=== PATIENT | female | born 1965 | race Caucasian/White ===

== ENCOUNTER → 2016-10-08 | Outpatient (CLI) | payer OTHER ==
[~2016-10-08] MED LIST: ATOR1TAB21 PO; AVEL1TAB PO; CLOB-25 EX; DICL75TA PO; GABA-279 PO; GABA300C3 PO; GABA600T PO; IBUP600T26 PO; LIPI10TA PO; MAGN200T PO; NICO21DI5 TD; NICO21PAT TD; NORC5TAB PO; OMEG1CAP2 PO; PRED20TA PO; VARE05TA PO; VITA100041 PO; VITA500C14 PO; VITATAB73 PO
[2016-10-08 14:59] LABS: BASO % 0.8 % (0.0-1.0); EOS # 0.2 K/mm3 (0.0-0.50); EOS % 3.9 % (0.0-3.0); LYMPH # 1.9 K/mm3 (1.5-4.5); LYMPH % 30.2 % (24.0-44.0); MEAN CORPUSCULAR HEMOGLOBIN 33.6 pg (27.0-33.0); MEAN CORPUSCULAR HGB CONC 33.4 g/dl (32.0-36.5); MEAN CORPUSCULAR VOLUME 100.4 fl (80.0-96.0); MONO # 0.3 K/mm3 (0.0-0.8); MONO % 5.8 % (0.0-5.0); NEUTROPHILS # 3.3 K/mm3 (1.8-7.7); NEUTROPHILS % 56.1 % (36.0-66.0); WHITE BLOOD COUNT 5.8 K/mm3 (4.0-10.0)
[2016-10-08 15:23] LABS: ALBUMIN 3.7 GM/DL (3.2-5.2); ALBUMIN/GLOBULIN RATIO 1.03 (1.00-1.93); ALKALINE PHOSPHATASE 76 U/L (45-117); ALT/SGPT 26 U/L (12-78); ANION GAP 6 MEQ/L (8-16); AST/SGOT 21 U/L (15-37); BILIRUBIN,TOTAL 0.3 MG/DL (0.2-1.0); BLOOD UREA NITROGEN 18 MG/DL (7-18); CARBON DIOXIDE LEVEL 30 MEQ/L (21-32); CHLORIDE LEVEL 102 MEQ/L (98-107); CREATININE FOR GFR 0.76 MG/DL (0.55-1.02); GLOMERULAR FILTRATION RATE > 60.0 (>51); GLUCOSE, FASTING 71 MG/DL (70-105); POTASSIUM SERUM 4.4 MEQ/L (3.5-5.1); SODIUM LEVEL 138 MEQ/L (136-145); TOTAL PROTEIN 7.3 GM/DL (6.4-8.2)
[2016-10-09 11:02] LABS: ALBUMIN 3.99 GM/DL (3.29-5.55); ALBUMIN % 54.6 % (55.8-66.1); GAMMA GLOBULIN % 16.1 % (11.1-18.8)
== END ==
LOC: M LAB 14:24
PROVIDERS: ATTEND Physician Assistant Medical
DX: M54.5 Low back pain (principal)

== ENCOUNTER → 2016-10-08 | Outpatient (CLI) | payer OTHER ==
--- NOTE | 2016-10-08 15:46 | REP ---
Clinical: Spondylosis. Technique: AP, lateral, flexion/extension, bilateral oblique, and coned-down views of the lumbosacral spine. Findings: Mild chronic levoconvex scoliosis appreciated along with minimal anterior spurring, endplate sclerosis and disc space narrowing predominantly at the L4-5 and L5-S1 levels. No acute fracture / compression injury or subluxation. Alignment and lordosis maintained. Impression: Chronic levoconvex scoliosis and mild degenerative changes primarily involving the L4-5 and L5-S1 levels. Signed by Jose Mace MD 10/08/2016 03:37 P
--- NOTE | 2016-10-08 15:53 | REP ---
Clinical: Back pain. Technique: AP and lateral views. Findings: Alignment and kyphosis maintained. Moderate multilevel degenerative changes include anterior osteophytosis with endplate sclerosis and disc space narrowing. No acute fracture / compression injury or subluxation. Impression: Satisfactory alignment. Moderate multilevel degenerative changes. Signed by Jose Mace MD 10/08/2016 03:45 P
--- NOTE | 2016-10-08 15:55 | REP ---
Clinical: Spondylosis. Technique: AP, lateral, flexion/extension, swimmer's, bilateral oblique, and open mouth views. Comparison: 01/14/2016. Findings: Lordosis maintained. Mild multilevel degenerative changes include subtle anterior spurring with endplate sclerosis and minimal disc space narrowing primarily involving the C4-5 and C5-6 levels. Extension view suggests 2 mm of anterolisthesis at the C4-5 and C3-4 levels. No acute fracture / compression injury. Spinous processes are intact. Open mouth view demonstrates normal C1-C2 articulation and odontoid process. Impression: Mild multilevel degenerative changes as noted above. Signed by Jose Mace MD 10/08/2016 03:47 P
== END ==
LOC: M RAD 14:28
PROVIDERS: ATTEND Neurological Surgery
DX: M43.04 Spondylolysis, thoracic region (principal); M47.892 Other spondylosis, cervical region; M47.896 Other spondylosis, lumbar region

== ENCOUNTER → 2016-10-10 | Outpatient (CLI) | payer OTHER ==
--- NOTE | 2016-10-10 16:14 | REP ---
Clinical: Pain . Technique: Internal rotation, external rotation, and Y view left shoulder . Findings: No acute fracture or dislocation. The acromioclavicular and glenohumeral joints are intact. No periarticular calcifications or degenerative changes are appreciated. Sub acromial space is normal. Surrounding soft tissues are unremarkable. Impression: Age appropriate left shoulder radiograph series. Signed by Jose Mace MD 10/10/2016 04:05 P
== END ==
LOC: M RAD 14:58
PROVIDERS: ATTEND Neurological Surgery
DX: M25.512 Pain in left shoulder (principal)

== ENCOUNTER → 2016-11-26 | Outpatient (CLI) | payer OTHER ==
[~2016-11-26] MED LIST changes: +GABA-282 PO; -GABA300C3 PO; +NAPR500T2 PO; +NORC1TAB4 PO; -NORC5TAB PO; +OMEP40CA2 PO; +TIZA2TA PO; +TRAM1CAP15 PO; +TYLE325C PO
[2016-11-28 00:08] LABS: Lyme Disease IgG/IgM Antibodie <0.91 ISR (0.00-0.90); Lyme Disease IgM Ab Quantitati <0.80 index (0.00-0.79)
== END ==
LOC: M LAB 12:26
PROVIDERS: ATTEND Orthopaedic Surgery
DX: S76.112A Strain of left quadriceps muscle, fascia and tendon, initial encounter (principal); X58.XXXA Exposure to other specified factors, initial encounter; Y92.89 Other specified places as the place of occurrence of the external cause; Y93.89 Activity, other specified; Y99.8 Other external cause status

== ENCOUNTER → 2016-12-08 | Outpatient (CLI) | payer OTHER ==
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
== END ==
LOC: M PAIN 15:40
PROVIDERS: ATTEND Nurse Practitioner Family
DX: G89.29 Other chronic pain (principal); M54.2 Cervicalgia; M79.1 Myalgia; E78.00 Pure hypercholesterolemia, unspecified; M19.90 Unspecified osteoarthritis, unspecified site; H90.5 Unspecified sensorineural hearing loss; M47.819 Spondylosis without myelopathy or radiculopathy, site unspecified; F17.200 Nicotine dependence, unspecified, uncomplicated; Z79.899 Other long term (current) drug therapy

== ENCOUNTER → 2016-12-15 | Outpatient (CLI) | payer OTHER | LOC: M LAB 13:22 | PROVIDERS: ATTEND Neurological Surgery | DX: M06.9 Rheumatoid arthritis, unspecified (principal) ==

== ENCOUNTER → 2016-12-17 | Outpatient (CLI) | payer OTHER ==
--- NOTE | 2016-12-17 11:09 | REP ---
MRI RIGHT SHOULDER: TECHNIQUE: Axial T2 fat sat, gradient echo, sagittal oblique T2 fat sat, coronal oblique T1, T2 fat sat. There is mild ill-defined high signal in the supraspinatus tendon compatible with tendinopathy/tendinitis. I do not see a discrete tear of any of the rotator cuff tendons. There are mild hypertrophic degenerative changes of the acromioclavicular joint. Acromion is curved in shape. Biceps tendon is within the bicipital groove with a very small amount of surrounding fluid. There is no Hill-Sachs deformity. Deltoid muscle demonstrates no abnormal signal. There appears to be fraying at the biceps labral complex. I cannot see a discrete labral tear. Subchondral cystic changes are seen in the humeral head. There is no occult fracture. Small amount of fluid is seen in the subacromial subdeltoid bursae suggesting an element of bursitis. IMPRESSION: Supraspinatus tendinopathy/tendinitis without evidence of a rotator cuff tear. Mild hypertrophic degenerative changes of the acromioclavicular joint. Curved shape of the acromion. Fraying at the biceps cayla complex without a discrete labral tear. Subchondral cystic changes humeral head. A small amount of fluid in the subacromial subdeltoid bursae suggests an element of bursitis. Signed by Speedy Smith MD 12/18/2016 04:41 P
== END ==
LOC: M RAD 09:27
PROVIDERS: ATTEND Orthopaedic Surgery
DX: R93.7 Abnormal findings on diagnostic imaging of other parts of musculoskeletal system (principal); M75.41 Impingement syndrome of right shoulder; M25.512 Pain in left shoulder

== ENCOUNTER 2016-12-19 11:45 | Outpatient (RCR) | payer OTHER | END 2016-12-21 | LOC: M PT 11:45 | PROVIDERS: ATTEND Orthopaedic Surgery | DX: Z51.89 Encounter for other specified aftercare (principal); M75.41 Impingement syndrome of right shoulder ==

== ENCOUNTER → 2017-01-02 | Outpatient (CLI) | payer OTHER ==
[~2017-01-02] MED LIST changes: +BUPIVACAINE HCL 0.25% 10 ML VIAL As Ordered ONE; +BUPIVACAINE HCL 0.25% 30 ML VIAL As Ordered ONE; +TRIAMCINOLONE ACETONIDE SUSP 40 MG/ML VIAL (J3301) As Ordered ONE; +diazePAM 5 MG TAB As Ordered ONE; +oxyCODONE 5MG TAB As Ordered ONE
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
== END ==
LOC: M PAIN 08:40
PROVIDERS: ATTEND Anesthesiology
DX: G89.29 Other chronic pain (principal); M79.1 Myalgia; M54.2 Cervicalgia; M25.511 Pain in right shoulder; M25.512 Pain in left shoulder; E78.00 Pure hypercholesterolemia, unspecified; M19.90 Unspecified osteoarthritis, unspecified site; H91.93 Unspecified hearing loss, bilateral; M51.9 Unspecified thoracic, thoracolumbar and lumbosacral intervertebral disc disorder; F17.210 Nicotine dependence, cigarettes, uncomplicated; Z79.899 Other long term (current) drug therapy

== ENCOUNTER → 2017-01-08 | Outpatient (REF) | payer OTHER ==
[~2017-01-08] MED LIST changes: -BUPIVACAINE HCL 0.25% 10 ML VIAL As Ordered ONE; -BUPIVACAINE HCL 0.25% 30 ML VIAL As Ordered ONE; -TRIAMCINOLONE ACETONIDE SUSP 40 MG/ML VIAL (J3301) As Ordered ONE; -diazePAM 5 MG TAB As Ordered ONE; -oxyCODONE 5MG TAB As Ordered ONE
== END ==
LOC: M SFHCWAGY 14:07
PROVIDERS: ATTEND Nurse Practitioner Family
DX: Z01.419 Encounter for gynecological examination (general) (routine) without abnormal findings (principal)

== ENCOUNTER 2017-01-15 15:15 | Outpatient (RCR) | payer OTHER | END 2017-01-21 | disposition home or self-care (01) | LOC: M PT 15:15 | PROVIDERS: ATTEND Orthopaedic Surgery | DX: Z51.89 Encounter for other specified aftercare (principal); M75.41 Impingement syndrome of right shoulder ==

== ENCOUNTER → 2017-01-28 | Outpatient (CLI) | payer OTHER ==
[~2017-01-28] MED LIST changes: -AVEL1TAB PO; +AVEL1TAB3 PO; +IBUP-1022 PO; -IBUP600T26 PO; -NAPR500T2 PO; +NAPR500T3 PO; +VITA-182 PO; -VITA100041 PO
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
== END ==
LOC: M PAIN 14:00
PROVIDERS: ATTEND Nurse Practitioner Family
DX: M54.2 Cervicalgia (principal); M79.1 Myalgia; Z79.891 Long term (current) use of opiate analgesic; Z79.899 Other long term (current) drug therapy; F17.210 Nicotine dependence, cigarettes, uncomplicated

== ENCOUNTER → 2017-02-19 | Outpatient (CLI) | payer OTHER ==
[~2017-02-19] MED LIST changes: +BUPIVACAINE HCL 0.25% 10 ML VIAL As Ordered ONE; +BUPIVACAINE HCL 0.25% 30 ML VIAL As Ordered ONE; +TRIAMCINOLONE ACETONIDE SUSP 40 MG/ML VIAL (J3301) As Ordered ONE; +diazePAM 5 MG TAB As Ordered ONE; +oxyCODONE 5MG TAB As Ordered ONE
--- NOTE | 2017-03-02 00:02 | ECWPNPC ---
PATIENT NAME: OMAR REYES : 1965 GENDER: FEMALE VISIT DATE: 02/19/2017 DISCHARGE DATE: 02/19/179 VISIT LOCKED DATE TIME: PHYSICIAN: ZEKE SNOW RESOURCE: ZEKE SNOW REASON FOR APPOINTMENT 1. NECK AND SHOULDERS HISTORY OF PRESENT ILLNESS HISTORY OF PRESENT ILLNESS: PAIN THE PATIENT DESCRIBES THE PAIN... FALL RISK SCREENING: SCREENING :NO FALLS IN THE PAST YEAR CURRENT MEDICATIONS TAKING TIZANIDINE HCL 4 MG TABLET 2 TABS ORALLY BID, NOTES: 02/18/17 1930 TAKING ATORVASTATIN CALCIUM 20 MG TABLET 1 TABLET ORALLY ONCE A DAY, NOTES: 02/19/17 0800A TAKING GABAPENTIN 800 MG TABLET 1 CAPSULE ORALLY TID, NOTES: 02/19/17 0800A TAKING DICLOFENAC SODIUM 75 MG TABLET DELAYED RELEASE 1 TABLET ORALLY TWICE A DAY, NOTES: 02/19/17 0800A TAKING OMEPRAZOLE 40 MG CAPSULE DELAYED RELEASE 1 CAPSULE ORALLY ONCE A DAY, NOTES: 02/19/17 0800A TAKING CLOBETASOL PROPIONATE 0.05 % CREAM 1 APPLICATION TO AFFECTED AREA EXTERNALLY TWICE A DAY PRN, NOTES: 02/18/17 1600 TAKING TRAMADOL HCL 50 MG TABLET 2 TABS ORALLY THREE TIMES DAILY NEEDED FOR PAIN MDD=6, NOTES: 02/19/17 0530A MEDICATION LIST REVIEWED AND RECONCILED WITH THE PATIENT PAST MEDICAL HISTORY HYPERCHOLESTEREMIA NECK PAIN ARTHRITIS NERVE RELATED DEAFNESS BILATERALLY PYELONEPHRITIS DDD SPRAINED LEFT BICEP ALLERGIES N.K.D.A. SURGICAL HISTORY ACL REPAIR RIGHT 1997 CATARACT REMOVALS 2013 BREAST BIOPSY FOR BENIGN CALCIFICATIONS DR FARLEY 2014 COLONOSCOPY 05/21/15 HOSPITALIZATION/MAJOR DIAGNOSTIC PROCEDURE FLU SYMPTOMS WITH HYPOTENSION AND DEHYDRATION 07/2014 REVIEW OF SYSTEMS REVIEWED BY: PROVIDER: . CONSTITUTIONAL: ANY CHANGE IN YOUR MEDICAL CONDITION? NO . CHILLS NO . FEVER NO . INFECTION: DO YOU HAVE NEW INFECTIONS? NO . DO YOU HAVE HISTORY OF MRSA? NO . MUSCULOSKELETAL: ANY NEW PATTERNS OF PAIN OR NUMBNESS? NO . GASTROENTEROLOGY: ANY NEW CHANGE IN BOWEL CONTROL? NO . GENITOURINARY: ANY NEW CHANGE IN BLADDER CONTROL? NO . IS THERE A CHANCE YOU COULD BE ? NO . HEMATOLOGY/LYMPH: DO YOU TAKE ANY BLOOD THINNERS? (FOR EXAMPLE- COUMADIN, PLAVIX, AGGRENOX, PLATEL, PRADAXA, OR XARELTO) NO . WHEN WAS YOUR LAST DOSE? DATE: TIME: . NEUROLOGY: HAVE YOU FALLEN IN THE PAST 6 MONTHS? NO . ANY NEW EXTREMITY NUMBNESS OR WEAKNESS? NO . CARDIOLOGY: DO YOU HAVE A PACEMAKER OR DEFIBRILLATOR? NO . RESPIRATORY: HAVE YOU BEEN SICK IN THE PAST WEEK? NO . FEVER NO . FLU LIKE SYMPTOMS? NO . COUGH NO . INTEGUMENTARY: DO YOU HAVE ANY RASHES OR OPEN SORES? NO . ALLERGIC/IMMUNO: ARE YOU ALLERGIC TO SHELLFISH OR IV DYE? NO . ANY NEW ALLERGIES? NO . PSYCHIATRIC: DO YOU HAVE THOUGHTS OF HURTING YOURSELF OR SOMEONE ELSE? NO . ARE YOU ABUSED, NEGLECTED, OR IN AN UNSAFE ENVIRONMENT? NO . ENDOCRINOLOGY: ARE YOU DIABETIC? NO . OTHER: DO YOU NEED ANY PRESCRIPTIONS? NO . IF YES, PLEASE LIST: ____ . ANY NEW PROBLEMS WITH YOUR MEDICATIONS? NO . WHEN DID YOU LAST EAT? 02/19/17 0830A . WHEN DID YOU LAST DRINK? 02/19/17 1300 . WHAT DID YOU LAST DRINK? WATER . NAME OF PERSON DRIVING YOU HOME? HALEY LUNA . DO YOU HAVE ANY OTHER QUESTIONS OR CONCERNS NO . VITAL SIGNS WT 108 LBS, HT 60 IN, BMI 21.09 INDEX, BP 163/78 MM HG, HR 65 /MIN, RR 18 /MIN, TEMP 98.1 F, OXYGEN SAT % 100%, NA INITIALS SC 14:57. ASSESSMENTS MYALGIA - M79.1 (PRIMARY) PROCEDURES PN TRIGGER POINT INJECTION WITH STEROIDS PRE PROCEDURE DIAGNOSIS 1. MYALGIA 2. PAIN AT BILATERAL SHOULDER AREA, BILATERAL THORACIC AREA, AND BILATERAL LOWER BACK AREA POST PROCEDURE DIAGNOSIS 1. MYALGIA 2. PAIN AT BILATERAL SHOULDER AREA, BILATERAL THORACIC AREA, AND BILATERAL LOWER BACK AREA PROCEDURE TRIGGER POINT INJECTION AT BILATERAL SHOULDER AREA, BILATERAL THORACIC AREA, AND BILATERAL LOWER BACK AREA SURGEON DR. ZEKE SNOW VAULT WORKER NONE ANESTHESIA LOCAL PRE PROCEDURE NOTE THE PATIENT HAS A HISTORY OF CHRONIC PAIN AT THE RIGHT AND LEFT SHOULDER AREA, RIGHT AND LEFT THORACIC AREA AND RIGHT AND LEFT LOWER BACK AREA. I EVALUATE THE PATIENT AND REVIEWED THE CHART. THERE IS EVIDENCE OF BANDS OF TISSUE WITH RESTRICTION OF MOVEMENT AND PRESENCE OF TRIGGER POINT AT THE AFFECTED AREA. I WENT OVER THE RISKS, ALTERNATIVES, AND BENEFITS ASSOCIATED WITH THIS PROCEDURE. THE PATIENT WOULD LIKE TO PROCEED AND GIVE CONSENT TO PERFORMED THE PROCEDURE. THE PATIENT DENIES UNEXPLAINABLE WEIGHT LOSS, FEVER, CHILLS, OR NEW CHANGES IN URINARY OR BOWEL CONTROL DESCRIPTION OF PROCEDURE THE PATIENT WAS BROUGHT TO THE PROCEDURE ROOM AND PLACED IN THE SITTING POSITION. THE AREA WAS CLEANED WITH ALCOHOL. THE PROCEDURE WAS DONE USING ASEPTIC STERILE TECHNIQUE. I CHECKED LATERALITY AND THE LEVEL WHERE THE PROCEDURE WAS GOING TO BE PERFORMED WITH THE PATIENT AND THE SUPPORTING STAFF AT THE MOMENT OF THE TIME OUT IN THE PROCEDURE ROOM. USING A 25-GAUGE NEEDLE, TRIGGER POINTS WERE INJECTED AT THE RIGHT AND LEFT SHOULDER AREA, RIGHT AND LEFT THORACIC AREA, AND RIGHT AND LEFT LOWER BACK AREA WITH A TOTAL OF 40 ML OF BUPIVACAINE 0.25% AND KENALOG 40 MG. THERE WAS NO EVIDENCE OF BLOOD, PARESTHESIA OR CEREBROSPINAL FLUID DURING THE PROCEDURE. THE PATIENT WAS SENT TO THE RECOVERY ROOM. THE PATIENT WAS MOVING THE EXTREMITIES AND DOING WELL. THERE WAS NO COMPLICATION DURING THE PROCEDURE POST PROCEDURE NOTE THE PATIENT WILL BE SEEN IN A FOLLOW UP IN THE NEXT FEW WEEKS. INSTRUCTIONS WERE GIVEN, QUESTIONS WERE ANSWERED, AND THE PATIENT EXPRESSED UNDERSTANDING AND AGREES WITH THE PLAN. I, RC SCHWARTZ, DOCUMENTED THE ABOVE INFORMATION ACTING A SCRIBE FOR DR. SNOW. I, DR. SNOW, HAVE REVIEWED THE ABOVE DOCUMENT, SCRIBED BY RC SCHWARTZ, AND I VERIFY THAT IT IS ACCURATE PROCEDURE CODES 18613 INJECT TRIGGER POINTS 3/> DISPOSITION & COMMUNICATION FOLLOW UP 3 WEEKS ELECTRONICALLY SIGNED BY ZEKE SNOW MD ON 03/01/2017 AT 07:26 PM EDT DISCLAIMER : THIS IS A VISIT SUMMARY EXTRACTED FROM THE [employer] CHART. IT IS NOT A COPY OF THE [employer] PROGRESS NOTE. AUDREY
== END ==
LOC: M PAIN 15:20
PROVIDERS: ATTEND Anesthesiology
DX: G89.29 Other chronic pain (principal); M79.1 Myalgia; M54.2 Cervicalgia; M54.6 Pain in thoracic spine; M54.5 Low back pain; M25.511 Pain in right shoulder; M25.512 Pain in left shoulder; Z79.899 Other long term (current) drug therapy; Z79.891 Long term (current) use of opiate analgesic

== ENCOUNTER → 2017-02-20 | Outpatient (RCR) | payer OTHER ==
[~2017-02-20] MED LIST changes: -BUPIVACAINE HCL 0.25% 10 ML VIAL As Ordered ONE; -BUPIVACAINE HCL 0.25% 30 ML VIAL As Ordered ONE; -TRIAMCINOLONE ACETONIDE SUSP 40 MG/ML VIAL (J3301) As Ordered ONE; -diazePAM 5 MG TAB As Ordered ONE; -oxyCODONE 5MG TAB As Ordered ONE
== END ==
LOC: M PT 02-03 12:56
PROVIDERS: ATTEND Nurse Practitioner Family
DX: Z51.89 Encounter for other specified aftercare (principal); M79.1 Myalgia

== ENCOUNTER → 2017-03-06 | Outpatient (CLI) | payer OTHER ==
--- NOTE | 2017-03-30 00:25 | ECWPNPC ---
PATIENT NAME: OMAR REYES : 1965 GENDER: FEMALE VISIT DATE: 03/06/2017 DISCHARGE DATE: 03/06/17 1500 VISIT LOCKED DATE TIME: PHYSICIAN: MO RUDOLPH RESOURCE: MO RUDOLPH REASON FOR APPOINTMENT 1. POST TPI HISTORY OF PRESENT ILLNESS HISTORY OF PRESENT ILLNESS: PAIN THE PATIENT DESCRIBES THE PAIN... FALL RISK SCREENING: SCREENING :NO FALLS IN THE PAST YEAR TODAY'S VISIT: NOTES: RATES PAIN TODAY 1-3/10. DESCRIBES PAIN INTERMITTANT, SHARP AND TENDER. PAIN OCCURS WITH NECK AND LEFT SHOULDER MOVEMENT . CURRENT MEDICATIONS TAKING ATORVASTATIN CALCIUM 20 MG TABLET 1 TABLET ORALLY ONCE A DAY TAKING GABAPENTIN 800 MG TABLET 1 CAPSULE ORALLY TWICE DAILY, NOTES: TAKES 1/2 PILL TAKING DICLOFENAC SODIUM 75 MG TABLET DELAYED RELEASE 1 TABLET ORALLY TWICE A DAY TAKING OMEPRAZOLE 40 MG CAPSULE DELAYED RELEASE 1 CAPSULE ORALLY ONCE A DAY TAKING CLOBETASOL PROPIONATE 0.05 % CREAM 1 APPLICATION TO AFFECTED AREA EXTERNALLY TWICE A DAY PRN TAKING TRAMADOL HCL 50 MG TABLET 2 TABS ORALLY THREE TIMES DAILY NEEDED FOR PAIN MDD=6, NOTES: TAKING 2 A DAY USUALLY TAKING TIZANIDINE HCL 4 MG TABLET 2 TABS ORALLY BID, NOTES: TAKES ONLY AT NIGHT MEDICATION LIST REVIEWED AND RECONCILED WITH THE PATIENT PAST MEDICAL HISTORY HYPERCHOLESTEREMIA NECK PAIN ARTHRITIS NERVE RELATED DEAFNESS BILATERALLY PYELONEPHRITIS DDD SPRAINED LEFT BICEP ALLERGIES N.K.D.A. REVIEW OF SYSTEMS REVIEWED BY: PROVIDER: MO RUDOLPH POURER . CONSTITUTIONAL: ANY CHANGE IN YOUR MEDICAL CONDITION? NO . CHILLS NO . FEVER NO . INFECTION: DO YOU HAVE NEW INFECTIONS? NO . DO YOU HAVE HISTORY OF MRSA? NO . MUSCULOSKELETAL: ANY NEW PATTERNS OF PAIN OR NUMBNESS? NO . GASTROENTEROLOGY: ANY NEW CHANGE IN BOWEL CONTROL? NO . GENITOURINARY: ANY NEW CHANGE IN BLADDER CONTROL? NO . IS THERE A CHANCE YOU COULD BE ? NO . HEMATOLOGY/LYMPH: DO YOU TAKE ANY BLOOD THINNERS? (FOR EXAMPLE- COUMADIN, PLAVIX, AGGRENOX, PLATEL, PRADAXA, OR XARELTO) NO . WHEN WAS YOUR LAST DOSE? DATE: TIME: . NEUROLOGY: HAVE YOU FALLEN IN THE PAST 6 MONTHS? NO . ANY NEW EXTREMITY NUMBNESS OR WEAKNESS? NO . CARDIOLOGY: DO YOU HAVE A PACEMAKER OR DEFIBRILLATOR? NO . RESPIRATORY: HAVE YOU BEEN SICK IN THE PAST WEEK? NO . FEVER NO . FLU LIKE SYMPTOMS? NO . COUGH NO . INTEGUMENTARY: DO YOU HAVE ANY RASHES OR OPEN SORES? NO . ALLERGIC/IMMUNO: ARE YOU ALLERGIC TO SHELLFISH OR IV DYE? NO . ANY NEW ALLERGIES? NO . PSYCHIATRIC: DO YOU HAVE THOUGHTS OF HURTING YOURSELF OR SOMEONE ELSE? NO . ARE YOU ABUSED, NEGLECTED, OR IN AN UNSAFE ENVIRONMENT? NO . ENDOCRINOLOGY: ARE YOU DIABETIC? NO . OTHER: DO YOU NEED ANY PRESCRIPTIONS? NO . IF YES, PLEASE LIST: ____ . ANY NEW PROBLEMS WITH YOUR MEDICATIONS? NO . WHEN DID YOU LAST EAT? ____ . WHEN DID YOU LAST DRINK? ____ . WHAT DID YOU LAST DRINK? ____ . NAME OF PERSON DRIVING YOU HOME? ____ . DO YOU HAVE ANY OTHER QUESTIONS OR CONCERNS NO . VITAL SIGNS WT 106.2 LBS, HT 60 IN, BMI 20.74 INDEX, BP 141/88 MM HG, HR 71 /MIN, RR 16 /MIN, TEMP 98.8 F, OXYGEN SAT % 100%, NA INITIALS TL 1409. EXAMINATION GENERAL EXAMINATION: PSYCHALERT , ORIENTED X 3 , APPROPRIATE MOOD AND AFFECT , GOOD EYE CONTACT. LUNGS:CLEAR TO AUSCULTATION BILATERALLY, NO WHEEZES, RALES OR RHONCHI. HEART:NORMAL S1S2, NO MURMURS, CLICK OR RUBS. MUSCULOSKELETAL:MILD TENDERNESS OVER LEFT OCCIPITAL NOTCH, OVER THE CERVICAL SPINOUS PROCESSES AND ACROSS TRAPEZIUS MUSCLES BILATERALLY. , TRIGGER POINTS AND TIGHT FIBEROUS BANDS IDENTIFIED OVER NECK AND SHOULDER MUSCLES BILATERALLY. DECREASED ROM WITH NECK FLEXION, EXTENSION AND ROTATION. BALL MILL MIXER STRENGTH EQUAL .. NEUROLOGIC EXAM:DTR'S 2 + BILATERAL UPPER AND LOWER EXTREMITIES. HYPERSENSATIVITY TO LIGHT TOUCH ACROSS SHOULDER GIRDLE. . ASSESSMENTS MYALGIA - M79.1 (PRIMARY) CERVICALGIA - M54.2 TREATMENT MYALGIA TRIGGER POINT 3 + MO LARRY 03/06/2017 2:43:36 PM > NECK SHOULDERS, UPPER BACK NOTES: CONTINUE CURRENT EXERCISES AND STRETCHES. PREVENTIVE MEDICINE DISCUSSED PRE PROCEDURE CARE AND TPI/ PT STATES UNDERSTANDING. PROCEDURE CODES FA211 ESTABILISHED PATIENT [facility] CHARGE DISPOSITION & COMMUNICATION FOLLOW UP SCHED TPI FOR END OF FEBRUARY (REASON: CHECK AUTH FOR TPI) ELECTRONICALLY SIGNED BY NORMA CANDELARIO ON 03/29/2017 AT 10:38 AM EDT DISCLAIMER : THIS IS A VISIT SUMMARY EXTRACTED FROM THE [facility] CHART. IT IS NOT A COPY OF THE [employer] PROGRESS NOTE. AUDREY
== END ==
LOC: M PAIN 14:00
PROVIDERS: ATTEND Nurse Practitioner Family
DX: G89.29 Other chronic pain (principal); M54.2 Cervicalgia; M79.1 Myalgia; E78.00 Pure hypercholesterolemia, unspecified; M19.90 Unspecified osteoarthritis, unspecified site; Z79.899 Other long term (current) drug therapy

== ENCOUNTER 2017-03-11 11:00 | Outpatient (RCR) | payer OTHER | END 2017-03-23 | LOC: M PT 11:00 | PROVIDERS: ATTEND Nurse Practitioner Family | DX: Z51.89 Encounter for other specified aftercare (principal); M65.811 Other synovitis and tenosynovitis, right shoulder; M75.42 Impingement syndrome of left shoulder; M54.2 Cervicalgia; M79.1 Myalgia ==

== ENCOUNTER → 2017-03-12 | Outpatient (CLI) | payer OTHER ==
[2017-03-12 10:46] LABS: BASO % 0.6 % (0.0-1.0); EOS # 0.1 K/mm3 (0.0-0.50); EOS % 2.1 % (0.0-3.0); LYMPH # 2.4 K/mm3 (1.5-4.5); LYMPH % 32.6 % (24.0-44.0); MEAN CORPUSCULAR HEMOGLOBIN 30.2 pg (27.0-33.0); MEAN CORPUSCULAR HGB CONC 32.6 g/dl (32.0-36.5); MEAN CORPUSCULAR VOLUME 92.7 fl (80.0-96.0); MONO # 0.6 K/mm3 (0.0-0.8); MONO % 8.1 % (0.0-5.0); NEUTROPHILS # 3.7 K/mm3 (1.8-7.7); NEUTROPHILS % 53.8 % (36.0-66.0); RED CELL DISTRIBUTION WIDTH 14.3 % (11.5-14.5); WHITE BLOOD COUNT 6.8 K/mm3 (4.0-10.0)
[2017-03-12 11:36] LABS: ALBUMIN 3.9 GM/DL (3.2-5.2); ALBUMIN/GLOBULIN RATIO 0.98 (1.00-1.93); ALKALINE PHOSPHATASE 58 U/L (45-117); ALT/SGPT 31 U/L (12-78); ANION GAP 6 MEQ/L (8-16); AST/SGOT 22 U/L (15-37); BILIRUBIN,TOTAL 0.3 MG/DL (0.2-1.0); BLOOD UREA NITROGEN 16 MG/DL (7-18); CALCIUM LEVEL 9.5 MG/DL (8.5-10.1); CARBON DIOXIDE LEVEL 27 MEQ/L (21-32); CHLORIDE LEVEL 111 MEQ/L (98-107); CHOLESTEROL LEVEL 265 MG/DL (<200); CREATININE FOR GFR 0.97 MG/DL (0.55-1.02); GLOMERULAR FILTRATION RATE > 60.0 (>51); GLUCOSE, FASTING 80 MG/DL (70-105); POTASSIUM SERUM 4.7 MEQ/L (3.5-5.1); SODIUM LEVEL 144 MEQ/L (136-145); TOTAL PROTEIN 7.9 GM/DL (6.4-8.2); TRIGLYCERIDES LEVEL 100 MG/DL (<150)
== END ==
LOC: M LAB 09:54
PROVIDERS: ATTEND Physician Assistant Medical
DX: E78.2 Mixed hyperlipidemia (principal); E55.9 Vitamin D deficiency, unspecified

== ENCOUNTER → 2017-03-23 | Outpatient (CLI) | payer OTHER ==
[~2017-03-23] MED LIST changes: +BUPIVACAINE HCL 0.25% 10 ML VIAL As Ordered ONE; +BUPIVACAINE HCL 0.25% 30 ML VIAL As Ordered ONE; +TRIAMCINOLONE ACETONIDE SUSP 40 MG/ML VIAL (J3301) As Ordered ONE; +diazePAM 5 MG TAB As Ordered ONE; +oxyCODONE 5MG TAB As Ordered ONE
--- NOTE | 2017-04-07 00:49 | ECWPNPC ---
PATIENT NAME: OMAR REYES : 1965 GENDER: FEMALE VISIT DATE: 03/23/2017 DISCHARGE DATE: 03/23/17 1515 VISIT LOCKED DATE TIME: PHYSICIAN: ZEKE SNOW RESOURCE: ZEKE SNOW REASON FOR APPOINTMENT 1. TPI HISTORY OF PRESENT ILLNESS HISTORY OF PRESENT ILLNESS: PAIN THE PATIENT DESCRIBES THE PAIN... FALL RISK SCREENING: SCREENING :NO FALLS IN THE PAST YEAR CURRENT MEDICATIONS TAKING ATORVASTATIN CALCIUM 20 MG TABLET 1 TABLET ORALLY ONCE A DAY, NOTES: 3 WEEKS CAN TAKING GABAPENTIN 800 MG TABLET 1 CAPSULE ORALLY TWICE DAILY, NOTES: TAKES 1/2 PILL 03/23/17 0700 TAKING DICLOFENAC SODIUM 75 MG TABLET DELAYED RELEASE 1 TABLET ORALLY TWICE A DAY, NOTES: 03/23/17 07 TAKING CLOBETASOL PROPIONATE 0.05 % CREAM 1 APPLICATION TO AFFECTED AREA EXTERNALLY TWICE A DAY PRN, NOTES: 03/22/17 TAKING TRAMADOL HCL 50 MG TABLET 2 TABS ORALLY THREE TIMES DAILY NEEDED FOR PAIN MDD=6, NOTES: 03/23/17 0700 TAKING TIZANIDINE HCL 4 MG TABLET 2 TABS ORALLY BID, NOTES: 03/22/17 2200 NOT-TAKING OMEPRAZOLE 40 MG CAPSULE DELAYED RELEASE 1 CAPSULE ORALLY ONCE A DAY MEDICATION LIST REVIEWED AND RECONCILED WITH THE PATIENT PAST MEDICAL HISTORY HYPERCHOLESTEREMIA NECK PAIN ARTHRITIS NERVE RELATED DEAFNESS BILATERALLY PYELONEPHRITIS DDD SPRAINED LEFT BICEP ALLERGIES N.K.D.A. REVIEW OF SYSTEMS REVIEWED BY: PROVIDER: . CONSTITUTIONAL: ANY CHANGE IN YOUR MEDICAL CONDITION? NO . CHILLS NO . FEVER NO . INFECTION: DO YOU HAVE NEW INFECTIONS? NO . DO YOU HAVE HISTORY OF MRSA? NO . MUSCULOSKELETAL: ANY NEW PATTERNS OF PAIN OR NUMBNESS? NO . GASTROENTEROLOGY: ANY NEW CHANGE IN BOWEL CONTROL? NO . GENITOURINARY: ANY NEW CHANGE IN BLADDER CONTROL? NO . IS THERE A CHANCE YOU COULD BE ? NO . HEMATOLOGY/LYMPH: DO YOU TAKE ANY BLOOD THINNERS? (FOR EXAMPLE- COUMADIN, PLAVIX, AGGRENOX, PLATEL, PRADAXA, OR XARELTO) NO . WHEN WAS YOUR LAST DOSE? DATE: TIME: . NEUROLOGY: HAVE YOU FALLEN IN THE PAST 6 MONTHS? NO . ANY NEW EXTREMITY NUMBNESS OR WEAKNESS? NO . CARDIOLOGY: DO YOU HAVE A PACEMAKER OR DEFIBRILLATOR? NO . RESPIRATORY: HAVE YOU BEEN SICK IN THE PAST WEEK? NO . FEVER NO . FLU LIKE SYMPTOMS? NO . COUGH NO . INTEGUMENTARY: DO YOU HAVE ANY RASHES OR OPEN SORES? NO . ALLERGIC/IMMUNO: ARE YOU ALLERGIC TO SHELLFISH OR IV DYE? NO . ANY NEW ALLERGIES? NO . PSYCHIATRIC: DO YOU HAVE THOUGHTS OF HURTING YOURSELF OR SOMEONE ELSE? NO . ARE YOU ABUSED, NEGLECTED, OR IN AN UNSAFE ENVIRONMENT? NO . ENDOCRINOLOGY: ARE YOU DIABETIC? NO . OTHER: DO YOU NEED ANY PRESCRIPTIONS? NO . IF YES, PLEASE LIST: ____ . ANY NEW PROBLEMS WITH YOUR MEDICATIONS? NO . WHEN DID YOU LAST EAT? ____03/22/17 1800 . WHEN DID YOU LAST DRINK? ____03/23/17 1900 . WHAT DID YOU LAST DRINK? ____WATER . NAME OF PERSON DRIVING YOU HOME? ____SHEBA BINGHAM . DO YOU HAVE ANY OTHER QUESTIONS OR CONCERNS NO . VITAL SIGNS WT 106.2 LBS, HT 60 IN, BMI 20.74 INDEX, BP 147/101 MM HG, REPEAT BP 130/84 MANUAL, HR 78 /MIN, RR 16 /MIN, TEMP 98.3 F, OXYGEN SAT % 99%, SAFE IN ENV? (Y/N) YES, NA INITIALS TL 1326, REVIEWED BY: LAS. SINGH MYALGIA - M79.1 (PRIMARY) PROCEDURES PN TRIGGER POINT INJECTION WITH STEROIDS PRE PROCEDURE DIAGNOSIS 1. MYALGIA 2. PAIN AT LEFT NECK AREA AND BILATERAL SHOULDER AREA POST PROCEDURE DIAGNOSIS 1. MYALGIA 2. PAIN AT LEFT NECK AREA AND BILATERAL SHOULDER AREA PROCEDURE TRIGGER POINT INJECTION AT LEFT NECK AREA AND BILATERAL SHOULDER AREA SURGEON DR. ZEKE SNOW MACHINE II CUTTER NONE ANESTHESIA LOCAL PRE PROCEDURE NOTE THE PATIENT HAS A HISTORY OF CHRONIC PAIN AT THE LEFT NECK AREA AND RIGHT AND LEFT SHOULDER AREA. I EVALUATE THE PATIENT AND REVIEWED THE CHART. THERE IS EVIDENCE OF BANDS OF TISSUE WITH RESTRICTION OF MOVEMENT AND PRESENCE OF TRIGGER POINT AT THE AFFECTED AREA. I WENT OVER THE RISKS, ALTERNATIVES, AND BENEFITS ASSOCIATED WITH THIS PROCEDURE. THE PATIENT WOULD LIKE TO PROCEED AND GIVE CONSENT TO PERFORMED THE PROCEDURE. THE PATIENT DENIES UNEXPLAINABLE WEIGHT LOSS, FEVER, CHILLS, OR NEW CHANGES IN URINARY OR BOWEL CONTROL DESCRIPTION OF PROCEDURE THE PATIENT WAS BROUGHT TO THE PROCEDURE ROOM AND PLACED IN THE SITTING POSITION. THE AREA WAS CLEANED WITH ALCOHOL. THE PROCEDURE WAS DONE USING ASEPTIC STERILE TECHNIQUE. I CHECKED LATERALITY AND THE LEVEL WHERE THE PROCEDURE WAS GOING TO BE PERFORMED WITH THE PATIENT AND THE SUPPORTING STAFF AT THE MOMENT OF THE TIME OUT IN THE PROCEDURE ROOM. USING A 25-GAUGE NEEDLE, TRIGGER POINTS WERE INJECTED AT THE LEFT NECK AREA AND RIGHT AND LEFT SHOULDER AREA WITH A TOTAL OF 40 ML OF BUPIVACAINE 0.25% AND KENALOG 40 MG. THERE WAS NO EVIDENCE OF BLOOD, PARESTHESIA OR CEREBROSPINAL FLUID DURING THE PROCEDURE. THE PATIENT WAS SENT TO THE RECOVERY ROOM. THE PATIENT WAS MOVING THE EXTREMITIES AND DOING WELL. THERE WAS NO COMPLICATION DURING THE PROCEDURE POST PROCEDURE NOTE THE PATIENT WILL BE SEEN IN A FOLLOW UP IN THE NEXT FEW WEEKS. INSTRUCTIONS WERE GIVEN, QUESTIONS WERE ANSWERED, AND THE PATIENT EXPRESSED UNDERSTANDING AND AGREES WITH THE PLAN. I, RC SCHWARTZ, DOCUMENTED THE ABOVE INFORMATION ACTING A SCRIBE FOR DR. SNOW. I HAVE REVIEWED THE ABOVE DOCUMENT, WRITTEN BY RC CONTRERAS AND I VERIFY THAT IT IS ACCURATE PROCEDURE CODES 63987 INJECT TRIGGER POINTS 3/> DISPOSITION & COMMUNICATION FOLLOW UP 3 WEEKS ELECTRONICALLY SIGNED BY ZEKE SNOW MD ON 04/06/2017 AT 08:01 PM EDT DISCLAIMER : THIS IS A VISIT SUMMARY EXTRACTED FROM THE [employer] CHART. IT IS NOT A COPY OF THE [employer] PROGRESS NOTE. AUDREY
== END ==
LOC: M PAIN 13:00
PROVIDERS: ATTEND Anesthesiology
DX: G89.29 Other chronic pain (principal); M54.2 Cervicalgia; M25.511 Pain in right shoulder; M25.512 Pain in left shoulder; M79.1 Myalgia; E78.00 Pure hypercholesterolemia, unspecified; M19.90 Unspecified osteoarthritis, unspecified site; Z79.899 Other long term (current) drug therapy
CPT/HCPCS: 20553; J3301

== ENCOUNTER → 2017-04-08 | Outpatient (CLI) | payer OTHER ==
[~2017-04-08] MED LIST changes: -BUPIVACAINE HCL 0.25% 10 ML VIAL As Ordered ONE; -BUPIVACAINE HCL 0.25% 30 ML VIAL As Ordered ONE; -TRIAMCINOLONE ACETONIDE SUSP 40 MG/ML VIAL (J3301) As Ordered ONE; -diazePAM 5 MG TAB As Ordered ONE; -oxyCODONE 5MG TAB As Ordered ONE
--- NOTE | 2017-04-23 00:55 | ECWPNPC ---
PATIENT NAME: OMAR REYES : 1965 GENDER: FEMALE VISIT DATE: 04/08/2017 DISCHARGE DATE: 04/08/17 1411 VISIT LOCKED DATE TIME: PHYSICIAN: MO RUDOLPH RESOURCE: MO RUDOLPH REASON FOR APPOINTMENT 1. POST PROCEDURE HISTORY OF PRESENT ILLNESS HISTORY OF PRESENT ILLNESS: PAIN THE PATIENT DESCRIBES THE PAIN... FALL RISK SCREENING: SCREENING :NO FALLS IN THE PAST YEAR TODAY'S VISIT: NOTES: S/P TRIGGER POINT INJECTION COMPLETED ON. 03/23/17. RATES PAIN TODAY 2/10. PAIN IS CENTERED AT BASE OF LEFT NECK AND AT BILATERAL TEMPLES. HAS NOTED SIGNIFICANT IMPROVEMENT IN PAIN AND MOVEMENT.. CURRENT MEDICATIONS TAKING DICLOFENAC SODIUM 75 MG TABLET DELAYED RELEASE 1 TABLET ORALLY TWICE A DAY TAKING CLOBETASOL PROPIONATE 0.05 % CREAM 1 APPLICATION TO AFFECTED AREA EXTERNALLY TWICE A DAY PRN TAKING TRAMADOL HCL 50 MG TABLET 2 TABS ORALLY THREE TIMES DAILY NEEDED FOR PAIN MDD=6 TAKING TIZANIDINE HCL 4 MG TABLET 2 TABS ORALLY BID TAKING HYDROXYCHLOROQUINE SULFATE 200 MG TABLET 1 TABLET WITH FOOD OR MILK ORALLY TWICE A DAY TAKING EZETIMIBE 10 MG TABLET 1 TABLET ORALLY ONCE A DAY TAKING OMEPRAZOLE 40 MG CAPSULE DELAYED RELEASE 1 CAPSULE ORALLY ONCE A DAY DISCONTINUED ATORVASTATIN CALCIUM 20 MG TABLET 1 TABLET ORALLY ONCE A DAY DISCONTINUED GABAPENTIN 800 MG TABLET 1 CAPSULE ORALLY TWICE DAILY MEDICATION LIST REVIEWED AND RECONCILED WITH THE PATIENT PAST MEDICAL HISTORY HYPERCHOLESTEREMIA NECK PAIN ARTHRITIS NERVE RELATED DEAFNESS BILATERALLY PYELONEPHRITIS DDD SPRAINED LEFT BICEP ALLERGIES N.K.D.A. 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 CONSTITUTIONAL: ANY CHANGE IN YOUR MEDICAL CONDITION? YES, ANEMIA- IS HAVING TESTING DONE. . CHILLS NO . FEVER NO . INFECTION: DO YOU HAVE NEW INFECTIONS? YES, RESPIRATORY INFECTION. . DO YOU HAVE HISTORY OF MRSA? NO . MUSCULOSKELETAL: ANY NEW PATTERNS OF PAIN OR NUMBNESS? YES, EVERY MORNING HAS A HEADACHE. . GASTROENTEROLOGY: ANY NEW CHANGE IN BOWEL CONTROL? NO . GENITOURINARY: ANY NEW CHANGE IN BLADDER CONTROL? NO . IS THERE A CHANCE YOU COULD BE ? NO . HEMATOLOGY/LYMPH: DO YOU TAKE ANY BLOOD THINNERS? (FOR EXAMPLE- COUMADIN, PLAVIX, AGGRENOX, PLATEL, PRADAXA, OR XARELTO) NO . WHEN WAS YOUR LAST DOSE? DATE: TIME: . ANEMIA BEING EVALUATED BY PCP . NEUROLOGY: HAVE YOU FALLEN IN THE PAST 6 MONTHS? NO . ANY NEW EXTREMITY NUMBNESS OR WEAKNESS? NO . CARDIOLOGY: DO YOU HAVE A PACEMAKER OR DEFIBRILLATOR? NO . RESPIRATORY: HAVE YOU BEEN SICK IN THE PAST WEEK? NO . FEVER NO . FLU LIKE SYMPTOMS? NO . COUGH NO . INTEGUMENTARY: DO YOU HAVE ANY RASHES OR OPEN SORES? YES, RASH ON BACK, CREAM NOT HELPING THIS TIME. KEEPS COMING BACK. . ALLERGIC/IMMUNO: ARE YOU ALLERGIC TO SHELLFISH OR IV DYE? NO . ANY NEW ALLERGIES? NO . PSYCHIATRIC: DO YOU HAVE THOUGHTS OF HURTING YOURSELF OR SOMEONE ELSE? NO . ARE YOU ABUSED, NEGLECTED, OR IN AN UNSAFE ENVIRONMENT? NO . ENDOCRINOLOGY: ARE YOU DIABETIC? NO . OTHER: DO YOU NEED ANY PRESCRIPTIONS? NO . IF YES, PLEASE LIST: ____ . ANY NEW PROBLEMS WITH YOUR MEDICATIONS? NO . WHEN DID YOU LAST EAT? ____ . WHEN DID YOU LAST DRINK? ____ . WHAT DID YOU LAST DRINK? ____ . NAME OF PERSON DRIVING YOU HOME? ____ . DO YOU HAVE ANY OTHER QUESTIONS OR CONCERNS TPI HAVE HELPED A LOT. STILL PRETTY COMFORTABLE FOR THE MOST PART. [facility] STILL DOING PT- TWICE WEEKLY. . VITAL SIGNS WT 101.8 LBS, HT 60 IN, BMI 19.88 INDEX, BP 145/99 MM HG, HR 70 /MIN, RR 18 /MIN, TEMP 98.5 F, OXYGEN SAT % 98%, REVIEWED BY: VIKTOR [id number]. EXAMINATION GENERAL EXAMINATION: PSYCHALERT , ORIENTED X 3 , APPROPRIATE MOOD AND AFFECT , GOOD EYE CONTACT. LUNGS:CLEAR TO AUSCULTATION BILATERALLY, NO WHEEZES, RALES OR RHONCHI. HEART:NORMAL S1S2, NO MURMURS, CLICK OR RUBS. MUSCULOSKELETAL:MILD TENDERNESS OVER LEFT OCCIPITAL NOTCH, OVER THE CERVICAL SPINOUS PROCESSES AND ACROSS TRAPEZIUS MUSCLES BILATERALLY. , IMPROVED ROM WITH NECK FLEXION, EXTENSION AND ROTATION. 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 NEUROLOGIC EXAM:DTR'S 2 + BILATERAL UPPER AND LOWER EXTREMITIES. HYPERSENSATIVITY TO LIGHT TOUCH ACROSS SHOULDER GIRDLE LEFT > RIGHT.. 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 LABS LAB: EBVQPCR LOG10 EBV DNA QN PCR TNP (. - ) [employer], SUPPORT 04/14/2017 12:16:01 : THIS ORDER WAS CREATED BY THE INTERFACE. PROCEDURE CODES FA211 ESTABILISHED PATIENT [facility] CHARGE DISPOSITION & COMMUNICATION FOLLOW UP 6 WEEKS (REASON: NECK/PAIN) ELECTRONICALLY SIGNED BY NORMA CANDELARIO ON 04/22/2017 AT 07:17 PM EDT DISCLAIMER : THIS IS A VISIT SUMMARY EXTRACTED FROM THE [employer] CHART. IT IS NOT A COPY OF THE [employer] PROGRESS NOTE. MTDD
== END ==
LOC: M PAIN 13:00
PROVIDERS: ATTEND Nurse Practitioner Family
DX: G89.29 Other chronic pain (principal); M54.2 Cervicalgia; M35.9 Systemic involvement of connective tissue, unspecified; M79.1 Myalgia; M19.90 Unspecified osteoarthritis, unspecified site; D64.9 Anemia, unspecified; R51 Headache; Z79.899 Other long term (current) drug therapy

== ENCOUNTER → 2017-04-08 | Outpatient (CLI) | payer OTHER ==
[2017-04-14 00:11] LABS: EBV PCR QUANTITATIVE Negative copies/mL (Negative)
== END ==
LOC: M LAB 14:29
PROVIDERS: ATTEND Nurse Practitioner Family
DX: M79.1 Myalgia (principal)

== ENCOUNTER → 2017-04-08 | Outpatient (CLI) | payer OTHER ==
[2017-04-08 15:02] LABS: BASO % 0.4 % (0.0-1.0); EOS # 0.1 K/mm3 (0.0-0.50); LYMPH # 2.2 K/mm3 (1.5-4.5); LYMPH % 29.2 % (24.0-44.0); MEAN CORPUSCULAR HEMOGLOBIN 29.6 pg (27.0-33.0); MEAN CORPUSCULAR HGB CONC 32.3 g/dl (32.0-36.5); MEAN CORPUSCULAR VOLUME 91.4 fl (80.0-96.0); MONO # 0.3 K/mm3 (0.0-0.8); MONO % 4.9 % (0.0-5.0); NEUTROPHILS # 4.3 K/mm3 (1.8-7.7); NEUTROPHILS % 62.4 % (36.0-66.0); RED CELL DISTRIBUTION WIDTH 15.1 % (11.5-14.5); WHITE BLOOD COUNT 6.9 K/mm3 (4.0-10.0)
[2017-04-08 16:27] LABS: FERRITIN 6 NG/ML (8-252)
== END ==
LOC: M LAB 14:32
PROVIDERS: ATTEND Physician Assistant Medical
DX: D64.9 Anemia, unspecified (principal)

== ENCOUNTER 2017-04-16 14:30 | Outpatient (RCR) | payer OTHER | END 2017-04-23 | LOC: M PT 14:30 | PROVIDERS: ATTEND Nurse Practitioner Family | DX: Z51.89 Encounter for other specified aftercare (principal); M65.811 Other synovitis and tenosynovitis, right shoulder; M75.42 Impingement syndrome of left shoulder; M79.1 Myalgia ==

== ENCOUNTER → 2017-07-06 | Outpatient (CLI) | payer OTHER ==
--- NOTE | 2017-07-09 00:01 | ECGEPIP ---
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
== END ==
LOC: M EKG 11:13 → M LAB 11:13
PROVIDERS: ATTEND Physician Assistant Medical
DX: R07.9 Chest pain, unspecified (principal); R94.31 Abnormal electrocardiogram [ECG] [EKG]

== ENCOUNTER → 2017-07-23 | Outpatient (CLI) | payer OTHER ==
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
== END ==
LOC: M PAIN 13:30
PROVIDERS: ATTEND Nurse Practitioner Family
DX: M79.1 Myalgia (principal); M54.2 Cervicalgia; M35.9 Systemic involvement of connective tissue, unspecified; F17.210 Nicotine dependence, cigarettes, uncomplicated; Z79.891 Long term (current) use of opiate analgesic; Z79.899 Other long term (current) drug therapy; Z88.8 Allergy status to other drugs, medicaments and biological substances

== ENCOUNTER → 2017-08-12 | Outpatient (CLI) | payer OTHER ==
[~2017-08-12] MED LIST changes: +CONRAY-43 43% 50ML VIAL (Q9960) As Ordered ONE; +PROHANCE 279.3MG/ML 5ML VIAL (A9576) As Ordered ONE
--- NOTE | 2017-08-13 20:31 | REP ---
Procedure: Left shoulder arthrogram The procedure was performed under the direct supervision of Dr. Smith. History: Left shoulder pain The benefits and risks including but not limited to pain, infection, bleeding and anaphylaxis were explained to the patient and informed consent was obtained. Technique: The left glenohumeral joint space was localized using fluoroscopic guidance. The skin was prepped and draped in a sterile fashion. 1% lidocaine was used as a local anesthetic. Using fluoroscopic guidance a 22 gauge spinal needle was inserted and advanced into the joint. 0.5 ml of Conray 43 was injected to verify placement. 11 ml of a solution containing 20 ml of sterile saline and 0.15 ml of ProHance was injected into the joint. The needle was removed and the patient was taken to MRI for postprocedural imaging. The the patient tolerated the procedure well and there were no immediate complications. Less than 6 seconds of fluoro time was utilized for this procedure. Reviewed by EDITA Wright 08/12/2017 04:17 PSigned by Speedy Smith MD 08/13/2017 08:21 P
--- NOTE | 2017-08-14 12:19 | REP ---
MRI ARTHROGRAM OF THE LEFT SHOULDER: TECHNIQUE: Axial T2 fat sat, gradient echo, sagittal oblique T2 fat sat, coronal oblique T1, T2 fat sat. There are mild hypertrophic degenerative changes of the acromioclavicular joint with type 2 acromion. The supraspinatus tendon demonstrates diffuse ill-defined high signal on T2-weighted images compatible with tendinopathy/tendinitis. There is somewhat confluent signal along the bursal surface of the tendon suggesting a partial tear of the tendon. The other rotator cuff tendons are intact. The biceps tendon is within the bicipital groove with no tenosynovitis. There is no Hill-Sachs deformity. The deltoid muscle demonstrates no abnormal signal. There is fraying at the biceps labral complex. There also appears to be some abnormal linear signal in the superior labrum compatible with a SLAP tear. Other portions of the labrum appear intact. There is no paralabral cyst. There are tiny subchondral cystic changes in the superolateral humeral head. There is no occult fracture. There is a normal amount of joint fluid. There is mild diffuse chondromalacia of the glenohumeral joint. IMPRESSION: Mild hypertrophic degenerative changes acromioclavicular joint with a type 2 acromion. Diffuse supraspinatus tendinopathy/tendinitis with partial tear along the bursal surface of the tendon anteriorly. Fraying at the biceps labral complex with a SLAP tear.
== END ==
LOC: M RADPRO 07:04
PROVIDERS: ATTEND Physician Assistant Surgical
DX: M75.42 Impingement syndrome of left shoulder (principal); M19.012 Primary osteoarthritis, left shoulder; M65.812 Other synovitis and tenosynovitis, left shoulder; M75.82 Other shoulder lesions, left shoulder
CPT/HCPCS: 23350; 73223; 77002; A9576; Q9960

== ENCOUNTER → 2017-08-12 | Outpatient (CLI) | payer OTHER ==
[~2017-08-12] MED LIST changes: -CONRAY-43 43% 50ML VIAL (Q9960) As Ordered ONE; -PROHANCE 279.3MG/ML 5ML VIAL (A9576) As Ordered ONE
--- NOTE | 2017-08-12 14:19 | REPMRS ---
Patient History The patient states she had a clinical breast exam in 01/07 No known family history of cancer. Benign radio exam breast specimen of the left breast, May 23, 2015. Benign stereotatic loc for ea lesion of the left breast, May 23, 2015. Digital Woman Screen Mammo: August 12, 2017 - Exam #: [id number] Bilateral CC and MLO view(s) were taken. Technologist: Magali Acosta, Technologist Prior study comparison: April 25, 2015, left breast digital mammo diagnostic unilateral, performed at [facility]. April 13, 2015, digital woman screen mammo performed at [facility]. FINDINGS: The breast tissue is heterogeneously dense. This may lower the sensitivity of mammography. There has been no change in the appearance of the mammogram from the prior studies. There is a moderate amount of residual fibroglandular tissue which is fairly symmetric. There is no interval development of dominant mass, areas of architectural distortion, or clustered microcalcification typical of malignancy. ASSESSMENT: BI-RADS/ACR category 1 mammogram. Negative. Recommendation Routine screening mammogram in 1 year (for women over age 40). This mammogram was interpreted with the aid of an FDA-approved computer-aided dectection system. Electronically Signed By: Speedy Smith MD 08/12/17 [id number]
== END ==
LOC: M WHC 10:34
PROVIDERS: ATTEND Nurse Practitioner Family
DX: Z12.31 Encounter for screening mammogram for malignant neoplasm of breast (principal); R92.8 Other abnormal and inconclusive findings on diagnostic imaging of breast

== ENCOUNTER → 2017-08-26 | Outpatient (CLI) | payer OTHER ==
[~2017-08-26] MED LIST changes: -ATOR1TAB21 PO; -AVEL1TAB3 PO; +BUPIVACAINE HCL 0.25% 10 ML VIAL As Ordered; +BUPIVACAINE HCL 0.25% 30 ML VIAL As Ordered; -CLOB-25 EX; -DICL75TA PO; -GABA-279 PO; -GABA-282 PO; -GABA600T PO; -IBUP-1022 PO; -LIPI10TA PO; -MAGN200T PO; -NAPR500T3 PO; -NICO21DI5 TD; -NICO21PAT TD; -NORC1TAB4 PO; -OMEG1CAP2 PO; -OMEP40CA2 PO; -PRED20TA PO; -TIZA2TA PO; -TRAM1CAP15 PO; +TRIAMCINOLONE ACETONIDE SUSP 40 MG/ML VIAL (J3301) As Ordered; -TYLE325C PO; -VARE05TA PO; -VITA-182 PO; -VITA500C14 PO; -VITATAB73 PO; +diazePAM 5 MG TAB As Ordered; +oxyCODONE 5MG TAB As Ordered
== END ==
LOC: M PAIN 15:30
DX: G89.29 Other chronic pain (principal); M54.2 Cervicalgia; M25.512 Pain in left shoulder; M54.6 Pain in thoracic spine; M79.1 Myalgia; E78.00 Pure hypercholesterolemia, unspecified; M35.9 Systemic involvement of connective tissue, unspecified; Z88.6 Allergy status to analgesic agent; Z88.8 Allergy status to other drugs, medicaments and biological substances; Z79.899 Other long term (current) drug therapy
CPT/HCPCS: J3301

== ENCOUNTER → 2017-09-16 | Outpatient (CLI) | payer OTHER | LOC: M PAIN 10:00 | DX: M54.2 Cervicalgia (principal); M35.9 Systemic involvement of connective tissue, unspecified; M79.1 Myalgia; E78.00 Pure hypercholesterolemia, unspecified; F17.210 Nicotine dependence, cigarettes, uncomplicated; Z79.891 Long term (current) use of opiate analgesic; Z79.899 Other long term (current) drug therapy; Z88.8 Allergy status to other drugs, medicaments and biological substances | CPT/HCPCS: G0463 ==

== ENCOUNTER → 2017-10-05 | Outpatient (CLI) | payer OTHER | LOC: M PAIN 13:15 | DX: G89.29 Other chronic pain (principal); M79.1 Myalgia; F17.210 Nicotine dependence, cigarettes, uncomplicated; Z79.899 Other long term (current) drug therapy; Z79.891 Long term (current) use of opiate analgesic; Z88.8 Allergy status to other drugs, medicaments and biological substances | CPT/HCPCS: J3301 ==

== ENCOUNTER → 2017-11-04 | Outpatient (CLI) | payer OTHER | LOC: M PAIN 14:30 | DX: M79.1 Myalgia (principal); M54.2 Cervicalgia; M35.9 Systemic involvement of connective tissue, unspecified; Z79.891 Long term (current) use of opiate analgesic; Z79.899 Other long term (current) drug therapy; Z88.8 Allergy status to other drugs, medicaments and biological substances | CPT/HCPCS: G0463 ==

== ENCOUNTER → 2017-11-17 | Outpatient (CLI) | payer OTHER | LOC: M WHC 10:51 | DX: N95.1 Menopausal and female climacteric states (principal); N92.6 Irregular menstruation, unspecified; D25.9 Leiomyoma of uterus, unspecified | CPT/HCPCS: 76830 ==

== ENCOUNTER → 2017-11-27 | Outpatient (CLI) | payer OTHER | LOC: M PAIN 11:00 | DX: G89.29 Other chronic pain (principal); M79.1 Myalgia; M54.2 Cervicalgia; M25.511 Pain in right shoulder; M25.512 Pain in left shoulder; M54.5 Low back pain; E78.00 Pure hypercholesterolemia, unspecified; M19.90 Unspecified osteoarthritis, unspecified site; K21.9 Gastro-esophageal reflux disease without esophagitis; M35.9 Systemic involvement of connective tissue, unspecified; D50.9 Iron deficiency anemia, unspecified; F17.210 Nicotine dependence, cigarettes, uncomplicated; Z79.891 Long term (current) use of opiate analgesic; Z79.899 Other long term (current) drug therapy; Z88.8 Allergy status to other drugs, medicaments and biological substances | CPT/HCPCS: J3301 ==

== ENCOUNTER 2017-12-18 13:06 | Day surgery (SDC) | payer OTHER ==
[2017-12-18] MEDS: NS 1,000 ML IV (13:00)
[2017-12-18] MEDS ORDERED: fentaNYL 100 MCG/2 ML INJECTION (J3010) As Ordered (14:00)
== END 2017-12-18 15:13 | disposition home or self-care (01) ==
LOC: M OPP 13:06
DX: R63.4 Abnormal weight loss (principal); K57.30 Diverticulosis of large intestine without perforation or abscess without bleeding; K64.8 Other hemorrhoids; R13.10 Dysphagia, unspecified; F45.8 Other somatoform disorders; K31.89 Other diseases of stomach and duodenum; E78.5 Hyperlipidemia, unspecified; K21.9 Gastro-esophageal reflux disease without esophagitis; D64.9 Anemia, unspecified; R00.8 Other abnormalities of heart beat; M19.90 Unspecified osteoarthritis, unspecified site; F41.9 Anxiety disorder, unspecified; M51.9 Unspecified thoracic, thoracolumbar and lumbosacral intervertebral disc disorder; M35.9 Systemic involvement of connective tissue, unspecified; M54.89 Other dorsalgia; G43.909 Migraine, unspecified, not intractable, without status migrainosus; F17.210 Nicotine dependence, cigarettes, uncomplicated; Z79.899 Other long term (current) drug therapy; Z88.8 Allergy status to other drugs, medicaments and biological substances
CPT/HCPCS: 45378

== ENCOUNTER → 2018-01-12 | Outpatient (CLI) | payer OTHER | LOC: M PAIN 11:30 | DX: M79.1 Myalgia (principal); M54.2 Cervicalgia; E78.00 Pure hypercholesterolemia, unspecified; M19.90 Unspecified osteoarthritis, unspecified site; K21.9 Gastro-esophageal reflux disease without esophagitis; M35.9 Systemic involvement of connective tissue, unspecified; F17.210 Nicotine dependence, cigarettes, uncomplicated; Z79.891 Long term (current) use of opiate analgesic; Z79.899 Other long term (current) drug therapy; Z88.8 Allergy status to other drugs, medicaments and biological substances | CPT/HCPCS: G0463 ==

== ENCOUNTER → 2018-01-19 | Outpatient (CLI) | payer OTHER ==
[2018-01-19 12:28] LABS: BASO % 0.5 % (0.0-1.0); EOS # 0.1 10^3/uL (0.0-0.50); EOS % 1.3 % (0.0-3.0); HEMATOCRIT 42.2 % (36.0-47.0); HEMOGLOBIN 14.5 g/dl (12.0-15.5); IMMATURE GRANULOCYTE % 0.4 % (0-3.0); LYMPH # 2.3 10^3/uL (1.5-4.5); LYMPH % 30.4 % (24.0-44.0); MEAN CORPUSCULAR HEMOGLOBIN 33.6 pg (27.0-33.0); MEAN CORPUSCULAR HGB CONC 34.4 g/dl (32.0-36.5); MEAN CORPUSCULAR VOLUME 97.7 fl (80.0-96.0); MONO # 0.7 10^3/uL (0.0-0.8); MONO % 9.1 % (0.0-5.0); NEUTROPHILS # 4.4 10^3/uL (1.8-7.7); NEUTROPHILS % 58.3 % (36.0-66.0); PLATELET COUNT, AUTOMATED 428 10^3/uL (150-450); RED BLOOD COUNT 4.32 10^6/uL (4.00-5.40); RED CELL DISTRIBUTION WIDTH 13.5 % (11.5-14.5); WHITE BLOOD COUNT 7.6 10^3/uL (4.0-10.0)
[2018-01-19 12:56] LABS: ALBUMIN 3.7 GM/DL (3.2-5.2); ALBUMIN/GLOBULIN RATIO 0.88 (1.00-1.93); ALKALINE PHOSPHATASE 78 U/L (45-117); ALT/SGPT 25 U/L (12-78); ANION GAP 4 MEQ/L (8-16); AST/SGOT 28 U/L (7-37); BILIRUBIN,TOTAL 0.3 MG/DL (0.2-1.0); BLOOD UREA NITROGEN 6 MG/DL (7-18); CALCIUM LEVEL 9.3 MG/DL (8.5-10.1); CARBON DIOXIDE LEVEL 29 MEQ/L (21-32); CHLORIDE LEVEL 104 MEQ/L (98-107); CREATININE FOR GFR 0.63 MG/DL (0.55-1.30); FREE T4 1.06 NG/DL (0.76-1.46); GLOMERULAR FILTRATION RATE > 60.0 (>51); GLUCOSE, FASTING 87 MG/DL (70-100); POTASSIUM SERUM 4.5 MEQ/L (3.5-5.1); SODIUM LEVEL 137 MEQ/L (136-145); TOTAL PROTEIN 7.9 GM/DL (6.4-8.2)
[2018-01-19 13:42] LABS: ESTIMATED AVERAGE GLUCOSE 105 MG/DL (60-110); HEMOGLOBIN A1c 5.3 %
[2018-01-20 11:31] LABS: HIV 1&2 SCREEN CENTAUR NEGATIVE (NEGATIVE)
== END ==
LOC: M LAB 11:44
DX: R63.4 Abnormal weight loss (principal)
CPT/HCPCS: 84443

== ENCOUNTER 2018-02-12 17:36 | Emergency (ER) | payer OTHER ==
[2018-02-12] MEDS: NORCO 5/325MG TABLET (BULK FOR ED) PO (20:00)
== END 2018-02-12 20:28 | disposition home or self-care (01) ==
LOC: M ED 17:36
DX: S93.402A Sprain of unspecified ligament of left ankle, initial encounter (principal); X50.1XXA Overexertion from prolonged static or awkward postures, initial encounter; Y92.9 Unspecified place or not applicable; Y93.01 Activity, walking, marching and hiking; Y99.9 Unspecified external cause status; R51 Headache; M54.9 Dorsalgia, unspecified; Z72.0 Tobacco use; Z79.899 Other long term (current) drug therapy
CPT/HCPCS: 73630

== ENCOUNTER → 2018-02-15 | Outpatient (CLI) | payer OTHER | LOC: M PAIN 14:45 | DX: M79.1 Myalgia (principal); M54.2 Cervicalgia; M46.96 Unspecified inflammatory spondylopathy, lumbar region; E78.2 Mixed hyperlipidemia; M19.90 Unspecified osteoarthritis, unspecified site; K21.9 Gastro-esophageal reflux disease without esophagitis; M35.9 Systemic involvement of connective tissue, unspecified; F17.210 Nicotine dependence, cigarettes, uncomplicated; Z79.899 Other long term (current) drug therapy; Z88.8 Allergy status to other drugs, medicaments and biological substances | CPT/HCPCS: G0463 ==

== ENCOUNTER → 2018-03-02 | Outpatient (CLI) | payer OTHER | LOC: M RAD 10:29 | DX: M79.1 Myalgia (principal) | CPT/HCPCS: 72114 ==

== ENCOUNTER → 2018-03-12 | Outpatient (CLI) | payer OTHER ==
[~2018-03-12] MED LIST changes: -BUPIVACAINE HCL 0.25% 10 ML VIAL As Ordered; -BUPIVACAINE HCL 0.25% 30 ML VIAL As Ordered; +ISOVUE-370 76% 100ML VIAL (Q9967) As Ordered; -TRIAMCINOLONE ACETONIDE SUSP 40 MG/ML VIAL (J3301) As Ordered; -diazePAM 5 MG TAB As Ordered; -oxyCODONE 5MG TAB As Ordered
== END ==
LOC: M RAD 11:56
DX: J31.0 Chronic rhinitis (principal); M54.2 Cervicalgia
CPT/HCPCS: Q9967

== ENCOUNTER → 2018-03-16 | Outpatient (CLI) | payer OTHER | LOC: M PAIN 13:45 | DX: M79.1 Myalgia (principal); M54.2 Cervicalgia; M46.96 Unspecified inflammatory spondylopathy, lumbar region; E78.00 Pure hypercholesterolemia, unspecified; M19.90 Unspecified osteoarthritis, unspecified site; K21.9 Gastro-esophageal reflux disease without esophagitis; M35.9 Systemic involvement of connective tissue, unspecified; F17.210 Nicotine dependence, cigarettes, uncomplicated; Z79.899 Other long term (current) drug therapy; Z88.8 Allergy status to other drugs, medicaments and biological substances | CPT/HCPCS: G0463 ==

== ENCOUNTER → 2018-03-22 | Outpatient (REF) | payer OTHER | LOC: M SFHCPLAZ 09:23 | DX: D04.5 Carcinoma in situ of skin of trunk (principal) | CPT/HCPCS: 88305 ==

== ENCOUNTER → 2018-04-07 | Outpatient (REF) | payer OTHER ==
[2018-04-07 17:37] LABS: APPEARANCE, URINE CLEAR (CLEAR); BACTERIA, URINE AUTO NEGATIVE (NEGATIVE); BILIRUBIN, URINE AUTO NEGATIVE (NEGATIVE); BLOOD, URINE BLOOD 1+ (NEGATIVE); COLOR, URINE YELLOW (YELLOW); GLUCOSE, URINE (UA) AUTO 1+ mg/dL (NEGATIVE); KETONE, URINE AUTO TRACE mg/dL (NEGATIVE); LEUKOCYTE ESTERASE, URINE AUTO NEGATIVE (NEGATIVE); NITRITE, URINE AUTO NEGATIVE (NEGATIVE); PROTEIN, URINE AUTO NEGATIVE (NEGATIVE); RBC, URINE AUTO 4 /HPF (0-3); SPECIFIC GRAVITY URINE AUTO 1.014 (1.002-1.035); SQUAMOUS EPITHELIAL CELL UR AU 0 /HPF (0-6); UROBILINOGEN, URINE AUTO 0.2 mg/dL (0.0-2.0); WBC, URINE AUTO 0 /HPF (0-3)
== END ==
LOC: M SFHCPLAZ 15:20
DX: R63.4 Abnormal weight loss (principal); J34.89 Other specified disorders of nose and nasal sinuses

== ENCOUNTER → 2018-04-12 | Outpatient (REF) | payer OTHER ==
[2018-04-12 14:36] LABS: APPEARANCE, URINE HAZY (CLEAR); BACTERIA, URINE AUTO 1+ (NEGATIVE); BILIRUBIN, URINE AUTO NEGATIVE (NEGATIVE); BLOOD, URINE BLOOD 2+ (NEGATIVE); COLOR, URINE YELLOW (YELLOW); GLUCOSE, URINE (UA) AUTO NEGATIVE (NEGATIVE); KETONE, URINE AUTO NEGATIVE (NEGATIVE); LEUKOCYTE ESTERASE, URINE AUTO NEGATIVE (NEGATIVE); NITRITE, URINE AUTO NEGATIVE (NEGATIVE); PROTEIN, URINE AUTO NEGATIVE (NEGATIVE); RBC, URINE AUTO 1 /HPF (0-3); SPECIFIC GRAVITY URINE AUTO 1.003 (1.002-1.035); SQUAMOUS EPITHELIAL CELL UR AU 2 /HPF (0-6); UROBILINOGEN, URINE AUTO 0.2 mg/dL (0.0-2.0); WBC, URINE AUTO 2 /HPF (0-3)
[2018-04-16 08:06] LABS: O+P EXAM Final report (.)
== END ==
LOC: M SFHCPLAZ 14:07
DX: R63.4 Abnormal weight loss (principal)
CPT/HCPCS: 81001

== ENCOUNTER → 2018-04-12 | Outpatient (CLI) | payer OTHER | LOC: M PAIN 14:00 | DX: M79.1 Myalgia (principal); M54.2 Cervicalgia; M46.96 Unspecified inflammatory spondylopathy, lumbar region; E78.00 Pure hypercholesterolemia, unspecified; M19.90 Unspecified osteoarthritis, unspecified site; K21.9 Gastro-esophageal reflux disease without esophagitis; M35.9 Systemic involvement of connective tissue, unspecified; F17.210 Nicotine dependence, cigarettes, uncomplicated; Z79.891 Long term (current) use of opiate analgesic; Z79.899 Other long term (current) drug therapy; Z88.8 Allergy status to other drugs, medicaments and biological substances | CPT/HCPCS: G0463 ==

== ENCOUNTER 2018-04-26 13:14 | Emergency (ER) | payer OTHER ==
[2018-04-26] MEDS: DOXYCYCLINE HYCLATE 100 MG TAB PO (16:30)
== END 2018-04-26 16:46 | disposition home or self-care (01) ==
LOC: M ED 13:14
DX: M25.462 Effusion, left knee (principal); L03.116 Cellulitis of left lower limb; S80.212A Abrasion, left knee, initial encounter; W01.198A Fall on same level from slipping, tripping and stumbling with subsequent striking against other object, initial encounter; Y92.828 Other wilderness area as the place of occurrence of the external cause; H10.021 Other mucopurulent conjunctivitis, right eye; K21.9 Gastro-esophageal reflux disease without esophagitis; E78.5 Hyperlipidemia, unspecified; G43.909 Migraine, unspecified, not intractable, without status migrainosus; M54.9 Dorsalgia, unspecified; Z87.442 Personal history of urinary calculi; F17.210 Nicotine dependence, cigarettes, uncomplicated; Z79.899 Other long term (current) drug therapy; Z79.890 Hormone replacement therapy
CPT/HCPCS: 73564

== ENCOUNTER 2018-04-28 11:44 | Emergency (ER) | payer OTHER | END 2018-04-28 12:58 | disposition left against medical advice (07) | LOC: M ED 11:44 | DX: Z53.21 Procedure and treatment not carried out due to patient leaving prior to being seen by health care provider (principal) ==

== ENCOUNTER 2018-04-28 15:32 | Emergency (ER) | payer OTHER ==
[2018-04-28] MEDS: NS 1,000 ML IV (18:20)
[2018-04-28 18:36] LABS: BASO # 0.1 10^3/uL (0.0-0.2); BASO % 0.8 % (0.0-1.0); EOS # 0.2 10^3/uL (0.0-0.50); EOS % 2.6 % (0.0-3.0); HEMATOCRIT 38.5 % (36.0-47.0); HEMOGLOBIN 13.3 g/dl (12.0-15.5); IMMATURE GRANULOCYTE % 0.1 % (0-3.0); LYMPH # 3.4 10^3/uL (1.5-4.5); MEAN CORPUSCULAR HEMOGLOBIN 33.8 pg (27.0-33.0); MEAN CORPUSCULAR HGB CONC 34.5 g/dl (32.0-36.5); MONO # 0.7 10^3/uL (0.0-0.8); MONO % 9.7 % (0.0-5.0); NEUTROPHILS # 2.9 10^3/uL (1.8-7.7); NEUTROPHILS % 39.8 % (36.0-66.0); PLATELET COUNT, AUTOMATED 395 10^3/uL (150-450); RED BLOOD COUNT 3.93 10^6/uL (4.00-5.40); RED CELL DISTRIBUTION WIDTH 14.3 % (11.5-14.5); WHITE BLOOD COUNT 7.3 10^3/uL (4.0-10.0)
[2018-04-28 18:58] LABS: ANION GAP 9 MEQ/L (8-16); BLOOD UREA NITROGEN 11 MG/DL (7-18); C REACTIVE PROTEIN QUANTITATIV 0.31 MG/DL (0.00-0.30); CALCIUM LEVEL 9.1 MG/DL (8.5-10.1); CARBON DIOXIDE LEVEL 27 MEQ/L (21-32); CHLORIDE LEVEL 107 MEQ/L (98-107); CREATININE FOR GFR 0.62 MG/DL (0.55-1.30); GLOMERULAR FILTRATION RATE > 60.0 (>51); GLUCOSE, FASTING 80 MG/DL (70-100); POTASSIUM SERUM 3.6 MEQ/L (3.5-5.1); SODIUM LEVEL 143 MEQ/L (136-145)
[2018-04-28 19:04] LABS: ERYTHROCYTE SEDIMENTATION RATE 37 mm/hr (0-30)
[2018-04-28 19:05] LABS: LACTIC ACID SEPSIS PROTOCOL 1.2 MMOL/L (0.4-2.0)
[2018-04-28] MEDS: cefTRIAXone SOD 1 GM in D5W MINI-BAG PLUS 50 ML IV (21:21)
== END 2018-04-28 22:06 | disposition home or self-care (01) ==
LOC: M ED 15:32
DX: L03.116 Cellulitis of left lower limb (principal); F17.200 Nicotine dependence, unspecified, uncomplicated; Z79.890 Hormone replacement therapy; Z79.899 Other long term (current) drug therapy
CPT/HCPCS: J0696

== ENCOUNTER → 2018-05-24 | Outpatient (CLI) | payer OTHER | LOC: M PAIN 13:45 | DX: M79.10 Myalgia, unspecified site (principal); M54.2 Cervicalgia; M46.96 Unspecified inflammatory spondylopathy, lumbar region; M25.542 Pain in joints of left hand; M25.541 Pain in joints of right hand; E78.00 Pure hypercholesterolemia, unspecified; M19.90 Unspecified osteoarthritis, unspecified site; K21.9 Gastro-esophageal reflux disease without esophagitis; M35.9 Systemic involvement of connective tissue, unspecified; F17.210 Nicotine dependence, cigarettes, uncomplicated; Z79.899 Other long term (current) drug therapy; Z92.89 Personal history of other medical treatment | CPT/HCPCS: G0463 ==

== ENCOUNTER → 2018-05-27 | Outpatient (REF) | payer OTHER ==
[2018-05-29 15:28] LABS: HPV HYBRID CAPTURE II Negative (Negative)
== END ==
LOC: M SFHCWAGY 12:13
DX: Z12.4 Encounter for screening for malignant neoplasm of cervix (principal)

== ENCOUNTER 2018-06-01 20:02 | Emergency (ER) | payer OTHER ==
[2018-06-01] MEDS: PERCOCET 5MG/325MG TAB PO (21:26)
[2018-06-01] MEDS ORDERED: LIDOCAINE 1% MDV INJ 50 ML VIAL SC (22:30)
[2018-06-01] MEDS: MORPHINE 4 MG/ML 1ML VIAL/SYRINGE (J2270) IM (22:37)
[2018-06-01] MEDS: LIDOCAINE 1% MDV 20ML VIAL SC (22:52)
[2018-06-01] MEDS: OXYCODONE/APAP 5MG/325MG(BULK FOR ED) 1 TABLET PO (23:48)
== END 2018-06-01 23:51 | disposition home or self-care (01) ==
LOC: M ED 20:02
DX: S52.531A Colles' fracture of right radius, initial encounter for closed fracture (principal); W22.8XXA Striking against or struck by other objects, initial encounter; Y92.099 Unspecified place in other non-institutional residence as the place of occurrence of the external cause; Y93.9 Activity, unspecified; Y99.9 Unspecified external cause status; J01.90 Acute sinusitis, unspecified; Z72.0 Tobacco use; Z79.899 Other long term (current) drug therapy
CPT/HCPCS: J2270

== ENCOUNTER → 2018-06-21 | Outpatient (CLI) | payer OTHER | LOC: M PAIN 13:45 | DX: M79.18 Myalgia, other site (principal); M54.2 Cervicalgia; M46.96 Unspecified inflammatory spondylopathy, lumbar region; M79.601 Pain in right arm; M19.90 Unspecified osteoarthritis, unspecified site; E78.00 Pure hypercholesterolemia, unspecified; K21.9 Gastro-esophageal reflux disease without esophagitis; F17.210 Nicotine dependence, cigarettes, uncomplicated; Z79.899 Other long term (current) drug therapy; Z88.8 Allergy status to other drugs, medicaments and biological substances | CPT/HCPCS: G0463 ==

== ENCOUNTER → 2018-09-10 | Outpatient (CLI) | payer OTHER ==
[~2018-09-10] MED LIST changes: +ATOR1TAB21 PO; +AVEL1TAB3 PO; +BACL10TA2; +CLOB-25 EX; +DICL1GEL3 TOP; +DICL75TA PO; +DOXY100C PO; +DULO1CAP; +ESTR25TA PO; +EZET10TA PO; +GABA-1171 PO; +GABA-843 PO; +GABA600T4 PO; +HYDR200T3 PO; +IBUP-1022 PO; -ISOVUE-370 76% 100ML VIAL (Q9967) As Ordered; +KEFL500C17 PO; +LIPI10TA PO; +LORA-243; +MAGN200T PO; +MEDR5TAB3 PO; +MELO7.5T7; +NAPR-885 PO; +NICO21DI6 TD; +NICO21PAT TD; +NORC1TAB4 PO; +NORCOTAB PO; +OFLO3OPSO OD; +OMEG1CAP2 PO; +OMEP40CA2 PO; +PRED20TA PO; +PROV5TAB2; +TIZA2TA PO; +TRAM1CAP15 PO; +TYLE325C PO; +VALA1TAB2; +VARE05TA PO; +VITA-182 PO; +VITA500C14 PO; +VITATAB73 PO
[2018-09-10 12:50] LABS: BASO # 0.1 10^3/uL (0.0-0.2); BASO % 0.6 % (0.0-1.0); EOS # 0.3 10^3/uL (0.0-0.50); EOS % 2.9 % (0.0-3.0); HEMATOCRIT 42.5 % (36.0-47.0); HEMOGLOBIN 14.3 g/dl (12.0-15.5); LYMPH # 1.9 10^3/uL (1.5-4.5); MEAN CORPUSCULAR HEMOGLOBIN 32.8 pg (27.0-33.0); MEAN CORPUSCULAR HGB CONC 33.6 g/dl (32.0-36.5); MEAN CORPUSCULAR VOLUME 97.5 fl (80.0-96.0); MONO # 1.1 10^3/uL (0.0-0.8); MONO % 11.4 % (0.0-5.0); NEUTROPHILS # 6.2 10^3/uL (1.8-7.7); NEUTROPHILS % 64.8 % (36.0-66.0); PLATELET COUNT, AUTOMATED 460 10^3/uL (150-450); RED BLOOD COUNT 4.36 10^6/uL (4.00-5.40); WHITE BLOOD COUNT 9.5 10^3/uL (4.0-10.0)
[2018-09-10 13:12] LABS: ALBUMIN 3.3 GM/DL (3.2-5.2); ALT/SGPT 16 U/L (12-78); BILIRUBIN,TOTAL 0.3 MG/DL (0.2-1.0); BLOOD UREA NITROGEN 10 MG/DL (7-18); C REACTIVE PROTEIN QUANTITATIV 7.12 MG/DL (0.00-0.30); CALCIUM LEVEL 9.2 MG/DL (8.5-10.1); CARBON DIOXIDE LEVEL 32 MEQ/L (21-32); CHLORIDE LEVEL 99 MEQ/L (98-107); CREATININE FOR GFR 0.75 MG/DL (0.55-1.30); GLOMERULAR FILTRATION RATE > 60.0 (>51); GLUCOSE, FASTING 98 MG/DL (70-100); POTASSIUM SERUM 4.1 MEQ/L (3.5-5.1); SODIUM LEVEL 137 MEQ/L (136-145); TOTAL PROTEIN 7.7 GM/DL (6.4-8.2)
[2018-09-10 13:25] LABS: ERYTHROCYTE SEDIMENTATION RATE 61 mm/hr (0-30)
--- NOTE | 2018-09-10 13:40 | REP ---
Chest two views HISTORY: Cough Comparison: 12/11/2015 The lungs are hyperinflated. A minimal increase in interstitial markings is present in the lungs consistent with chronic interstitial change. The heart is normal in size. The pulmonary vasculature is normal in appearance. Degenerative change is present in the thoracic spine. IMPRESSION: Chronic interstitial change. Electronically Signed by Sean Grimes MD 09/10/2018 01:32 P
== END ==
LOC: M LAB 12:16
PROVIDERS: ATTEND Physician Assistant Medical
DX: J01.90 Acute sinusitis, unspecified (principal)

== ENCOUNTER → 2018-09-14 | Outpatient (CLI) | payer OTHER ==
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
== END ==
LOC: M PAIN 11:30
PROVIDERS: ATTEND Nurse Practitioner Family
DX: M79.18 Myalgia, other site (principal); M54.2 Cervicalgia; K21.9 Gastro-esophageal reflux disease without esophagitis; E78.00 Pure hypercholesterolemia, unspecified; M19.90 Unspecified osteoarthritis, unspecified site; F17.210 Nicotine dependence, cigarettes, uncomplicated; Z79.899 Other long term (current) drug therapy; Z88.8 Allergy status to other drugs, medicaments and biological substances

== ENCOUNTER → 2018-09-22 | Outpatient (REF) | payer OTHER | LOC: M SFHCPLAZ 15:52 | PROVIDERS: ATTEND Dermatology | DX: D23.72 Other benign neoplasm of skin of left lower limb, including hip (principal) ==

== ENCOUNTER → 2018-09-30 | Outpatient (REF) | payer OTHER | LOC: M SFHCPLAZ 14:30 | PROVIDERS: ATTEND Family Medicine | DX: R07.89 Other chest pain (principal) ==

== ENCOUNTER → 2018-10-01 | Outpatient (REF) | payer OTHER | LOC: M SFHCPLAZ 11:45 | PROVIDERS: ATTEND Family Medicine | DX: R07.89 Other chest pain (principal) ==

== ENCOUNTER 2018-10-02 07:06 | Emergency (ER) | payer OTHER ==
[~2018-10-02] VITALS: Ht 152.4 cm; Wt 45.0 kg
[2018-10-02] MEDS ORDERED: ASPIRIN 81 MG CHEW TABLET PO ONE (07:30)
[2018-10-02] MEDS ORDERED: NITROGLYCERIN 0.4 MG SUBL TABLET SL PRN (07:30)
[2018-10-02] MEDS ORDERED: NS 500 ML IV ONE (07:30)
[2018-10-02 07:38] VITALS: BP 138/93
[2018-10-02] MEDS ORDERED: HEPARIN SOD (PORCINE) 5000 UNITS/ML VIAL IV ONE (07:45)
[2018-10-02] MEDS ORDERED: FAMOTIDINE 20 MG TAB PO ONE (07:45)
[2018-10-02] MEDS ORDERED: CLOPIDOGREL 300 MG TAB (PLAVIX) PO ONE (07:45)
[2018-10-02 07:51] LABS: BASO % 0.8 % (0.0-1.0); EOS # 0.2 10^3/uL (0.0-0.50); EOS % 3.2 % (0.0-3.0); HEMATOCRIT 41.3 % (36.0-47.0); LYMPH # 2.1 10^3/uL (1.5-4.5); LYMPH % 40.3 % (24.0-44.0); MEAN CORPUSCULAR HEMOGLOBIN 32.9 pg (27.0-33.0); MEAN CORPUSCULAR HGB CONC 33.9 g/dl (32.0-36.5); MEAN CORPUSCULAR VOLUME 96.9 fl (80.0-96.0); MONO # 0.6 10^3/uL (0.0-0.8); NEUTROPHILS # 2.4 10^3/uL (1.8-7.7); NEUTROPHILS % 44.5 % (36.0-66.0); PLATELET COUNT, AUTOMATED 483 10^3/uL (150-450); RED BLOOD COUNT 4.26 10^6/uL (4.00-5.40); WHITE BLOOD COUNT 5.3 10^3/uL (4.0-10.0)
[2018-10-02] MEDS ORDERED: HEPARIN DRIP 25,000 UNITS in APPROPRIATE DILUENT 1 EA IV SCH (08:00)
[2018-10-02 08:03] LABS: INR 0.84; PROTHROMBIN TIME 11.6 SECONDS (12.1-14.4)
[2018-10-02 08:04] LABS: PARTIAL THROMBOPLASTIN TIME 28.5 SECONDS (25.4-37.6)
[2018-10-02] MEDS ORDERED: PERCOCET 5MG/325MG TAB PO ONE (08:15)
[2018-10-02 08:20] LABS: ALBUMIN 3.6 GM/DL (3.2-5.2); ALT/SGPT 26 U/L (12-78); BILIRUBIN,DIRECT < 0.1 MG/DL (0.0-0.2); BILIRUBIN,TOTAL 0.2 MG/DL (0.2-1.0); BLOOD UREA NITROGEN 8 MG/DL (7-18); CALCIUM LEVEL 8.8 MG/DL (8.5-10.1); CARBON DIOXIDE LEVEL 30 MEQ/L (21-32); CHLORIDE LEVEL 105 MEQ/L (98-107); CPK CREATINE PHOSPHOKINASE 107 U/L (26-192); CREATININE FOR GFR 0.65 MG/DL (0.55-1.30); GLOMERULAR FILTRATION RATE > 60.0 (>51); GLUCOSE, FASTING 92 MG/DL (70-100); LIPASE 160 U/L (73-393); MB/CK RELATIVE INDEX 1.31 (< OR =4); NT-PRO BNP 1015 PG/ML (<125); SODIUM LEVEL 139 MEQ/L (136-145); TOTAL PROTEIN 7.8 GM/DL (6.4-8.2); TROPONIN I 0.19 NG/ML (< 0.10)
[2018-10-02 08:22] VITALS: BP 128/80
--- NOTE | 2018-10-02 09:39 | REP ---
PORTABLE CHEST: AP portable view of the chest is performed. I see no acute infiltrate. Heart is normal in size and the mediastinal silhouette is unremarkable and unchanged compared to a prior study of 09/10/2018. IMPRESSION: No evidence of acute pulmonary disease. Electronically Signed by Speedy Smith MD 10/02/2018 07:19 P
--- NOTE | 2018-10-02 19:15 | ECGEPIP ---
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
== END 2018-10-02 08:26 | disposition short-term general hospital (02) ==
LOC: M ED 07:06
DX: I21.4 Non-ST elevation (NSTEMI) myocardial infarction (principal); E78.5 Hyperlipidemia, unspecified; F32.9 Major depressive disorder, single episode, unspecified; F17.200 Nicotine dependence, unspecified, uncomplicated; Z82.49 Family history of ischemic heart disease and other diseases of the circulatory system; Z79.899 Other long term (current) drug therapy

== ENCOUNTER 2018-10-21 13:59 | Emergency (ER) | payer OTHER ==
[~2018-10-21] VITALS: Ht 152.4 cm; Wt 44.0 kg
[2018-10-21] MEDS ORDERED: ASPI-125 PO (14:22)
[2018-10-21] MEDS ORDERED: ASPI81TA85 PO (14:22)
[2018-10-21] MEDS ORDERED: CLOP75TA2 PO (14:22)
[2018-10-21] MEDS ORDERED: METO1TAB87 PO (14:25)
[2018-10-21] MEDS ORDERED: NITR0.4S14 SL (14:25)
[2018-10-21] MEDS ORDERED: NITROGLYCERIN 2% OINT 1 GM *U/D* PKT TOP ONE (14:30)
[2018-10-21] MEDS ORDERED: ONDANSETRON 4MG/2ML VIAL (J2405) IV ONE (14:30)
[2018-10-21 14:37] LABS: BASO % 0.5 % (0.0-1.0); EOS # 0.2 10^3/uL (0.0-0.50); EOS % 2.3 % (0.0-3.0); HEMATOCRIT 40.4 % (36.0-47.0); HEMOGLOBIN 13.5 g/dl (12.0-15.5); LYMPH # 2.6 10^3/uL (1.5-4.5); LYMPH % 35.8 % (24.0-44.0); MEAN CORPUSCULAR HGB CONC 33.4 g/dl (32.0-36.5); MEAN CORPUSCULAR VOLUME 98.8 fl (80.0-96.0); MONO # 0.7 10^3/uL (0.0-0.8); MONO % 8.9 % (0.0-5.0); NEUTROPHILS # 3.8 10^3/uL (1.8-7.7); NEUTROPHILS % 52.2 % (36.0-66.0); PLATELET COUNT, AUTOMATED 501 10^3/uL (150-450); RED BLOOD COUNT 4.09 10^6/uL (4.00-5.40); WHITE BLOOD COUNT 7.3 10^3/uL (4.0-10.0)
[2018-10-21 14:38] VITALS: BP 150/99
[2018-10-21] MEDS: MORPHINE 2 MG/ML 1ML SYRINGE (J2270) IV PRN ×3 (14:39→19:14)
[2018-10-21 14:41] LABS: INR 0.92; PROTHROMBIN TIME 12.4 SECONDS (12.1-14.4)
[2018-10-21 14:42] LABS: PARTIAL THROMBOPLASTIN TIME 28.1 SECONDS (25.4-37.6)
[2018-10-21 14:53] LABS: ALBUMIN 3.6 GM/DL (3.2-5.2); ALT/SGPT 23 U/L (12-78); BILIRUBIN,DIRECT < 0.1 MG/DL (0.0-0.2); BILIRUBIN,TOTAL 0.3 MG/DL (0.2-1.0); BLOOD UREA NITROGEN 8 MG/DL (7-18); C REACTIVE PROTEIN QUANTITATIV < 0.30 MG/DL (0.00-0.30); CALCIUM LEVEL 8.9 MG/DL (8.5-10.1); CARBON DIOXIDE LEVEL 29 MEQ/L (21-32); CHLORIDE LEVEL 105 MEQ/L (98-107); CK-MB VALUE MASS < 1.0 NG/ML (<3.6); CPK CREATINE PHOSPHOKINASE 70 U/L (26-192); CREATININE FOR GFR 0.73 MG/DL (0.55-1.30); GLOMERULAR FILTRATION RATE > 60.0 (>51); GLUCOSE, FASTING 100 MG/DL (70-100); LIPASE 136 U/L (73-393); MB/CK RELATIVE INDEX 1.43 (< OR =4); NT-PRO BNP 454 PG/ML (<125); POTASSIUM SERUM 3.7 MEQ/L (3.5-5.1); SODIUM LEVEL 138 MEQ/L (136-145); TOTAL PROTEIN 7.7 GM/DL (6.4-8.2); TROPONIN I < 0.02 NG/ML (< 0.10)
--- NOTE | 2018-10-21 14:55 | REP ---
Clinical: Acute chest pain. Comparison: 09/10/2018. Findings: Mediastinum and cardiac silhouette are normal. Lung lopez demonstrate chronic interstitial changes. No focal consolidation, effusion, or pneumothorax. Skeletal structures intact. Impression: No focal consolidation. Electronically Signed by Jose Mace MD 10/21/2018 02:47 P
[2018-10-21] MEDS ORDERED: LISI2.5T5 PO (15:07)
[2018-10-21 17:13] LABS: CK-MB VALUE MASS < 1.0 NG/ML (<3.6); CPK CREATINE PHOSPHOKINASE 61 U/L (26-192); MB/CK RELATIVE INDEX 1.64 (< OR =4); TROPONIN I < 0.02 NG/ML (< 0.10)
[2018-10-21 19:20] VITALS: BP 115/77
--- NOTE | 2018-10-23 08:30 | ECGEPIP ---
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
--- NOTE | 2018-10-23 09:44 | ECGEPIP ---
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
== END 2018-10-21 19:22 | disposition short-term general hospital (02) ==
LOC: M ED 13:59
DX: I20.9 Angina pectoris, unspecified (principal); I21.9 Acute myocardial infarction, unspecified; M54.5 Low back pain; R06.02 Shortness of breath; E78.5 Hyperlipidemia, unspecified; Z95.5 Presence of coronary angioplasty implant and graft; Z79.02 Long term (current) use of antithrombotics/antiplatelets; Z79.899 Other long term (current) drug therapy; Z79.82 Long term (current) use of aspirin; Z79.891 Long term (current) use of opiate analgesic
CPT/HCPCS: 36415; 71045; 80048; 80076; 82550; 82553; 83690; 83880; 84443; 85025; 85610; 85730; 86140; 93005; 93041; 94760; 96374; 96375; 96376; 99285; J2270; J2405

== ENCOUNTER → 2018-11-19 | Outpatient (REF) | payer OTHER ==
[~2018-11-19] MED LIST changes: +ASPI-125 PO; +ASPI81TA85 PO; +CLOP75TA2 PO; +LISI2.5T5 PO; +METO1TAB87 PO; +NITR0.4S14 SL
[2018-11-19 14:21] LABS: THYROID STIMULATING HORMONE 1.51 uIU/ML (0.358-3.740); TOTAL 25(OH) VITAMIN D 96.6 NG/ML (30.0-100.0)
== END ==
LOC: M SFHCPLAZ 11:32
PROVIDERS: ATTEND Family Medicine
DX: R53.82 Chronic fatigue, unspecified (principal); K14.6 Glossodynia

== ENCOUNTER 2018-11-27 04:38 | Emergency (ER) | payer OTHER ==
[~2018-11-27] VITALS: Ht 157.5 cm; Wt 44.5 kg
[~2018-11-27 04:38] MED LIST changes: -ASPI-125 PO; +ASPI-312 PO; -BACL10TA2; +BACL10TA2 PO; +HYDR-3715 PO; +LISI-1046 PO; -LISI2.5T5 PO; -LORA-243; +LORA-243 PO; +NICO21DI3 TD; -NICO21PAT TD; -NORC1TAB4 PO; +NORC1TAB7 PO; -NORCOTAB PO
[2018-11-27 04:50] LABS: BASO % 0.3 % (0.0-1.0); EOS # 0.2 10^3/uL (0.0-0.50); HEMATOCRIT 38.6 % (36.0-47.0); HEMOGLOBIN 13.2 g/dl (12.0-15.5); LYMPH # 2.3 10^3/uL (1.5-4.5); LYMPH % 39.4 % (24.0-44.0); MEAN CORPUSCULAR HEMOGLOBIN 33.5 pg (27.0-33.0); MEAN CORPUSCULAR HGB CONC 34.2 g/dl (32.0-36.5); MONO # 0.6 10^3/uL (0.0-0.8); MONO % 10.9 % (0.0-5.0); NEUTROPHILS # 2.7 10^3/uL (1.8-7.7); NEUTROPHILS % 46.1 % (36.0-66.0); PLATELET COUNT, AUTOMATED 396 10^3/uL (150-450); RED BLOOD COUNT 3.94 10^6/uL (4.00-5.40); WHITE BLOOD COUNT 5.8 10^3/uL (4.0-10.0)
[2018-11-27] MEDS ORDERED: VITA50005 PO (04:53)
[2018-11-27 05:00] LABS: INR 0.96; PROTHROMBIN TIME 12.9 SECONDS (12.1-14.4)
[2018-11-27] MEDS ORDERED: ASPIRIN 81 MG CHEW TABLET PO ONE (05:00)
[2018-11-27 05:01] LABS: PARTIAL THROMBOPLASTIN TIME 29.7 SECONDS (25.4-37.6)
[2018-11-27] MEDS ORDERED: NS 500 ML IV ONE (05:15)
[2018-11-27 05:20] LABS: BLOOD UREA NITROGEN 7 MG/DL (7-18); CALCIUM LEVEL 8.5 MG/DL (8.5-10.1); CARBON DIOXIDE LEVEL 21 MEQ/L (21-32); CHLORIDE LEVEL 102 MEQ/L (98-107); CPK CREATINE PHOSPHOKINASE 87 U/L (26-192); CREATININE FOR GFR 0.62 MG/DL (0.55-1.30); GLOMERULAR FILTRATION RATE > 60.0 (>51); GLUCOSE, FASTING 87 MG/DL (70-100); MB/CK RELATIVE INDEX 1.38 (< OR =4); POTASSIUM SERUM 3.9 MEQ/L (3.5-5.1); SODIUM LEVEL 134 MEQ/L (136-145); TROPONIN I < 0.02 NG/ML (< 0.10)
[2018-11-27 05:20] LABS: ABG BASE EXCESS -3.7 (-2.0-2.0); ABG HCO3 19.3 MEQ/L (22.0-26.0); ABG O2 SATURATION 97.3 % (95.0-99.0); ABG PARTIAL PRESSURE CO2 29.2 mmHg (35.0-45.0); ABG PARTIAL PRESSURE O2 95.5 mmHg (75.0-100.0); ABG STANDARD HCO3 21.4 MEQ/L (22.0-26.0); ABG TOTAL CO2 20.2 MEQ/L (22.0-29.0); ABG pH (ARTERIAL) 7.437 UNITS (7.350-7.450)
[2018-11-27 07:30] LABS: D-DIMER QUANT 295.82 ng/ml (<500)
--- NOTE | 2018-11-27 08:21 | REP ---
Clinical: Acute chest pain . Comparison: 10/21/2018 Technique: PA and lateral. Findings: The mediastinum and cardiac silhouette are normal. The lung lopez are clear and without acute consolidation, effusion, or pneumothorax. The skeletal structures are intact and normal. Impression: 1. No acute cardiopulmonary process. Electronically Signed by Jose Mace MD 11/27/2018 08:11 A
[2018-11-27 09:52] LABS: INFLUENZA A AMPLIFICATION NEGATIVE (NEGATIVE); INFLUENZA B AMPLIFICATION NEGATIVE (NEGATIVE)
[2018-11-27 12:11] LABS: CK-MB VALUE MASS < 1.0 NG/ML (<3.6); CPK CREATINE PHOSPHOKINASE 78 U/L (26-192); MB/CK RELATIVE INDEX 1.28 (< OR =4); TROPONIN I < 0.02 NG/ML (< 0.10)
[2018-11-27 12:27] VITALS: BP 110/77
--- NOTE | 2018-11-27 14:12 | ECGEPIP ---
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
--- NOTE | 2018-11-27 14:14 | ECGEPIP ---
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
== END 2018-11-27 12:44 | disposition home or self-care (01) ==
LOC: M ED 04:38
DX: R07.9 Chest pain, unspecified (principal); R05 Cough; I11.9 Hypertensive heart disease without heart failure; E78.5 Hyperlipidemia, unspecified; K21.9 Gastro-esophageal reflux disease without esophagitis; I25.10 Atherosclerotic heart disease of native coronary artery without angina pectoris; Z95.5 Presence of coronary angioplasty implant and graft; F17.200 Nicotine dependence, unspecified, uncomplicated; Z79.899 Other long term (current) drug therapy; Z79.02 Long term (current) use of antithrombotics/antiplatelets; Z79.82 Long term (current) use of aspirin

== ENCOUNTER → 2018-12-08 | Outpatient (CLI) | payer OTHER ==
[~2018-12-08] MED LIST changes: +VITA50005 PO
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
== END ==
LOC: M PAIN 09:45
PROVIDERS: ATTEND Nurse Practitioner Family
DX: M79.18 Myalgia, other site (principal); M54.2 Cervicalgia; M54.5 Low back pain; G89.29 Other chronic pain; I21.9 Acute myocardial infarction, unspecified; E78.00 Pure hypercholesterolemia, unspecified; M19.90 Unspecified osteoarthritis, unspecified site; K21.9 Gastro-esophageal reflux disease without esophagitis; F17.210 Nicotine dependence, cigarettes, uncomplicated; Z88.8 Allergy status to other drugs, medicaments and biological substances; Z79.01 Long term (current) use of anticoagulants; Z79.82 Long term (current) use of aspirin; Z79.899 Other long term (current) drug therapy

== ENCOUNTER → 2019-01-05 | Outpatient (CLI) | payer OTHER ==
[~2019-01-05] MED LIST changes: +BUPIVACAINE HCL 0.25% 10 ML VIAL As Ordered ONE; +BUPIVACAINE HCL 0.25% 30 ML VIAL As Ordered ONE; +TRIAMCINOLONE ACETONIDE SUSP 40 MG/ML VIAL (J3301) As Ordered ONE; +diazePAM 5 MG TAB As Ordered ONE; +oxyCODONE 5MG TAB As Ordered ONE
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
== END ==
LOC: M PAIN 12:45
PROVIDERS: ATTEND Anesthesiology
DX: M79.18 Myalgia, other site (principal); M54.6 Pain in thoracic spine; M54.5 Low back pain; E78.00 Pure hypercholesterolemia, unspecified; M19.90 Unspecified osteoarthritis, unspecified site; K21.9 Gastro-esophageal reflux disease without esophagitis; F17.210 Nicotine dependence, cigarettes, uncomplicated; Z79.01 Long term (current) use of anticoagulants; Z79.82 Long term (current) use of aspirin; Z79.899 Other long term (current) drug therapy; Z88.8 Allergy status to other drugs, medicaments and biological substances; Z86.79 Personal history of other diseases of the circulatory system
CPT/HCPCS: 20552; J3301

== ENCOUNTER → 2019-01-13 | Outpatient (CLI) | payer OTHER ==
[~2019-01-13] MED LIST changes: -BUPIVACAINE HCL 0.25% 10 ML VIAL As Ordered ONE; -BUPIVACAINE HCL 0.25% 30 ML VIAL As Ordered ONE; -TRIAMCINOLONE ACETONIDE SUSP 40 MG/ML VIAL (J3301) As Ordered ONE; -diazePAM 5 MG TAB As Ordered ONE; -oxyCODONE 5MG TAB As Ordered ONE
--- NOTE | 2019-01-13 16:13 | REP ---
Clinical: Lung screening. History smoking. Comparison: None Technique: Axial low-dose noncontrast images from the thoracic inlet to the upper abdomen using lung screening technique. Findings: The lung lopez are well-aerated. No consolidation, significant nodule or mass lesion is appreciated. No pleural effusion/reaction or pneumothorax. Tracheobronchial tree is patent. Mediastinum demonstrates atherosclerotic changes of the coronary arteries without cardiomegaly. Impression: Lung-RADS category I. No nodule or suspicious abnormality. Electronically Signed by Jose Mace MD 01/13/2019 01:37 P
== END ==
LOC: M RAD 13:10
PROVIDERS: ATTEND Family Medicine
DX: Z12.2 Encounter for screening for malignant neoplasm of respiratory organs (principal); Z87.891 Personal history of nicotine dependence

== ENCOUNTER → 2019-02-10 | Outpatient (CLI) | payer OTHER ==
[~2019-02-10] MED LIST changes: -EZET10TA PO; +EZET10TA21 PO
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
== END ==
LOC: M PAIN 14:45
PROVIDERS: ATTEND Nurse Practitioner Family
DX: M54.2 Cervicalgia (principal); M79.12 Myalgia of auxiliary muscles, head and neck; I25.2 Old myocardial infarction; E78.00 Pure hypercholesterolemia, unspecified; M19.90 Unspecified osteoarthritis, unspecified site; K21.9 Gastro-esophageal reflux disease without esophagitis; F17.210 Nicotine dependence, cigarettes, uncomplicated; H90.5 Unspecified sensorineural hearing loss; Z85.828 Personal history of other malignant neoplasm of skin; Z98.41 Cataract extraction status, right eye; Z98.42 Cataract extraction status, left eye; Z79.02 Long term (current) use of antithrombotics/antiplatelets; Z79.82 Long term (current) use of aspirin; Z79.891 Long term (current) use of opiate analgesic; Z79.899 Other long term (current) drug therapy; Z88.8 Allergy status to other drugs, medicaments and biological substances

== ENCOUNTER 2019-03-18 07:03 | Emergency (ER) | payer OTHER ==
[~2019-03-18] VITALS: Ht 152.4 cm; Wt 44.5 kg
[~2019-03-18 07:03] MED LIST changes: -DULO1CAP; +DULO1CAP4
--- NOTE | 2019-03-18 08:27 | REP ---
Left knee six views : There is no fracture or dislocation. Mineralization and joint spaces are normal. There are no calcifications or foreign bodies. Impression: Negative left knee . Electronically Signed by Speedy Arthur MD 03/18/2019 08:19 A
[2019-03-18] MEDS ORDERED: NORCO, ANEXSIA 5/325MG TABLET (HYDROcodone/ACETAMINOPHEN) PO ONE (08:45)
[2019-03-18] MEDS ORDERED: NORC1TAB7 PO (08:47)
[2019-03-18 08:52] VITALS: BP 135/75
== END 2019-03-18 08:57 | disposition home or self-care (01) ==
LOC: M ED 07:03
DX: S80.02XA Contusion of left knee, initial encounter (principal); W19.XXXA Unspecified fall, initial encounter; Y92.410 Unspecified street and highway as the place of occurrence of the external cause; Y93.9 Activity, unspecified; Y99.9 Unspecified external cause status; I25.2 Old myocardial infarction; Z95.1 Presence of aortocoronary bypass graft; Z95.5 Presence of coronary angioplasty implant and graft; Z72.0 Tobacco use; Z79.82 Long term (current) use of aspirin; Z79.899 Other long term (current) drug therapy

== ENCOUNTER 2019-03-28 14:05 | Outpatient (RCR) | payer OTHER | END 2019-04-23 | LOC: M PT 14:05 | PROVIDERS: ATTEND Physician Assistant | DX: Z47.89 Encounter for other orthopedic aftercare (principal); M51.36 Other intervertebral disc degeneration, lumbar region ==

== ENCOUNTER → 2019-04-08 | Outpatient (CLI) | payer OTHER ==
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
== END ==
LOC: M PAIN 11:45
PROVIDERS: ATTEND Nurse Practitioner Family
DX: M54.2 Cervicalgia (principal); M79.12 Myalgia of auxiliary muscles, head and neck; E78.00 Pure hypercholesterolemia, unspecified; M19.90 Unspecified osteoarthritis, unspecified site; K21.9 Gastro-esophageal reflux disease without esophagitis; F17.210 Nicotine dependence, cigarettes, uncomplicated; Z88.8 Allergy status to other drugs, medicaments and biological substances; Z79.01 Long term (current) use of anticoagulants; Z79.82 Long term (current) use of aspirin; Z79.899 Other long term (current) drug therapy

== ENCOUNTER → 2019-05-27 | Outpatient (CLI) | payer MEDICARE, MEDICAID ==
[2019-05-27 13:34] LABS: CHOLESTEROL RISK RATIO 3.557 (<5)
== END ==
LOC: M LAB 11:30
PROVIDERS: ATTEND Internal Medicine Cardiovascular Disease
DX: E78.5 Hyperlipidemia, unspecified (principal)

== ENCOUNTER → 2019-05-27 | Outpatient (CLI) | payer MEDICARE, MEDICAID ==
--- NOTE | 2019-05-27 14:39 | REP ---
Ultrasonography of the left wrist for a palpable lump: There is a palpable lump along the palmar side of the left wrist at its radial aspect. Ultrasonography of the palpable lump identifies a complex cyst measuring 6.3 x 8.1 x 9.1 mm. No solid nodule is identified. Electronically Signed by Speedy Arthur MD 05/27/2019 02:30 P
== END ==
LOC: M RAD 10:36
PROVIDERS: ATTEND Family Medicine
DX: M71.332 Other bursal cyst, left wrist (principal); E78.5 Hyperlipidemia, unspecified

== ENCOUNTER → 2019-06-08 | Outpatient (CLI) | payer MEDICARE, MEDICAID ==
[~2019-06-08] MED LIST changes: -OMEP40CA2 PO; +OMEP40CA97 PO
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
== END ==
LOC: M PAIN 11:45
PROVIDERS: ATTEND Family Medicine
DX: M79.18 Myalgia, other site (principal); E78.00 Pure hypercholesterolemia, unspecified; M19.90 Unspecified osteoarthritis, unspecified site; K21.9 Gastro-esophageal reflux disease without esophagitis; F17.210 Nicotine dependence, cigarettes, uncomplicated; Z88.8 Allergy status to other drugs, medicaments and biological substances; Z79.01 Long term (current) use of anticoagulants; Z79.82 Long term (current) use of aspirin; Z79.899 Other long term (current) drug therapy

== ENCOUNTER → 2019-08-10 | Outpatient (CLI) | payer MEDICARE, MEDICAID ==
[~2019-08-10] MED LIST changes: +BUPIVACAINE HCL 0.25% 10 ML VIAL As Ordered ONE; +BUPIVACAINE HCL 0.25% 30 ML VIAL As Ordered ONE; +TRIAMCINOLONE ACETONIDE SUSP 40 MG/ML VIAL (J3301) As Ordered ONE; -VALA1TAB2; +VALA1TAB64; +diazePAM 5 MG TAB As Ordered ONE; +oxyCODONE 5MG TAB As Ordered ONE
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
== END ==
LOC: M PAIN 13:45
PROVIDERS: ATTEND Anesthesiology
DX: M79.18 Myalgia, other site (principal); M53.3 Sacrococcygeal disorders, not elsewhere classified; M46.1 Sacroiliitis, not elsewhere classified; M54.5 Low back pain; G89.29 Other chronic pain; E78.00 Pure hypercholesterolemia, unspecified; K21.9 Gastro-esophageal reflux disease without esophagitis; F17.210 Nicotine dependence, cigarettes, uncomplicated; Z88.8 Allergy status to other drugs, medicaments and biological substances; Z79.01 Long term (current) use of anticoagulants; Z79.82 Long term (current) use of aspirin; Z79.899 Other long term (current) drug therapy
CPT/HCPCS: 20552; J3301

== ENCOUNTER → 2019-08-11 | Outpatient (CLI) | payer MEDICARE, MEDICAID ==
[~2019-08-11] MED LIST changes: -BUPIVACAINE HCL 0.25% 10 ML VIAL As Ordered ONE; -BUPIVACAINE HCL 0.25% 30 ML VIAL As Ordered ONE; +CONRAY-43 43% 50ML VIAL (Q9960) As Ordered ONE; +LIDOCAINE 1% MDV 20ML VIAL As Ordered ONE; -diazePAM 5 MG TAB As Ordered ONE; -oxyCODONE 5MG TAB As Ordered ONE
--- NOTE | 2019-08-11 19:09 | REP ---
Reason For Exam/Comment: Incomplete rotator cuff tear of the right shoulder Procedure: Right shoulder arthrocentesis The procedure was performed by EDITA Mackay, under the direct supervision of Dr. Handley. The benefits and risks including but not limited to pain, infection, bleeding and anaphylaxis were explained to the patient and informed consent was obtained both verbally and written. Directly prior to the start of the procedure, a formal timeout was completed in the procedure room. The right glenohumeral joint space was localized using fluoroscopic guidance. The skin was prepped and draped in the usual sterile fashion. 5 mL of 1% lidocaine 10 mg/ml was used as a local anesthetic. Using fluoroscopic guidance a 22-gauge spinal needle was inserted and advanced to the right glenohumeral joint space . 1 mL of Conray 43 was injected to verify needle placement. A 6 mL solution containing a 5 mL 1% lidocaine 10 mg/ml and 1 ml of Kenalog 40 mg/ml was injected into the joint. The needle was removed and hemostasis was achieved. The patient tolerated the procedure well and there were no immediate complications. 0.3 minutes of fluoroscopy time was utilized for this procedure. Some fluoroscopic images are performed with last image hold technology. These images require no additional radiation. Reviewed by EDITA Nuñez 08/11/2019 03:47 P Electronically Signed by Miguel Angel Handley MD 08/11/2019 05:04 P
== END ==
LOC: M RADPRO 10:42
PROVIDERS: ATTEND Orthopaedic Surgery
DX: M75.111 Incomplete rotator cuff tear or rupture of right shoulder, not specified as traumatic (principal)
CPT/HCPCS: 20610; 77002; J3301; Q9960

== ENCOUNTER → 2019-08-18 | Outpatient (CLI) | payer MEDICARE, MEDICAID ==
[~2019-08-18] MED LIST changes: -CONRAY-43 43% 50ML VIAL (Q9960) As Ordered ONE; -LIDOCAINE 1% MDV 20ML VIAL As Ordered ONE; -TRIAMCINOLONE ACETONIDE SUSP 40 MG/ML VIAL (J3301) As Ordered ONE
--- NOTE | 2019-08-18 16:06 | REP ---
MRI PELVIS WITHOUT CONTRAST: MRI pelvis was performed utilizing sagittal, axial and coronal images. No IV contrast was administered. There is relatively mild sacroiliitis bilaterally. There is very mild subchondral marrow edema in the bilateral iliac bones and sacrum superiorly, bilaterally. The edema is slightly greater than the iliac side of the joint bilaterally. No abnormal marrow signal is seen along the more inferior aspect of the sacroiliac joints. There are degenerative changes at the L4-5 disc space incidentally noted with mild to moderate disc space narrowing, with associated loss of water signal and disc degeneration. There is mild diffuse disc bulging at that level. Visualized adjacent soft tissue structures appear grossly unremarkable. IMPRESSION: Mild bilateral sacroiliitis of the superior sacroiliac joints. Findings are relatively symmetrical with greater degree of subchondral marrow edema on the iliac side of the joints bilaterally. Electronically Signed by Speedy Smith MD 08/18/2019 04:35 P
== END ==
LOC: M RAD 13:16
PROVIDERS: ATTEND Anesthesiology
DX: M53.3 Sacrococcygeal disorders, not elsewhere classified (principal); M46.1 Sacroiliitis, not elsewhere classified

== ENCOUNTER → 2019-08-26 | Outpatient (CLI) | payer MEDICARE, MEDICAID ==
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
== END ==
LOC: M PAIN 13:45
PROVIDERS: ATTEND Family Medicine
DX: M79.18 Myalgia, other site (principal)

== ENCOUNTER 2019-09-16 00:40 | Emergency (ER) | payer MEDICARE, MEDICAID ==
[~2019-09-16] VITALS: Ht 165.1 cm; Wt 44.6 kg
[2019-09-16] MEDS ORDERED: REPA140I2 (01:13)
[2019-09-16] MEDS ORDERED: VITA50005 (01:13)
[2019-09-16 01:44] LABS: BASO % 0.5 % (0.0-1.0); EOS # 0.2 10^3/uL (0.0-0.5); EOS % 2.7 % (0.0-3.0); HEMATOCRIT 39.4 % (36.0-47.0); HEMOGLOBIN 12.8 g/dl (12.0-15.5); LYMPH # 1.8 10^3/uL (1.5-5.0); LYMPH % 32.1 % (24.0-44.0); MEAN CORPUSCULAR HEMOGLOBIN 31.1 pg (27.0-33.0); MEAN CORPUSCULAR HGB CONC 32.5 g/dl (32.0-36.5); MEAN CORPUSCULAR VOLUME 95.6 fl (80.0-96.0); MONO # 0.5 10^3/uL (0.0-0.8); MONO % 8.5 % (0.0-5.0); NEUTROPHILS # 3.1 10^3/uL (1.5-8.5); PLATELET COUNT, AUTOMATED 408 10^3/uL (150-450); RED BLOOD COUNT 4.12 10^6/uL (4.00-5.40); WHITE BLOOD COUNT 5.5 10^3/uL (4.0-10.0)
[2019-09-16 01:55] LABS: INR 0.93; PARTIAL THROMBOPLASTIN TIME 28.2 SECONDS (25.0-38.4); PROTHROMBIN TIME 12.1 SECONDS (11.8-14.0)
[2019-09-16] MEDS ORDERED: ONDANSETRON 4MG/2ML VIAL (J2405) IV ONE (02:00)
[2019-09-16] MEDS ORDERED: PANTOPRAZOLE 40MG INJ (PROTONIX) (C9113) IV ONE (02:00)
[2019-09-16 02:10] LABS: BLOOD UREA NITROGEN 5 MG/DL (7-18); CALCIUM LEVEL 8.4 MG/DL (8.5-10.1); CARBON DIOXIDE LEVEL 29 MEQ/L (21-32); CHLORIDE LEVEL 103 MEQ/L (98-107); CK-MB VALUE MASS < 1.0 NG/ML (<3.6); CPK CREATINE PHOSPHOKINASE 62 U/L (26-192); CREATININE FOR GFR 0.65 MG/DL (0.55-1.30); FREE T4 0.95 NG/DL (0.76-1.46); GLOMERULAR FILTRATION RATE > 60.0 (>51); GLUCOSE, FASTING 91 MG/DL (70-100); MB/CK RELATIVE INDEX 1.61 (< OR =4); POTASSIUM SERUM 3.6 MEQ/L (3.5-5.1); SODIUM LEVEL 135 MEQ/L (136-145); TROPONIN I < 0.02 NG/ML (< 0.10)
[2019-09-16] MEDS: GASTROGRAFIN SOLUTION 30ML PO SCH ×2 (02:44→03:29)
[2019-09-16] MEDS ORDERED: ISOVUE-370 76% 100ML VIAL (Q9967) As Ordered ONE (03:39)
[2019-09-16 03:40] LABS: BASO % 0.5 % (0.0-1.0); EOS # 0.2 10^3/uL (0.0-0.5); EOS % 2.7 % (0.0-3.0); HEMATOCRIT 38.4 % (36.0-47.0); HEMOGLOBIN 12.3 g/dl (12.0-15.5); LYMPH # 2.1 10^3/uL (1.5-5.0); LYMPH % 35.3 % (24.0-44.0); MEAN CORPUSCULAR HEMOGLOBIN 31.3 pg (27.0-33.0); MEAN CORPUSCULAR VOLUME 97.7 fl (80.0-96.0); MONO # 0.6 10^3/uL (0.0-0.8); MONO % 10.5 % (0.0-5.0); PLATELET COUNT, AUTOMATED 397 10^3/uL (150-450); RED BLOOD COUNT 3.93 10^6/uL (4.00-5.40); WHITE BLOOD COUNT 5.9 10^3/uL (4.0-10.0)
--- NOTE | 2019-09-16 04:46 | REPVR ---
PROCEDURE INFORMATION: Exam: CT Abdomen And Pelvis With Contrast Exam date and time: 09/16/2019 1:46 AM Age: 53 years old Clinical indication: Abdominal pain; Localized; Right lower quadrant (rlq); Additional info: Rlq pain, n/v/d TECHNIQUE: Imaging protocol: Computed tomography of the abdomen and pelvis with intravenous contrast. Radiation optimization: All CT scans at this facility use at least one of these dose optimization techniques: automated exposure control; mA and/or kV adjustment per patient size (includes targeted exams where dose is matched to clinical indication); or iterative reconstruction. Contrast material: ISO; Contrast volume: 100 ml; Contrast route: AC; Other contrast: Route: Oral, Material: ggraphin, Volume: 600; COMPARISON: CT ABD PELVIS WITH CONTRAST 07/31/2015 2:04 PM FINDINGS: Liver: Normal. No mass. Gallbladder and bile ducts: The CBD measures up to 9 mm with no distal calculus or mass. The gallbladder is somewhat contracted with no stones. Pancreas: Normal. No ductal dilation. Spleen: Normal. No splenomegaly. Adrenals: Normal. No mass. Kidneys and ureters: Normal. No hydronephrosis. Stomach and bowel: There is mild sigmoid diverticulosis with mild wall thickening of the mid and distal sigmoid which is mildly increased since the prior study with no significant surrounding induration and may reflect mild diverticulitis, however, there is involvement of the proximal rectum which would be unusual in diverticulitis and may reflect segmental distal colitis. Appendix: A normal appendix is seen. Intraperitoneal space: Unremarkable. No free air. No significant fluid collection. Vasculature: There is mild calcification of the abdominal aorta with extension into the iliac arteries. Lymph nodes: Unremarkable. No enlarged lymph nodes. Bladder: Unremarkable as visualized. Reproductive: Unremarkable as visualized. Bones/joints: Unremarkable. No acute fracture. Soft tissues: Unremarkable. IMPRESSION: 1. Sigmoid diverticulosis with mild wall thickening of the mid and distal sigmoid, slightly increased since 07/31/2015 which may reflect minimal diverticulitis, however, there is some involvement of the proximal rectum and may reflect mild nonspecific distal segmental colitis. 2. Dilated CBD measuring 9 mm with no distal mass or calculus and is similar to slightly increased since the prior study. 3. Otherwise negative CT abdomen/pelvis. A normal appendix is seen. Electronically signed by: Diego Courtney On 09/16/2019 04:45:59 AM
[2019-09-16] MEDS ORDERED: ONDA4TAB6 PO (05:53)
[2019-09-16] MEDS ORDERED: PROT1TAB2 PO (05:53)
[2019-09-16 06:00] VITALS: BP 100/55
--- NOTE | 2019-09-16 07:58 | REP ---
The portable chest, 01:16 a.m., single AP view with the patient sitting: Comparison is the PA and lateral chest of 11/27/2018. The lung lopez are clear. The cardiac size is normal. The michelle, mediastinum, and skeletal structures are unremarkable. Impression: Negative portable chest. There is no interval change. Electronically Signed by Speedy Arthur MD 09/16/2019 07:49 A
--- NOTE | 2019-09-16 20:25 | ECGEPIP ---
[facility] - ED Test Date: 2019-09-16 Pat Name: OMAR REYES Department: Room: - Gender: Female It Architecture Consultant: LATRELL : 1965 Requested By: CARLOS Orellana Order Number: [id number] Reading MD: Nicky Hawley Measurements Intervals [place] Rate: 87 P: 74 WI: 124 QRS: 48 QRSD: 91 T: 2 QT: 373 QTc: 451 Interpretive Statements SINUS RHYTHM WITH OCCASIONAL VENTRICULAR PREMATURE COMPLEXES POSSIBLE LEFT ATRIAL ENLARGEMENT NONSPECIFIC T-WAVE ABNORMALITY SIMILAR 11/27/18 Electronically Signed on 09-16-2019 20:25:05 EST by Nicky Hawley
--- NOTE | 2019-09-17 09:45 | ED PDOC ---
Post-Departure Follow-Up dr horta faxed formal report of ct abd/p for fu Misty Hargrove MD Sep 17, 2019 09:45
== END 2019-09-16 06:06 | disposition home or self-care (01) ==
LOC: M ED 00:40
DX: R10.9 Unspecified abdominal pain (principal); I25.10 Atherosclerotic heart disease of native coronary artery without angina pectoris; I25.2 Old myocardial infarction; Z95.5 Presence of coronary angioplasty implant and graft; F17.200 Nicotine dependence, unspecified, uncomplicated; Z82.49 Family history of ischemic heart disease and other diseases of the circulatory system; K57.30 Diverticulosis of large intestine without perforation or abscess without bleeding; Z79.82 Long term (current) use of aspirin; Z79.899 Other long term (current) drug therapy; Z88.8 Allergy status to other drugs, medicaments and biological substances
CPT/HCPCS: 71045; 74177; 80048; 82550; 82553; 84439; 84443; 84484; 85025; 85610; 85730; 93005; 93041; 94760; 96374; 96375; 99285; C9113; J2405; Q9963; Q9967

== ENCOUNTER → 2019-09-21 | Outpatient (CLI) | payer MEDICARE, MEDICAID ==
[~2019-09-21] MED LIST changes: +BUPIVACAINE HCL 0.25% 30 ML VIAL As Ordered ONE; +ONDA4TAB6 PO; +PROT1TAB2 PO; +REPA140I2; +TRIAMCINOLONE ACETONIDE SUSP 40 MG/ML VIAL (J3301) As Ordered ONE; +VALA1TAB5; -VALA1TAB64; +VITA50005; +diazePAM 5 MG TAB As Ordered ONE; +oxyCODONE 5MG TAB As Ordered ONE
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
== END ==
LOC: M PAIN 13:45
PROVIDERS: ATTEND Anesthesiology
DX: M79.18 Myalgia, other site (principal)
CPT/HCPCS: 20552; J3301

== ENCOUNTER → 2019-10-07 | Outpatient (CLI) | payer MEDICARE, MEDICAID ==
[~2019-10-07] MED LIST changes: -BUPIVACAINE HCL 0.25% 30 ML VIAL As Ordered ONE; -TRIAMCINOLONE ACETONIDE SUSP 40 MG/ML VIAL (J3301) As Ordered ONE; -diazePAM 5 MG TAB As Ordered ONE; -oxyCODONE 5MG TAB As Ordered ONE
--- NOTE | 2019-10-07 15:07 | REPMRS ---
Patient History The patient states she had a clinical breast exam in 2019. Patient has history of other cancer at age 52. No known family history of cancer. Benign radio exam breast specimen of the left breast, May 23, 2015. Benign stereotatic loc for ea lesion of the left breast, May 23, 2015. Took estrogen for 1 year. Took progesterone for 1 year. Digital Woman Screen Mammo: October 07, 2019 - Exam #: [id number] Bilateral CC and MLO view(s) were taken. Technologist: Masha Zacarias, Technologist Prior study comparison: August 26, 2018, bilateral digital woman screen mammo performed at [facility]. August 12, 2017, digital woman screen mammo performed at [facility]. April 13, 2015, digital woman screen mammo performed at [facility]. FINDINGS: The breast tissue is heterogeneously dense. This may lower the sensitivity of mammography. There is a needle biopsy marker clip projecting in the upper outer quadrant on the left. Vascular calcifications noted bilaterally. There is a moderate amount of heterogeneously dense fibroglandular tissue which is fairly symmetric. There is no interval development of dominant mass, architectural distortion, or grouped microcalcification typical of malignancy. There has been no change in the appearance of the mammogram from the prior studies. 3-D tomosynthesis shows no additional findings. Assessment: BI-RADS/ACR category 2 mammogram. Benign Findings. Recommendation Routine screening mammogram of both breasts in 1 year (for women over age 40). This patient's Lifetime Breast Cancer RIsk is estimated at 7.7 %. This mammogram was interpreted with the aid of an FDA-approved computer-aided dectection system. Electronically Signed By: Lester Handley MD 10/07/19 1988
== END ==
LOC: M WHC 14:04
PROVIDERS: ATTEND Nurse Practitioner Family
DX: Z12.31 Encounter for screening mammogram for malignant neoplasm of breast (principal); Z86.018 Personal history of other benign neoplasm; Z92.23 Personal history of estrogen therapy; Z92.29 Personal history of other drug therapy

== ENCOUNTER → 2019-10-19 | Outpatient (CLI) | payer MEDICARE, MEDICAID ==
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
== END ==
LOC: M PAIN 14:15
PROVIDERS: ATTEND Family Medicine
DX: M46.1 Sacroiliitis, not elsewhere classified (principal); I25.2 Old myocardial infarction; E78.00 Pure hypercholesterolemia, unspecified; K21.9 Gastro-esophageal reflux disease without esophagitis; Z95.5 Presence of coronary angioplasty implant and graft; Z79.891 Long term (current) use of opiate analgesic; Z79.82 Long term (current) use of aspirin; Z79.899 Other long term (current) drug therapy; F17.210 Nicotine dependence, cigarettes, uncomplicated; Z88.8 Allergy status to other drugs, medicaments and biological substances; M50.30 Other cervical disc degeneration, unspecified cervical region; M51.36 Other intervertebral disc degeneration, lumbar region

== ENCOUNTER 2019-11-10 13:14 | Emergency (ER) | payer OTHER, MEDICAID ==
[~2019-11-10] VITALS: Ht 152.4 cm; Wt 44.0 kg
[2019-11-10 13:54] LABS: BASO # 0.1 10^3/uL (0.0-0.2); BASO % 0.9 % (0.0-1.0); EOS # 0.2 10^3/uL (0.0-0.5); EOS % 3.1 % (0.0-3.0); HEMOGLOBIN 13.1 g/dl (12.0-15.5); LYMPH % 25.9 % (24.0-44.0); MEAN CORPUSCULAR HEMOGLOBIN 31.2 pg (27.0-33.0); MEAN CORPUSCULAR HGB CONC 32.8 g/dl (32.0-36.5); MEAN CORPUSCULAR VOLUME 95.2 fl (80.0-96.0); MONO # 0.9 10^3/uL (0.0-0.8); MONO % 11.6 % (0.0-5.0); NEUTROPHILS # 4.5 10^3/uL (1.5-8.5); NEUTROPHILS % 58.2 % (36.0-66.0); PLATELET COUNT, AUTOMATED 358 10^3/uL (150-450); WHITE BLOOD COUNT 7.7 10^3/uL (4.0-10.0)
[2019-11-10 14:20] LABS: ALBUMIN 3.5 GM/DL (3.2-5.2); ALT/SGPT 21 U/L (12-78); BILIRUBIN,DIRECT < 0.1 MG/DL (0.0-0.2); BILIRUBIN,TOTAL 0.2 MG/DL (0.2-1.0); THYROXINE (T4) 8.5 UG/DL (4.5-12.0); TOTAL PROTEIN 7.5 GM/DL (6.4-8.2)
--- NOTE | 2019-11-10 14:26 | REP ---
PORTABLE CHEST X-RAY: SINGLE VIEW. HISTORY: Dyspnea and cough. COMPARISON CHEST X-RAY: September 16, 2019. FINDINGS: The lungs are symmetrically aerated and free of infiltrate. Pleural angles are sharp. Heart is not enlarged. Coronary artery stent material is visible along the right heart border. There is an old healed fracture of the clavicle on the right. Pulmonary vasculature is not increased. IMPRESSION: No active disease. Electronically Signed by Miguel Angel Handley MD 11/10/2019 02:56 P
[2019-11-10] MEDS ORDERED: VOLT1GEL15 TD (14:44)
[2019-11-10] MEDS ORDERED: [UNRECOGNIZED DRUG - CODE] MT (14:44)
[2019-11-10] MEDS ORDERED: AUGM0.0534 (14:44)
[2019-11-10 15:31] LABS: CK-MB VALUE MASS < 1.0 NG/ML (<3.6); CPK CREATINE PHOSPHOKINASE 48 U/L (26-192); MB/CK RELATIVE INDEX 2.08 (< OR =4); TROPONIN I < 0.02 NG/ML (< 0.10)
[2019-11-10] MEDS ORDERED: AUGMENTIN 875 MG TAB PO ONE (16:45)
[2019-11-10] MEDS ORDERED: BENZONATATE 100 MG CAP PO ONE (16:45)
[2019-11-10] MEDS ORDERED: AUGM875T28 PO (16:46)
[2019-11-10] MEDS ORDERED: BENZ200C70 PO (16:46)
[2019-11-10 16:51] VITALS: BP 125/82
--- NOTE | 2019-11-11 18:37 | ECGEPIP ---
[facility] - ED Test Date: 2019-11-10 Pat Name: OMAR REYES Department: Room: - Gender: Female Chief Accountant: CRISTINA : 1965 Requested By: Nicky Hawley Order Number: [id number] Reading MD: Nicky Hawley Measurements Intervals [place] Rate: 81 P: 68 WV: 125 QRS: 62 QRSD: 92 T: -7 QT: 355 QTc: 414 Interpretive Statements SINUS RHYTHM NONSPECIFIC ST & T-WAVE ABNORMALITY SIMILAR 09/16/19 Electronically Signed on 11-11-2019 18:37:34 EDT by Nicky Hawley
== END 2019-11-10 17:00 | disposition home or self-care (01) ==
LOC: M ED 13:14
DX: J01.90 Acute sinusitis, unspecified (principal); I25.10 Atherosclerotic heart disease of native coronary artery without angina pectoris; I25.2 Old myocardial infarction; I10 Essential (primary) hypertension; Z95.5 Presence of coronary angioplasty implant and graft; F17.200 Nicotine dependence, unspecified, uncomplicated; Z82.49 Family history of ischemic heart disease and other diseases of the circulatory system; Z79.82 Long term (current) use of aspirin; Z79.899 Other long term (current) drug therapy; Z88.8 Allergy status to other drugs, medicaments and biological substances

== ENCOUNTER → 2019-11-11 | Outpatient (CLI) | payer MEDICARE, MEDICAID ==
[~2019-11-11] MED LIST changes: +AUGM0.0534; +AUGM875T28 PO; +BENZ200C70 PO; +CONRAY-43 43% 50ML VIAL (Q9960) As Ordered ONE; +LIDOCAINE 1% MDV 20ML VIAL As Ordered ONE; +TRIAMCINOLONE ACETONIDE SUSP 40 MG/ML VIAL (J3301) As Ordered ONE; +VOLT1GEL15 TD; +[UNRECOGNIZED DRUG - CODE] MT
--- NOTE | 2019-11-11 15:35 | REP ---
RIGHT SHOULDER INJECTION The procedure was performed under the direct supervision of Dr. Smith. The benefits and risks including but not limited to pain infection bleeding and anaphylaxis were explained to the patient and informed consent was obtained. The right glenohumeral joint space was localized using fluoroscopic guidance. The skin was prepped and draped in a sterile fashion. 1% lidocaine was used as a local anesthetic. Using fluoroscopic guidance a 22-gauge needle was inserted and advanced into the joint. 0.5 ml of Conray 43 was injected to verify placement. 6 ml of a solution containing 5 ml of 1% lidocaine and 1 ml of Kenalog 40 mg injected. The needle was then removed. The patient tolerated the procedure well and there were no immediate complications. Less than 6 seconds of fluoroscopy time was utilized for this procedure. Electronically Signed by EDITA Wright 11/11/2019 03:13 P Electronically Signed by Speedy Smith MD 11/11/2019 03:26 P
== END ==
LOC: M RADPRO 14:30
PROVIDERS: ATTEND Orthopaedic Surgery
DX: M75.111 Incomplete rotator cuff tear or rupture of right shoulder, not specified as traumatic (principal)
CPT/HCPCS: 20610; 77002; J3301; Q9960

== ENCOUNTER → 2019-11-21 | Outpatient (REF) | payer MEDICARE, MEDICAID, OTHER ==
[~2019-11-21] MED LIST changes: -CONRAY-43 43% 50ML VIAL (Q9960) As Ordered ONE; -LIDOCAINE 1% MDV 20ML VIAL As Ordered ONE; -TRIAMCINOLONE ACETONIDE SUSP 40 MG/ML VIAL (J3301) As Ordered ONE
[2019-11-21 19:02] LABS: CHLAMYDIA DNA AMPLIFICATION NEGATIVE (NEGATIVE); GC DNA AMPLIFICATION NEGATIVE (NEGATIVE)
== END ==
LOC: M SFHCPLAZ 16:49
PROVIDERS: ATTEND Student in an Organized Health Care Education/Training Program
DX: R30.0 Dysuria (principal)

== ENCOUNTER → 2020-01-10 | Outpatient (CLI) | payer OTHER ==
[~2020-01-10] MED LIST changes: -LISI-1046 PO; +LISI2.5T2 PO
== END ==
LOC: M LABSMTC 11:30
PROVIDERS: ATTEND Anesthesiology
DX: Z03.818 Encounter for observation for suspected exposure to other biological agents ruled out (principal); Z11.59 Encounter for screening for other viral diseases

== ENCOUNTER → 2020-01-12 | Outpatient (CLI) | payer MEDICARE, OTHER ==
[~2020-01-12] MED LIST changes: +BUPIVACAINE HCL 0.25% 30ML VIAL As Ordered ONE; +ISOVUE-M 300 61% 15ML VIAL As Ordered ONE; +LIDOCAINE 1% SDV 30ML VIAL As Ordered ONE; +dexameTHASONE 10MG/1ML VIAL PRES.FREE (J1100 PER 1MG) As Ordered ONE; +diazePAM 5 MG TAB As Ordered ONE; +oxyCODONE 5MG TAB As Ordered ONE
--- NOTE | 2020-01-12 12:48 | REP ---
C-ARM VIEWS RIGHT SACROILIAC JOINT: CLINICAL HISTORY: Pain. Two C-arm views of the right sacroiliac joint performed during sacroiliac joint injection performed by Dr. Walker. A needle is seen overlying the right sacroiliac joint. 17 seconds of fluoroscopy time utilized. Electronically Signed by Speedy Smith MD 01/12/2020 02:57 P
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
== END ==
LOC: M PAIN 11:15
PROVIDERS: ATTEND Anesthesiology
DX: M46.1 Sacroiliitis, not elsewhere classified (principal); M53.3 Sacrococcygeal disorders, not elsewhere classified
CPT/HCPCS: G0260; J1100; Q9967

== ENCOUNTER → 2020-01-31 | Outpatient (CLI) | payer OTHER, MEDICAID, MEDICARE ==
[~2020-01-31] MED LIST changes: -BUPIVACAINE HCL 0.25% 30ML VIAL As Ordered ONE; -ISOVUE-M 300 61% 15ML VIAL As Ordered ONE; -LIDOCAINE 1% SDV 30ML VIAL As Ordered ONE; -dexameTHASONE 10MG/1ML VIAL PRES.FREE (J1100 PER 1MG) As Ordered ONE; -diazePAM 5 MG TAB As Ordered ONE; -oxyCODONE 5MG TAB As Ordered ONE
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
== END ==
LOC: M PAIN 13:15
PROVIDERS: ATTEND Family Medicine
DX: M46.1 Sacroiliitis, not elsewhere classified (principal)

== ENCOUNTER → 2020-02-29 | Outpatient (CLI) | payer OTHER, MEDICAID, MEDICARE ==
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
== END ==
LOC: M PAIN 13:15
PROVIDERS: ATTEND Family Medicine
DX: M46.1 Sacroiliitis, not elsewhere classified (principal)

== ENCOUNTER → 2020-04-10 | Outpatient (REF) | payer OTHER, MEDICAID ==
[~2020-04-10] MED LIST changes: -ASPI81TA85 PO; +ASPI81TA86 PO; +HYDR-3713 PO; +OMEP-221 PO
[2020-05-29 11:24] LABS: BASO # 0.1 10^3/uL (0.0-0.2); BASO % 0.7 % (0.0-1.0); EOS # 0.1 10^3/uL (0.0-0.5); EOS % 1.2 % (0.0-3.0); HEMATOCRIT 38.9 % (36.0-47.0); LYMPH # 2.9 10^3/uL (1.5-5.0); LYMPH % 42.6 % (24.0-44.0); MEAN CORPUSCULAR HEMOGLOBIN 31.3 pg (27.0-33.0); MEAN CORPUSCULAR HGB CONC 33.4 g/dl (32.0-36.5); MEAN CORPUSCULAR VOLUME 93.7 fl (80.0-96.0); MONO # 0.8 10^3/uL (0.0-0.8); MONO % 11.5 % (0.0-5.0); NEUTROPHILS % 43.9 % (36.0-66.0); PLATELET COUNT, AUTOMATED 497 10^3/uL (150-450); RED BLOOD COUNT 4.15 10^6/uL (4.00-5.40); WHITE BLOOD COUNT 6.8 10^3/uL (4.0-10.0)
[2020-06-19 13:09] LABS: ALBUMIN 3.9 GM/DL (3.2-5.2); ALT/SGPT 32 U/L (12-78); BILIRUBIN,TOTAL 0.4 MG/DL (0.2-1.0); BLOOD UREA NITROGEN 5 MG/DL (7-18); CALCIUM LEVEL 9.5 MG/DL (8.5-10.1); CARBON DIOXIDE LEVEL 29 MEQ/L (21-32); CHLORIDE LEVEL 104 MEQ/L (98-107); CREATININE FOR GFR 0.73 MG/DL (0.55-1.30); FREE T4 0.82 NG/DL (0.76-1.46); GLOMERULAR FILTRATION RATE > 60.0 (>51); GLUCOSE, FASTING 97 MG/DL (70-100); POTASSIUM SERUM 4.7 MEQ/L (3.5-5.1); PROLACTIN 9.8 NG/ML; SODIUM LEVEL 138 MEQ/L (136-145); THYROID STIMULATING HORMONE 0.661 uIU/ML (0.358-3.740)
== END ==
LOC: M SFHCPLAZ 10:56
PROVIDERS: ATTEND Family Medicine
DX: N95.1 Menopausal and female climacteric states (principal); E07.9 Disorder of thyroid, unspecified
CPT/HCPCS: 36415; 80053; 84146; 84439; 84443; 85025; G0463

== ENCOUNTER → 2020-04-11 | Outpatient (POV) | payer OTHER, MEDICAID ==
[~2020-04-11] MED LIST changes: +BUPIVACAINE HCL 0.25% 30ML VIAL As Ordered ONE; -HYDR-3713 PO; +ISOVUE-M 300 61% 15ML VIAL As Ordered ONE; +LIDOCAINE 1% SDV 30ML VIAL As Ordered ONE; -OMEP-221 PO; +TRIAMCINOLONE ACETONIDE SUSP 40 MG/ML VIAL (J3301) As Ordered ONE; +diazePAM 5 MG TAB As Ordered ONE; +oxyCODONE 5MG TAB As Ordered ONE
--- NOTE | 2020-05-18 13:29 | REP ---
SI JOINT SERIES: LIMITED STUDY INTRPROCEDURAL IMAGING 5-VIEWS HISTORY: SI joint injection procedure for pain. 29 seconds of fluoroscopy time was reported. FINDINGS: A sequence of five last image hold fluoroscopically obtained spot radiographs of the pelvis and SI joints document needle position and contrast injection associated with injection procedure. MTDD
== END ==
LOC: M PAIN 10:00
PROVIDERS: ATTEND Anesthesiology
DX: M46.1 Sacroiliitis, not elsewhere classified (principal)

== ENCOUNTER → 2020-04-26 | Outpatient (CLI) | payer OTHER, MEDICAID ==
[~2020-04-26] MED LIST changes: -BUPIVACAINE HCL 0.25% 30ML VIAL As Ordered ONE; +HYDR-3713 PO; -ISOVUE-M 300 61% 15ML VIAL As Ordered ONE; -LIDOCAINE 1% SDV 30ML VIAL As Ordered ONE; +OMEP-221 PO; -TRIAMCINOLONE ACETONIDE SUSP 40 MG/ML VIAL (J3301) As Ordered ONE; -diazePAM 5 MG TAB As Ordered ONE; -oxyCODONE 5MG TAB As Ordered ONE
== END ==
LOC: M PAIN 10:33
PROVIDERS: ATTEND Family Medicine
DX: M46.1 Sacroiliitis, not elsewhere classified (principal)

== ENCOUNTER → 2020-05-04 | Outpatient (CLI) | payer OTHER, MEDICAID ==
--- NOTE | 2020-05-24 17:15 | REP ---
LOW DOSE LUNG SCREENING EXAMINATION: CLINICAL: Nicotine dependence. TECHNIQUE: Axial noncontrast images from the thoracic inlet to the upper abdomen using low dose lung screening technique. COMPARISON: 01/13/19 FINDINGS: The bilateral lung lopez are well-aerated and clear. No consolidation or significant nodule/mass appreciated. No effusion. The tracheobronchial tree is patent. The mediastinum demonstrates atherosclerotic changes to the thoracic aorta and coronary arteries. IMPRESSION: Lung-RADS category 1. Management recommendations included annual low dose CT evaluation. MTDD
== END ==
LOC: M RAD 13:53
PROVIDERS: ATTEND Family Medicine
DX: F17.210 Nicotine dependence, cigarettes, uncomplicated (principal)

== ENCOUNTER → 2020-06-26 | Outpatient (CLI) | payer OTHER, MEDICAID, MEDICARE ==
[~2020-06-26] MED LIST changes: -HYDR-3713 PO; -OMEP-221 PO
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
== END ==
LOC: M PAIN 11:00
PROVIDERS: ATTEND Family Medicine
DX: M46.1 Sacroiliitis, not elsewhere classified (principal); E78.00 Pure hypercholesterolemia, unspecified; I25.2 Old myocardial infarction; K21.9 Gastro-esophageal reflux disease without esophagitis; H90.3 Sensorineural hearing loss, bilateral; F17.210 Nicotine dependence, cigarettes, uncomplicated; M19.90 Unspecified osteoarthritis, unspecified site; Z85.828 Personal history of other malignant neoplasm of skin; Z79.891 Long term (current) use of opiate analgesic; Z79.899 Other long term (current) drug therapy; Z88.8 Allergy status to other drugs, medicaments and biological substances

== ENCOUNTER 2020-07-06 11:06 | Emergency (ER) | payer OTHER, MEDICAID ==
[~2020-07-06] VITALS: Ht 152.4 cm; Wt 42.4 kg
[2020-07-06] MEDS ORDERED: OMEP-221 PO (11:21)
[2020-07-06] MEDS ORDERED: HYDR-3713 PO (11:21)
--- NOTE | 2020-07-06 11:41 | REP ---
INDICATION: swelling and bruising after fall. COMPARISON: Comparison right wrist radiographs June 01, 2018.. TECHNIQUE: Four views of the right hand. FINDINGS: Four views of the right hand demonstrate a nondisplaced obliquely oriented fracture througha the 5th metacarpal with overlying soft tissue swelling. No other acute fracture is seen. There is moderate osteoarthritis affecting the IP joint of the thumb and the DIP joints of the index long ring and small fingers. There is a screw plate fixation device is in place in the distal radius from previous fracture fixation.. . . IMPRESSION: Acute nondisplaced obliquely oriented fracture through the 5th metacarpal diaphysis. Overlying swelling. Old screw plate fixation distal radial fracture. Osteoarthritis of the IP joint of the thumb and the DIP joints of the fingers.. <Electronically signed by Lester Handley > 07/06/20 [id number]
--- NOTE | 2020-07-06 11:42 | REP ---
INDICATION: swelling and bruising after fall. COMPARISON: June 01, 2018. TECHNIQUE: Four views of the right wrist. FINDINGS: Four views of the right wrist demonstrate screw plate fixation device along the volar aspect of the distal radius from previous fracture fixation. There is diffuse osteopenia. No carpal or distal forearm fracture is seen. There is an obliquely oriented acute fracture visible through the diaphysis of the 5th meta carpal. IMPRESSION: Acute fractures seen at the edge of the field of view in the diaphysis of the 5th metacarpal. Overlying soft tissue swelling. Old screw plate fixation device in the distal radius. <Electronically signed by Lester Handley > 07/06/20 0503
[2020-07-06 12:52] VITALS: BP 151/93
== END 2020-07-06 13:03 | disposition home or self-care (01) ==
LOC: M ED 11:06
DX: S60.221A Contusion of right hand, initial encounter (principal); S62.606A Fracture of unspecified phalanx of right little finger, initial encounter for closed fracture; W10.8XXA Fall (on) (from) other stairs and steps, initial encounter; Y92.018 Other place in single-family (private) house as the place of occurrence of the external cause; M19.041 Primary osteoarthritis, right hand; I10 Essential (primary) hypertension; F33.9 Major depressive disorder, recurrent, unspecified; E78.5 Hyperlipidemia, unspecified; K21.9 Gastro-esophageal reflux disease without esophagitis; I25.2 Old myocardial infarction; G43.909 Migraine, unspecified, not intractable, without status migrainosus; Z95.5 Presence of coronary angioplasty implant and graft; Z79.899 Other long term (current) drug therapy; Z88.8 Allergy status to other drugs, medicaments and biological substances; F17.210 Nicotine dependence, cigarettes, uncomplicated

== ENCOUNTER → 2020-07-26 | Outpatient (CLI) | payer OTHER, MEDICAID, MEDICARE ==
[~2020-07-26] MED LIST changes: +HYDR-3713 PO; +OMEP-221 PO
== END ==
LOC: M LABSMTC 10:59
PROVIDERS: ATTEND Anesthesiology
DX: Z20.828 Contact with and (suspected) exposure to other viral communicable diseases (principal)

== ENCOUNTER → 2020-07-30 | Outpatient (REF) | payer OTHER, MEDICAID, MEDICARE ==
[2020-07-30 15:50] LABS: HEMATOCRIT 38.5 % (36.0-47.0); HEMOGLOBIN 12.7 g/dl (12.0-15.5); MEAN CORPUSCULAR HEMOGLOBIN 32.2 pg (27.0-33.0); MEAN CORPUSCULAR VOLUME 97.5 fl (80.0-96.0); PLATELET COUNT, AUTOMATED 459 10^3/uL (150-450); RED BLOOD COUNT 3.95 10^6/uL (4.00-5.40); WHITE BLOOD COUNT 7.1 10^3/uL (4.0-10.0)
== END ==
LOC: M SFHCPLAZ 13:42
PROVIDERS: ATTEND Family Medicine
DX: D47.3 Essential (hemorrhagic) thrombocythemia (principal)

== ENCOUNTER → 2020-07-30 | Outpatient (CLI) | payer OTHER, MEDICAID, MEDICARE ==
--- NOTE | 2020-07-30 18:32 | REPPI ---
INDICATION: S99.921A M79.671 INJURY OF RIGHT FOOT AND RIGHT FOOT PAIN COMPARISON: None. FINDINGS: There is no fracture or dislocation. Mineralization is normal. There is mild joint space narrowing of the PIP and DIP articulations, likely early osteoarthritis. There are no calcifications or foreign bodies. IMPRESSION: Mild PIP and DIP joint space narrowing. No fracture or dislocation. <Electronically signed by Speedy Arthur > 07/30/20 [id number]
== END ==
LOC: M PLAIMG 13:43
PROVIDERS: ATTEND Family Medicine
DX: M19.071 Primary osteoarthritis, right ankle and foot (principal); S99.921A Unspecified injury of right foot, initial encounter; W20.8XXA Other cause of strike by thrown, projected or falling object, initial encounter; Y92.9 Unspecified place or not applicable; Y99.9 Unspecified external cause status; M79.671 Pain in right foot
CPT/HCPCS: 36415; 73630; 85027; G0463

== ENCOUNTER → 2020-07-31 | Outpatient (CLI) | payer OTHER, MEDICAID, MEDICARE ==
[~2020-07-31] MED LIST changes: +BUPIVACAINE HCL 0.25% 30ML VIAL As Ordered ONE; +ISOVUE-M 300 61% 15ML VIAL As Ordered ONE; +LIDOCAINE 1% SDV 30ML VIAL As Ordered ONE; +TRIAMCINOLONE ACETONIDE SUSP 40 MG/ML VIAL (J3301) As Ordered ONE; +diazePAM 5MG TABLET As Ordered ONE; +oxyCODONE 5MG TAB As Ordered ONE
--- NOTE | 2020-07-31 11:26 | REP ---
INDICATION: RIGHT SACROILLIAC JOIN INJECTION. COMPARISON: None. TECHNIQUE: Three views. 35.0 seconds of fluoroscopy time FINDINGS: A sequence of 3 last image hold fluoroscopically obtained spot radiographs of the right SI joint document various needle positions and contrast injections associated with injection procedure. IMPRESSION: Procedural imaging. <Electronically signed by Lester Handley > 07/31/20 [id number]
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
== END ==
LOC: M PAIN 10:00
PROVIDERS: ATTEND Anesthesiology
DX: M46.1 Sacroiliitis, not elsewhere classified (principal); M53.3 Sacrococcygeal disorders, not elsewhere classified; K21.9 Gastro-esophageal reflux disease without esophagitis; F17.210 Nicotine dependence, cigarettes, uncomplicated; Z95.5 Presence of coronary angioplasty implant and graft; Z88.8 Allergy status to other drugs, medicaments and biological substances; Z79.899 Other long term (current) drug therapy
CPT/HCPCS: G0260; J3301; Q9967

== ENCOUNTER → 2020-08-29 | Outpatient (CLI) | payer OTHER, MEDICAID, MEDICARE ==
[~2020-08-29] MED LIST changes: -BUPIVACAINE HCL 0.25% 30ML VIAL As Ordered ONE; -ISOVUE-M 300 61% 15ML VIAL As Ordered ONE; -LIDOCAINE 1% SDV 30ML VIAL As Ordered ONE; -TRIAMCINOLONE ACETONIDE SUSP 40 MG/ML VIAL (J3301) As Ordered ONE; -diazePAM 5MG TABLET As Ordered ONE; -oxyCODONE 5MG TAB As Ordered ONE
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
== END ==
LOC: M PAIN 11:15
PROVIDERS: ATTEND Family Medicine
DX: M46.1 Sacroiliitis, not elsewhere classified (principal); M54.5 Low back pain; K21.9 Gastro-esophageal reflux disease without esophagitis; F17.210 Nicotine dependence, cigarettes, uncomplicated; Z95.5 Presence of coronary angioplasty implant and graft; Z88.8 Allergy status to other drugs, medicaments and biological substances; Z79.899 Other long term (current) drug therapy

== ENCOUNTER → 2020-09-12 | Outpatient (CLI) | payer OTHER, MEDICAID, MEDICARE ==
[~2020-09-12] MED LIST changes: +GABA-282 PO; -GABA-843 PO
--- NOTE | 2020-09-12 14:26 | REPPI ---
INDICATION: R10.32 K59.00 LLQ PAIN CONSTIPATION. COMPARISON: None. TECHNIQUE: Supine KUB. FINDINGS: Bowel gas pattern is unremarkable. Air and stool is seen in a nondistended colon. No small or large bowel dilation is observed. The abdominal aorta is normal in caliber, calcified and tortuous. No mass or organomegaly is appreciated. No bony abnormality is seen. IMPRESSION: Unremarkable bowel gas pattern. Vascular calcification. <Electronically signed by Lester Handley > 09/12/20 1647
== END ==
LOC: M PLAIMG 14:03
PROVIDERS: ATTEND Family Medicine
DX: R10.32 Left lower quadrant pain (principal); K59.00 Constipation, unspecified

== ENCOUNTER → 2020-09-18 | Outpatient (CLI) | payer OTHER, MEDICAID ==
--- NOTE | 2020-09-19 08:47 | REP ---
INDICATION: R10.32 LLQ PAIN COMPARISON: None. TECHNIQUE: Transabdominal pelvic ultrasound followed by transvaginal examination for better evaluation of the endometrium and adnexa with color evaluation of the ovaries. FINDINGS: Bladder is unremarkable and measures 9.8 x 7.7 x 4.9 cm. Anteverted uterus measures 6.3 x 3.6 x 4.0 cm. The endometrial complex measures 2.3 mm thickness. 1.5 and 0.6 cm small intramural fibroids are suspected. Bilateral ovaries are normal in appearance and vascularity without evidence for torsion. Right ovary measures 2.2 x 1.4 x 1.5 cm; left ovary measures 2.2 x 1.1 x 1.5 cm. No pelvic fluid or adnexal mass lesion. IMPRESSION: Possible small fibroids suggested. <Electronically signed by Jose Mace > 09/19/20 [id number]
== END ==
LOC: M WHC 13:33
PROVIDERS: ATTEND Family Medicine
DX: R10.32 Left lower quadrant pain (principal)

== ENCOUNTER → 2020-11-14 | Outpatient (CLI) | payer OTHER, MEDICAID, MEDICARE ==
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
== END ==
LOC: M PAIN 13:30
PROVIDERS: ATTEND Family Medicine
DX: M46.96 Unspecified inflammatory spondylopathy, lumbar region (principal); G89.29 Other chronic pain; K21.9 Gastro-esophageal reflux disease without esophagitis; F17.210 Nicotine dependence, cigarettes, uncomplicated; Z88.8 Allergy status to other drugs, medicaments and biological substances; Z79.899 Other long term (current) drug therapy

== ENCOUNTER → 2020-12-18 | Outpatient (CLI) | payer OTHER, MEDICAID ==
--- NOTE | 2020-12-18 10:18 | REPVR ---
PROCEDURE INFORMATION: Exam: CT Maxillofacial Without Contrast, Sinus Exam date and time: 12/18/2020 10:06 AM Age: 55 years old Clinical indication: Maxilla pain; Additional info: Chronic pansinusitis TECHNIQUE: Imaging protocol: CT Maxillofacial without contrast. Focus on the sinuses. Radiation optimization: All CT scans at this facility use at least one of these dose optimization techniques: automated exposure control; mA and/or kV adjustment per patient size (includes targeted exams where dose is matched to clinical indication); or iterative reconstruction. COMPARISON: CT Maxilofacial w/out contrast 03/12/2018 12:06 PM FINDINGS: Frontal sinuses: Normal. No air-fluid levels. Ethmoid air cells: Normal. No air-fluid levels. Sphenoid sinuses: Normal. No air-fluid levels. Maxillary sinuses: Minor chronic mucosal disease involves the maxillary sinuses. Nasal cavity/Septum: There is again mild deviation of the nasal septum to the right superiorly and to the left inferiorly. The ostiomeatal units are patent. Orbital cavity: Orbits are normal. Globes are unremarkable. Bones/joints: Productive changes are present about the dens. No acute fracture is identified. Soft tissues: Unremarkable. Brain: The visualized intracranial structures appear grossly unremarkable. IMPRESSION: Minor chronic bilateral maxillary sinus disease. Sinuses otherwise clear. Electronically signed by: Edinson Bautista On 12/18/2020 10:18:03 AM
== END ==
LOC: M RAD 09:44
PROVIDERS: ATTEND Otolaryngology
DX: J32.4 Chronic pansinusitis (principal)

== ENCOUNTER → 2021-03-20 | Outpatient (CLI) | payer OTHER, MEDICAID, MEDICARE ==
[~2021-03-20] MED LIST changes: +ERGO500029; +OMEP40CA4 PO; -OMEP40CA97 PO; -VITA50005
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
== END ==
LOC: M PAIN 14:30
PROVIDERS: ATTEND Family Medicine
DX: M79.18 Myalgia, other site (principal); F17.210 Nicotine dependence, cigarettes, uncomplicated; I25.2 Old myocardial infarction; E78.00 Pure hypercholesterolemia, unspecified; M19.90 Unspecified osteoarthritis, unspecified site; H90.5 Unspecified sensorineural hearing loss; K21.9 Gastro-esophageal reflux disease without esophagitis; Z95.828 Presence of other vascular implants and grafts; Z95.5 Presence of coronary angioplasty implant and graft; Z79.891 Long term (current) use of opiate analgesic; Z79.899 Other long term (current) drug therapy; Z88.8 Allergy status to other drugs, medicaments and biological substances

== ENCOUNTER → 2021-04-04 | Outpatient (CLI) | payer OTHER, MEDICAID, MEDICARE ==
[~2021-04-04] MED LIST changes: -DOXY100C PO; +DOXY100C3 PO; -LISI2.5T2 PO; +LISI2.5T9 PO
== END ==
LOC: M LABSMTC 13:25
PROVIDERS: ATTEND Anesthesiology
DX: Z01.812 Encounter for preprocedural laboratory examination (principal); Z20.822 Contact with and (suspected) exposure to COVID-19

== ENCOUNTER → 2021-04-09 | Outpatient (CLI) | payer OTHER ==
[~2021-04-09] MED LIST changes: +BUPIVACAINE HCL 0.25% 10ML VIAL As Ordered ONE; +BUPIVACAINE HCL 0.25% 30ML VIAL As Ordered ONE; +NORCO, ANEXSIA 5/325MG TABLET (HYDROcodone/ACETAMINOPHEN) As Ordered ONE; +TRIAMCINOLONE ACETONIDE SUSP 40 MG/ML VIAL (J3301) As Ordered ONE; +diazePAM 5MG TABLET As Ordered ONE; +oxyCODONE 5MG TAB As Ordered ONE
--- NOTE | 2021-04-21 23:28 | ECWPNPC ---
PATIENT NAME: OMAR REYES : 1965 GENDER: FEMALE VISIT DATE: 04/09/2021 DISCHARGE DATE: 04/09/211651 VISIT LOCKED DATE TIME: PHYSICIAN: ZEKE SNOW MD PHYSICIAN PAGER NO: ACTIVE RESOURCE: ZEKE SNOW MD REASON FOR APPOINTMENT 1. TRIGGER POINT INJECTIONS TO BILATERAL NECK AND BILATERAL SHOULDERS HISTORY OF PRESENT ILLNESS PAIN CENTER INTAKE QUESTIONS: DO YOU HAVE A HISTORY OF MRSA? :NO DO YOU TAKE A BLOOD THINNERS? :NO DO YOU HAVE ANY BLEEDING DISORDERS? :NO ANY NEW NUMBNESS OR WEAKNESS IN YOUR LEGS OR ARMS? :NO ANY PACEMAKER,DEFIBRILLATOR, OR DORSAL COLUMN STIMULATOR? :NO DO YOU HAVE ANY RASHES OR OPEN SORES? :NO ARE YOU ALLERGIC TO IV DYE? :NO ARE YOU DIABETIC? :NO ANY NEW PROBLEMS WITH YOUR MEDICATIONS? :NO HAVE YOU RECEIVED A VACCINE IN THE PAST 30 DAYS? :NO DO YOU PLAN TO RECEIVE A VACCINE IN THE NEXT 21 DAYS? :NO DO YOU TAKE ANY IMMUNOSUPPRESSIVE MEDICATIONS? :NO ANY HISTORY OF SEIZURES? :NO ANY HISTORY OF CARDIAC ISSUES OR EVENTS? :NO DO YOU HAVE ANY KIDNEY OR LIVER DISEASE? :NO DO YOU HAVE SLEEP APNEA? :NO ANY RECENT HEAD INJURY? :NO DO YOU HAVE ANY NEW INFECTIONS? :NO IS THERE A CHANCE YOU COULD BE ? :NO ARE YOU BREAST FEEDING? :NO WHEN DID YOU LAST EAT? : -"LATE LAST NIGHT" WHEN DID YOU LAST DRINK? : -TODAY AT NO[place] WHAT DID YOU LAST DRINK? : -WATER NAME OF PERSON DRIVING YOU HOME? : - DO YOU HAVE ANY OTHER QUESTIONS OR CONCERNS? : - CURRENT MEDICATIONS TAKING BETAMETHASONE DIPROPIONATE AUG 0.05 % OINTMENT 1 APPLICATION TO AFFECTED AREA EXTERNALLY TWICE A DAY TO ITCHY AREAS UPPER BACK TO SHOULDERS TAKING SALINE MIST SPRAY 0.65 % SOLUTION SPRAY 2 SPRAYS IN EACH NOSTRIL EVERY 6 HOURS NEEDED TAKING OMEPRAZOLE MAGNESIUM 20 MG TABLET DELAYED RELEASE 1 TABLET 30 MINUTES BEFORE MORNING MEAL ORALLY ONCE DAILY NEEDED TAKING ASPIRIN 81 MG TABLET DELAYED RELEASE 1 TABLET ORALLY ONCE A DAY TAKING NITROGLYCERIN 0.4 MG TABLET SUBLINGUAL SUBLINGUAL TAKING NICORETTE MINI 4 MG LOZENGE 1 LOZENGE NEEDED MOUTH/THROAT 20 TIME(S) A DAY TAKING VOLTAREN 1 % GEL DIRECTED TRANSDERMAL 4 GMS TID PRN TAKING HYDROCODONE-ACETAMINOPHEN 5-325 MG TABLET 1 TABLET NEEDED ORALLY EVERY 12 HRS PRN PAIN NOT-TAKING LORATADINE 10 MG TABLET 1 TABLET ORALLY ONCE A DAY MEDICATION LIST REVIEWED AND RECONCILED WITH THE PATIENT PAST MEDICAL HISTORY NSTEMI 10/02/18, 3 DRUG-ELUTING STENTS PLACED IN RCA AT [facility]; LAD 100% OCCLUDED; NORMAL LV SYSTOLIC FUNCTION ON CATH HYPERCHOLESTEREMIA - CAN'T TOLERATE STATINS NECK PAIN AND BACK PAIN DUE TO OA/DDD - Apple SILVER 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 LAKE H/O PYELONEPHRITIS H/O TORN LEFT BICEP - DR. LAKE, DR. JUNG POST-MENOPAUSE SWEATING - Medardo MANNING GERD SUSPECT UCTD/+ DEMETRIUS H/O IRON DEFICIENCY ANEMIA NICOTINE USE - 1-1.5 PPD X [address] DO[address] NEGATIVE 12/2018, 05/2020 SQUAMOUS CELL CARCINOMA IN SITU (SCCIS) OF SKIN - DR. GUTIÉRREZ ALLERGIES STATINS (FOR ALLERGY USE ONLY): MUSCLE PAIN - SIDE EFFECTS GABAPENTIN: BOILS/MEMORY - SIDE EFFECTS HYDROQUINONE: WEIGHT LOSS - SIDE EFFECTS ALIROCUMAB: MUSCLE ACHES - SIDE EFFECTS HYDROXYCHLOROQUINE: SEVERE WEIGHT LOSS - CONTRAINDICATION AMITRIPTYLINE HCL: DEPRESSION - SIDE EFFECTS REPATHA: NAUSEA/VOMITING - ALLERGY SURGICAL HISTORY RIGHT ACL REPAIR 1998 BILATERAL CATARACT SURGERY 2013 BREAST BIOPSY FOR BENIGN CALCIFICATIONS - DR FARLEY 2014 COLONOSCOPY - NORMAL, REPEAT IN 10 YEARS; DR. NGUYEN 05/21/15 EGD - NORMAL; WENDY 12/18/17 COLONOSCOPY - NORMAL, INTERNAL HEMORRHOIDS, SIGMOID DIVERTICULOSIS; WENDY 12/18/17 BIOPSY GROIN SCC 02/2018 ORIF-RIGHT DISTAL RADIUS 06/14/2018 EXCISION OF GROIN PRECANCER SCC - [facility] 08/12/18 3 DRUG-ELUTING STENTS PLACED IN RCA, DR. JON AT [facility] 10/02/2018 STENT PLACED HEART 10/22/2018 HOSPITALIZATION/MAJOR DIAGNOSTIC PROCEDURE FLU SYMPTOMS WITH HYPOTENSION AND DEHYDRATION 07/2014 SURGERY RELATED 10/02/2018 CHILDBIRTH VITAL SIGNS WT 91.4 LBS, WT-KG 41.46 KG, HT 60 IN, BMI 17.85 INDEX, BP 144/90 MM HG, HR 92 /MIN, RR 18 /MIN, TEMP 98.5 F, OXYGEN SAT % 99%, SAFE IN ENV? (Y/N) YES, NA INITIALS AW 1414, REVIEWED BY: KG. EXAMINATION GENERAL EXAMINATION: THE PATIENT IS ALERT, ORIENTED TIMES THREE AND COOPERATIVE. LUNGS ARE CLEAR TO AUSCULTATION. HEART SHOWS REGULAR RHYTHM, NO MURMURS AND NO GALLOPS. ASSESSMENTS MYALGIA - M79.1 (PRIMARY) TREATMENT MYALGIA COMPLETION OF PROCEDURAL VISIT WHEN MEETS [id number],KAREN 04/09/2021 4:17:33 PM > CRITERIA MET MED: PAIN NORCO TABLET 5MG/325MG ORALLY HYDROCODONE/[id number],NICOLE 04/09/2021 3:05:11 PM > VERIFIED TALA HAWKINS 04/09/2021 3:07:02 PM > GIVEN MEDICATION: PAIN VALIUM TAB 5MG ORALLY (DIAZEPAM)[id number] 04/09/2021 3:05:26 PM > VERIFIED TALA HAWKINS 04/09/2021 3:07:23 PM > GIVEN PROCEDURES PAIN NURSING RECORD PROCEDURE IN ROOM 1400, PHYSICIAN IN ROOM 1607, START 1609, FINISH 1613, PHYSICIAN OUT OF ROOM 1614, ECG N/A, PATIENT SHIELDED N/A, SAFETY STRAP N/A, PREP ALCOHOL DR. SNOW, DRESSING TEGADERM LOC: 1. ALERT, ORIENTED RESP: 1. REGULAR, NO DYSPNEA COLOR: 1. PINK TALA HAWKINS 04/09/2021 3:57:03 PM > SKIN: 1. WARM, DRY POSITION: 5. SITTING VITALS: PRE SEDATE GIVEN 1507 1520 148/66 90 96% ON RA RESP 18 1535 154/6/68 5 88 95% ON RA RESP 16 1550 162 88 94% ON RA 18 RESP POST PROCEDURE 168/88 92 96% ON RA 18 RESP NOTES Evan HAWKINS RN PT TOLERATED PROCEDURE AFTER SEDATION GIVEN SIDE RAILINGS UP WITH CALL HASSAN WITHIN REACH. COMPLETION OF PROCEDURE APPOINTMENT: POST PAIN 0, DRESSING SITE DRY AND INTACT, IV N/A, GAIT STEADY, TEACHING COMPLETED, PATIENT ACKNOWLEDGES UNDERSTANDING YES, PROCEDURE APPOINTMENT COMPLETED AT 1628 PN TRIGGER POINT INJECTION WITH STEROIDS PRE PROCEDURE DIAGNOSIS 1. MYALGIA 2. PAIN AT BILATERAL NECK AREA AND BILATERAL SHOULDER AREA POST PROCEDURE DIAGNOSIS 1. MYALGIA 2. PAIN AT BILATERAL NECK AREA AND BILATERAL SHOULDER AREA PROCEDURE TRIGGER POINT INJECTION AT BILATERAL NECK AREA AND BILATERAL SHOULDER AREA SURGEON DR. ZEKE SNOW MULTI PURPOSE MACHINE OPERATOR NONE ANESTHESIA LOCAL PRE PROCEDURE NOTE THE PATIENT HAS A HISTORY OF CHRONIC PAIN AT THE RIGHT AND LEFT NECK AREA AND RIGHT AND LEFT SHOULDER AREA. I EVALUATED THE PATIENT AND REVIEWED THE CHART. THERE IS EVIDENCE OF BANDS OF TISSUE WITH RESTRICTION OF MOVEMENT AND PRESENCE OF TRIGGER POINT AT THE RIGHT AND LEFT NECK AREA AND RIGHT AND LEFT SHOULDER AREA. I WENT OVER THE RISKS, ALTERNATIVES, AND BENEFITS ASSOCIATED WITH THIS PROCEDURE. THE PATIENT WOULD LIKE TO PROCEED AND GIVE CONSENT TO PERFORMED THE PROCEDURE. THE PATIENT DENIES UNEXPLAINABLE WEIGHT LOSS, FEVER, CHILLS, OR NEW CHANGES IN URINARY OR BOWEL CONTROL. THE PATIENT IS COVID-19 NEGATIVE DESCRIPTION OF PROCEDURE THE PATIENT WAS BROUGHT TO THE PROCEDURE ROOM AND PLACED IN THE SITTING POSITION. THE AREA WAS CLEANED WITH ALCOHOL. THE PROCEDURE WAS DONE USING ASEPTIC STERILE TECHNIQUE. A TIMEOUT WAS PERFORMED WHERE THE CONSENTED SITE WAS VERIFIED WITH EVERYONE IN THE ROOM. USING A 25-GAUGE NEEDLE, TRIGGER POINTS WERE INJECTED AT THE RIGHT AND LEFT NECK AREA AND RIGHT AND LEFT SHOULDER AREA WITH A TOTAL OF 40 ML OF BUPIVACAINE 0.25% AND KENALOG 40 MG. THE MEDICATIONS WERE VERIFIED WITH THE NURSE. THERE WAS NO EVIDENCE OF BLOOD OR PARESTHESIA DURING THE PROCEDURE. THE PATIENT WAS SENT TO THE RECOVERY ROOM. THE PATIENT WAS MOVING THE EXTREMITIES AND DOING WELL. THERE WERE NO COMPLICATIONS DURING THE PROCEDURE. ESTIMATED BLOOD LOSS WAS LESS THAN 5 ML POST PROCEDURE NOTE THE PROCEDURE DONE WAS DISCUSSED WITH THE PATIENT. THE PATIENT WILL BE SEEN IN A FOLLOW UP IN THE NEXT FEW WEEKS. I AM LOOKING FOR LONG LASTING PAIN RELIEF FOR THE PATIENT WITH THIS INTERVENTION. INSTRUCTIONS WERE GIVEN, QUESTIONS WERE ANSWERED, AND THE PATIENT EXPRESSED UNDERSTANDING AND AGREES WITH THE PLAN. I, DANNY ARAYA, DOCUMENTED THE ABOVE INFORMATION ACTING A SCRIBE FOR DR. SNOW. I HAVE REVIEWED THE ABOVE DOCUMENT, WRITTEN BY DANNY ARAYA, TRIMMING OPERATOR, AND I VERIFY THAT IT IS ACCURATE VISIT CODES PROCEDURE CODES 66872 INJECT TRIGGER POINTS, =/> 3 DISPOSITION & COMMUNICATION FOLLOW UP FOLLOW UP WITH DIGITAL DESIGNER (REASON: POST TRIGGER POINT INJECTIONS BILATERAL NECK AND BILATERAL SHOULDERS) ELECTRONICALLY SIGNED BY ZEKE SNOW MD, MD ON 04/21/2021 AT 07:12 PM EDT DISCLAIMER : THIS IS A VISIT SUMMARY EXTRACTED FROM THE [employer] CHART. IT IS NOT A COPY OF THE [employer] PROGRESS NOTE. [facility]
== END ==
LOC: M PAIN 14:00
PROVIDERS: ATTEND Anesthesiology
DX: M79.18 Myalgia, other site (principal); K21.9 Gastro-esophageal reflux disease without esophagitis; Z88.8 Allergy status to other drugs, medicaments and biological substances; Z79.82 Long term (current) use of aspirin; Z79.899 Other long term (current) drug therapy
CPT/HCPCS: 20553; J3301

== ENCOUNTER → 2021-05-08 | Outpatient (CLI) | payer OTHER ==
[~2021-05-08] MED LIST changes: -BUPIVACAINE HCL 0.25% 10ML VIAL As Ordered ONE; -BUPIVACAINE HCL 0.25% 30ML VIAL As Ordered ONE; -NORCO, ANEXSIA 5/325MG TABLET (HYDROcodone/ACETAMINOPHEN) As Ordered ONE; -TRIAMCINOLONE ACETONIDE SUSP 40 MG/ML VIAL (J3301) As Ordered ONE; -diazePAM 5MG TABLET As Ordered ONE; -oxyCODONE 5MG TAB As Ordered ONE
--- NOTE | 2021-05-08 15:05 | REP ---
INDICATION: FALL, INITIAL ENCOUNTER. COMPARISON: None TECHNIQUE: Two views FINDINGS: Two limited view show no gross fracture or destructive osseous lesion. Mortise is intact. IMPRESSION: Two limited view showing no evidence of a gross fracture. Trauma series consists of four views. If a fracture is of clinical concern then a four view trauma series is recommended. <Electronically signed by Mushtaq Contreras > 05/08/21 [id number]
--- NOTE | 2021-05-08 15:06 | REP ---
INDICATION: FALL, INITIAL ENCOUNTER. COMPARISON: None. TECHNIQUE: AP and lateral views FINDINGS: There is a subtle fracture of the proximal fibular head with minimal cortical overlap medially. IMPRESSION: Proximal fibular head fracture as described above. <Electronically signed by Mushtaq Contreras > 05/08/21 [id number]
--- NOTE | 2021-05-08 15:08 | REP ---
INDICATION: FALL, INITIAL ENCOUNTER COMPARISON: None TECHNIQUE: Five views FINDINGS: There is a proximal fibular head fracture with medial cortical overlap. Bones appear somewhat demineralized. IMPRESSION: Proximal fibular fracture as described above. No other acute abnormality is identified <Electronically signed by Mushtaq Contreras > 05/08/21 [id number]
== END ==
LOC: M PLAIMG 14:22
PROVIDERS: ATTEND Physician Assistant
DX: S82.831A Other fracture of upper and lower end of right fibula, initial encounter for closed fracture (principal); W19.XXXA Unspecified fall, initial encounter; Y92.9 Unspecified place or not applicable; Y93.9 Activity, unspecified; Y99.9 Unspecified external cause status; M79.661 Pain in right lower leg; M25.571 Pain in right ankle and joints of right foot
CPT/HCPCS: 73564; 73590; 73600; G0463

== ENCOUNTER → 2021-06-26 | Outpatient (CLI) | payer OTHER ==
--- NOTE | 2021-06-26 13:00 | REP ---
INDICATION: NICOTINE DEPENDENCE. COMPARISON: Multiple the latest 05/04/2020 also low-dose screening CT TECHNIQUE: Axial noncontrast images from the thoracic inlet to the upper abdomen using low-dose lung screening technique (LDCT). Once again, as per the protocol only lung window images were sent to the read station for interpretation. FINDINGS: No new abnormal nodules, masses, or opacities have developed. Grossly, the mediastinum and pulmonary michelle are unchanged. Grossly, the imaged upper abdomen and imaged osseous structures are unchanged. IMPRESSION: Stable lung rads category 1 low-dose screening CT of the lungs. Follow-up as per the revised Fleischner society criteria. <Electronically signed by Mushtaq Contreras > 06/26/21 1257
== END ==
LOC: M RAD 09:22
PROVIDERS: ATTEND Family Medicine
DX: Z12.2 Encounter for screening for malignant neoplasm of respiratory organs (principal); F17.210 Nicotine dependence, cigarettes, uncomplicated

== ENCOUNTER → 2021-08-06 | Outpatient (CLI) | payer OTHER ==
[~2021-08-06] MED LIST changes: -OMEP-221 PO; +OMEP40CA5 PO
== END ==
LOC: M PAIN 09:30
PROVIDERS: ATTEND Anesthesiology
DX: M47.812 Spondylosis without myelopathy or radiculopathy, cervical region (principal); I25.2 Old myocardial infarction; Z95.5 Presence of coronary angioplasty implant and graft; E78.00 Pure hypercholesterolemia, unspecified; M54.2 Cervicalgia; K21.9 Gastro-esophageal reflux disease without esophagitis; F17.210 Nicotine dependence, cigarettes, uncomplicated; Z79.891 Long term (current) use of opiate analgesic; Z79.899 Other long term (current) drug therapy; Z79.82 Long term (current) use of aspirin; Z88.8 Allergy status to other drugs, medicaments and biological substances

== ENCOUNTER → 2021-09-10 | Outpatient (CLI) | payer OTHER | LOC: M PLAIMG 09:37 | PROVIDERS: ATTEND Anesthesiology | DX: M47.812 Spondylosis without myelopathy or radiculopathy, cervical region (principal); M50.322 Other cervical disc degeneration at C5-C6 level ==

== ENCOUNTER 2021-11-25 12:19 | Emergency (ER) | payer OTHER ==
[~2021-11-25] VITALS: Ht 152.4 cm; Wt 41.9 kg
[2021-11-25] MEDS ORDERED: ASPI81TA26 PO (12:34)
[2021-11-25] MEDS ORDERED: EZET10TA21 (12:34)
[2021-11-25 12:57] LABS: BASO % 0.3 % (0.0-1.0); EOS % 0.4 % (0.0-3.0); HEMATOCRIT 41.4 % (36.0-47.0); HEMOGLOBIN 14.9 g/dl (12.0-15.5); LYMPH # 2.5 10^3/uL (1.5-5.0); LYMPH % 26.7 % (24.0-44.0); MEAN CORPUSCULAR HEMOGLOBIN 36.9 pg (27.0-33.0); MEAN CORPUSCULAR VOLUME 102.5 fl (80.0-96.0); MONO # 0.9 10^3/uL (0.0-0.8); MONO % 9.3 % (2.0-8.0); NEUTROPHILS # 5.8 10^3/uL (1.5-8.5); NEUTROPHILS % 62.9 % (36.0-66.0); PLATELET COUNT, AUTOMATED 465 10^3/uL (150-450); RED BLOOD COUNT 4.04 10^6/uL (4.00-5.40); WHITE BLOOD COUNT 9.2 10^3/uL (4.0-10.0)
[2021-11-25 13:21] LABS: BLOOD UREA NITROGEN 7 MG/DL (7-18); CALCIUM LEVEL 9.1 MG/DL (8.5-10.1); CARBON DIOXIDE LEVEL 29 MEQ/L (21-32); CHLORIDE LEVEL 100 MEQ/L (98-107); CREATININE FOR GFR 0.64 MG/DL (0.55-1.30); GLOMERULAR FILTRATION RATE > 60.0 (>51); GLUCOSE, FASTING 75 MG/DL (70-100); POTASSIUM SERUM 3.8 MEQ/L (3.5-5.1); SODIUM LEVEL 135 MEQ/L (136-145)
[2021-11-25] MEDS ORDERED: ASPIRIN 81 MG CHEW TABLET PO ONE (13:35)
[2021-11-25] MEDS ORDERED: ISOVUE-370 76% 100ML VIAL As Ordered ONE (13:42)
[2021-11-25 13:43] LABS: ALBUMIN 3.9 GM/DL (3.2-5.2); ALT/SGPT 36 U/L (12-78); BILIRUBIN,DIRECT < 0.1 MG/DL (0.0-0.2); BILIRUBIN,TOTAL 0.4 MG/DL (0.2-1.0); LIPASE 126 U/L (73-393); TOTAL PROTEIN 8.1 GM/DL (6.4-8.2)
[2021-11-25] MEDS: NITROGLYCERIN 0.4 MG SUBL TABLET SL PRN ×2 (13:55→14:00)
[2021-11-25 14:01] LABS: CK-MB VALUE MASS < 1.0 NG/ML (<3.6); CPK CREATINE PHOSPHOKINASE 89 U/L (26-192); MB/CK RELATIVE INDEX 1.12 (< OR =4)
[2021-11-25 15:44] LABS: CK-MB VALUE MASS < 1.0 NG/ML (<3.6); CPK CREATINE PHOSPHOKINASE 71 U/L (26-192); MB/CK RELATIVE INDEX 1.41 (< OR =4)
[2021-11-25] MEDS ORDERED: PERCOCET 5MG/325MG TAB PO ONE (16:45)
[2021-11-25] MEDS ORDERED: PERC5TAB12 PO (16:48)
[2021-11-25 17:09] VITALS: BP 124/72
== END 2021-11-25 17:15 | disposition home or self-care (01) ==
LOC: M ED 12:19
DX: R07.9 Chest pain, unspecified (principal); I25.10 Atherosclerotic heart disease of native coronary artery without angina pectoris; I25.2 Old myocardial infarction; E78.5 Hyperlipidemia, unspecified; Z95.5 Presence of coronary angioplasty implant and graft; F17.200 Nicotine dependence, unspecified, uncomplicated; Z82.49 Family history of ischemic heart disease and other diseases of the circulatory system; Z79.899 Other long term (current) drug therapy; Z88.8 Allergy status to other drugs, medicaments and biological substances
CPT/HCPCS: 71045; 71275; 80048; 80076; 82550; 82553; 83690; 84484; 85025; 93005; 93041; 93970; 94760; 99285; Q9967

== ENCOUNTER 2022-01-22 10:07 | Emergency (ER) | payer OTHER ==
[~2022-01-22] VITALS: Ht 152.4 cm; Wt 39.6 kg
[~2022-01-22 10:07] MED LIST changes: +ASPI81TA26 PO; +EZET10TA21; +PERC5TAB12 PO
[2022-01-22 10:08] VITALS: BP 163/94
[2022-01-22] MEDS ORDERED: LEXA5TAB13 (10:24)
== END 2022-01-22 11:08 | disposition left against medical advice (07) ==
LOC: M ED 10:07
DX: Z53.21 Procedure and treatment not carried out due to patient leaving prior to being seen by health care provider (principal)

== ENCOUNTER → 2022-02-19 | Outpatient (REF) | payer OTHER ==
[~2022-02-19] MED LIST changes: +LEXA5TAB13
== END ==
LOC: M SFHCPLAZ 12:54
PROVIDERS: ATTEND Physician Assistant
DX: R05.9 Cough, unspecified (principal)

== ENCOUNTER → 2022-05-02 | Outpatient (CLI) | payer OTHER | LOC: M PAIN 15:00 | PROVIDERS: ATTEND Nurse Practitioner Family | DX: M79.10 Myalgia, unspecified site (principal); M47.812 Spondylosis without myelopathy or radiculopathy, cervical region; G89.29 Other chronic pain; K21.9 Gastro-esophageal reflux disease without esophagitis; F17.210 Nicotine dependence, cigarettes, uncomplicated; Z88.8 Allergy status to other drugs, medicaments and biological substances; Z79.899 Other long term (current) drug therapy ==

== ENCOUNTER → 2022-07-10 | Outpatient (CLI) | payer OTHER | LOC: M LAB 08:38 | PROVIDERS: ATTEND Nurse Practitioner Family | DX: M47.812 Spondylosis without myelopathy or radiculopathy, cervical region (principal); Z53.9 Procedure and treatment not carried out, unspecified reason ==

== ENCOUNTER → 2022-10-03 | Outpatient (CLI) | payer OTHER, MEDICARE | LOC: M PAIN 09:30 | PROVIDERS: ATTEND Anesthesiology | DX: M54.2 Cervicalgia (principal); M79.18 Myalgia, other site; I25.2 Old myocardial infarction; F17.210 Nicotine dependence, cigarettes, uncomplicated; Z88.8 Allergy status to other drugs, medicaments and biological substances; Z79.899 Other long term (current) drug therapy ==

== ENCOUNTER → 2022-11-19 | Outpatient (CLI) | payer OTHER, MEDICARE ==
[~2022-11-19] MED LIST changes: +BUPIVACAINE HCL 0.25% 10ML VIAL As Ordered ONE; +BUPIVACAINE HCL 0.25% 30ML VIAL As Ordered ONE; +NORCO, ANEXSIA 5/325MG TABLET (HYDROcodone/ACETAMINOPHEN) As Ordered ONE; +TRIAMCINOLONE ACETONIDE SUSP 40MG/ML 1ML VIAL As Ordered ONE; +diazePAM 5MG TABLET As Ordered ONE
== END ==
LOC: M PAIN 13:30
PROVIDERS: ATTEND Anesthesiology
DX: M79.18 Myalgia, other site (principal); G89.29 Other chronic pain; I25.10 Atherosclerotic heart disease of native coronary artery without angina pectoris; D75.89 Other specified diseases of blood and blood-forming organs; I25.2 Old myocardial infarction; F17.210 Nicotine dependence, cigarettes, uncomplicated; Z88.8 Allergy status to other drugs, medicaments and biological substances; Z79.899 Other long term (current) drug therapy
CPT/HCPCS: 20553; 36415; 80053; 80061; 84443; 85025; J3301

== ENCOUNTER → 2022-11-19 | Outpatient (CLI) | payer OTHER ==
[~2022-11-19] MED LIST changes: -BUPIVACAINE HCL 0.25% 10ML VIAL As Ordered ONE; -BUPIVACAINE HCL 0.25% 30ML VIAL As Ordered ONE; -NORCO, ANEXSIA 5/325MG TABLET (HYDROcodone/ACETAMINOPHEN) As Ordered ONE; -TRIAMCINOLONE ACETONIDE SUSP 40MG/ML 1ML VIAL As Ordered ONE; -diazePAM 5MG TABLET As Ordered ONE
[2022-11-19 14:33] LABS: BASO # 0.1 10^3/uL (0.0-0.2); BASO % 0.8 % (0.0-1.0); EOS % 0.6 % (0.0-3.0); HEMATOCRIT 43.5 % (36.0-47.0); HEMOGLOBIN 14.6 g/dl (12.0-15.5); LYMPH % 29.8 % (24.0-44.0); MEAN CORPUSCULAR HEMOGLOBIN 34.9 pg (27.0-33.0); MEAN CORPUSCULAR HGB CONC 33.6 g/dl (32.0-36.5); MEAN CORPUSCULAR VOLUME 104.1 fl (80.0-96.0); MONO # 0.7 10^3/uL (0.0-0.8); MONO % 10.5 % (2.0-8.0); NEUTROPHILS # 3.9 10^3/uL (1.5-8.5); PLATELET COUNT, AUTOMATED 544 10^3/uL (150-450); RED BLOOD COUNT 4.18 10^6/uL (4.00-5.40); WHITE BLOOD COUNT 6.7 10^3/uL (4.0-10.0)
[2022-11-19 15:06] LABS: ALBUMIN 3.9 G/DL (3.2-5.2); ALKALINE PHOSPHATASE 85 U/L (46-116); ALT/SGPT 32 U/L (7.0-40); AST/SGOT 41 U/L (<34); BILIRUBIN,TOTAL 0.6 MG/DL (0.3-1.2); BLOOD UREA NITROGEN 9 MG/DL (9-23); CALCIUM LEVEL 9.8 MG/DL (8.5-10.1); CARBON DIOXIDE LEVEL 29 MMOL/L (20-31); CHLORIDE LEVEL 98 MMOL/L (98-107); CHOLESTEROL LEVEL 231 MG/DL (<200); CHOLESTEROL RISK RATIO 3.19 (<5); CREATININE FOR GFR 0.54 MG/DL (0.55-1.30); GLOMERULAR FILTRATION RATE > 60.0 (>51); GLUCOSE, FASTING 81 MG/DL (60-100); HDL CHOLESTEROL 72.3 MG/DL (>40); LDL CHOLESTEROL 140.7 MG/DL (<100); NON-HDL-C 158.7 MG/DL; POTASSIUM SERUM 4.5 MMOL/L (3.5-5.1); SODIUM LEVEL 133 MMOL/L (136-145); TOTAL PROTEIN 7.7 G/DL (5.7-8.2); TRIGLYCERIDES LEVEL 90 MG/DL (<150)
[2022-11-19 15:08] LABS: THYROID STIMULATING HORMONE 1.246 uIU/ML (0.55-4.78)
[2022-11-20 09:46] LABS: IRON (FE) 179 UG/DL (50-170)
[2022-11-20 09:47] LABS: PERCENT SATURATION 50.1 % (13.2-45.0); TOTAL IRON BINDING CAPACITY 357 UG/DL (250-425)
[2022-11-20 09:49] LABS: FOLATE 12.3 NG/ML (>5.4)
[2022-11-20 09:54] LABS: VITAMIN B12 LEVEL 546 PG/ML (211-911)
== END ==
LOC: M LAB 12:49
PROVIDERS: ATTEND Physician Assistant
DX: I25.10 Atherosclerotic heart disease of native coronary artery without angina pectoris (principal); D75.89 Other specified diseases of blood and blood-forming organs

== ENCOUNTER → 2022-11-19 | Outpatient (CLI) | payer OTHER, MEDICARE ==
[~2022-11-19] MED LIST changes: -OFLO3OPSO OD; +OFLO5DRO OD
== END ==
LOC: M LABSMTC 09:50
PROVIDERS: ATTEND Anesthesiology
DX: Z01.818 Encounter for other preprocedural examination (principal); Z11.52 Encounter for screening for COVID-19

== ENCOUNTER → 2022-12-23 | Outpatient (CLI) | payer OTHER, MEDICAID ==
[2022-12-23 10:22] LABS: BASO % 0.7 % (0.0-1.0); EOS # 0.1 10^3/uL (0.0-0.5); EOS % 0.9 % (0.0-3.0); HEMATOCRIT 46.3 % (36.0-47.0); HEMOGLOBIN 15.5 g/dl (12.0-15.5); LYMPH # 1.6 10^3/uL (1.5-5.0); LYMPH % 28.4 % (24.0-44.0); MEAN CORPUSCULAR HEMOGLOBIN 34.9 pg (27.0-33.0); MEAN CORPUSCULAR HGB CONC 33.5 g/dl (32.0-36.5); MEAN CORPUSCULAR VOLUME 104.3 fl (80.0-96.0); MONO # 0.7 10^3/uL (0.0-0.8); MONO % 12.2 % (2.0-8.0); NEUTROPHILS # 3.3 10^3/uL (1.5-8.5); NEUTROPHILS % 57.6 % (36.0-66.0); PLATELET COUNT, AUTOMATED 467 10^3/uL (150-450); RED BLOOD COUNT 4.44 10^6/uL (4.00-5.40); WHITE BLOOD COUNT 5.7 10^3/uL (4.0-10.0)
[2022-12-25 15:11] LABS: FREE T3 3.2 PG/ML (2.3-4.2)
[2022-12-25 15:12] LABS: FREE T4 0.9 NG/DL (0.89-1.76); THYROID STIMULATING HORMONE 1.104 uIU/ML (0.55-4.78)
== END ==
LOC: M RAD 09:45
PROVIDERS: ATTEND Physician Assistant
DX: Z12.2 Encounter for screening for malignant neoplasm of respiratory organs (principal); F17.210 Nicotine dependence, cigarettes, uncomplicated; I70.90 Unspecified atherosclerosis; D75.89 Other specified diseases of blood and blood-forming organs

== ENCOUNTER → 2023-02-04 | Outpatient (CLI) | payer OTHER, MEDICAID ==
[~2023-02-04] MED LIST changes: +ASPI-655 PO; +BUSP10TA; -HYDR200T3 PO; +HYDR200T46 PO
== END ==
LOC: M PAIN 10:00
PROVIDERS: ATTEND Anesthesiology
DX: M79.18 Myalgia, other site (principal); G89.29 Other chronic pain; M54.12 Radiculopathy, cervical region; I25.2 Old myocardial infarction; F17.210 Nicotine dependence, cigarettes, uncomplicated; Z88.8 Allergy status to other drugs, medicaments and biological substances; Z79.899 Other long term (current) drug therapy

== ENCOUNTER → 2023-02-05 | Outpatient (REF) | payer OTHER, MEDICAID | LOC: M LAB REF 15:59 | PROVIDERS: ATTEND Physician Assistant | DX: J02.9 Acute pharyngitis, unspecified (principal) ==

== ENCOUNTER → 2023-03-19 | Outpatient (CLI) | payer OTHER, MEDICAID ==
[~2023-03-19] MED LIST changes: +TRIAMCINOLONE ACETONIDE SUSP 40MG/ML 1ML VIAL As Ordered ONE; +diazePAM 5MG TABLET As Ordered ONE; +oxyCODONE 5MG TAB As Ordered ONE
== END ==
LOC: M PAIN 09:30
PROVIDERS: ATTEND Anesthesiology
DX: M79.12 Myalgia of auxiliary muscles, head and neck (principal); R22.31 Localized swelling, mass and lump, right upper limb; I25.2 Old myocardial infarction; E78.00 Pure hypercholesterolemia, unspecified; M54.2 Cervicalgia; M19.90 Unspecified osteoarthritis, unspecified site; K21.9 Gastro-esophageal reflux disease without esophagitis; F17.210 Nicotine dependence, cigarettes, uncomplicated; H91.93 Unspecified hearing loss, bilateral; Z79.891 Long term (current) use of opiate analgesic; Z79.899 Other long term (current) drug therapy; Z88.8 Allergy status to other drugs, medicaments and biological substances
CPT/HCPCS: 20552; J0665; J3301

== ENCOUNTER → 2023-04-10 | Outpatient (CLI) | payer OTHER, MEDICAID ==
[~2023-04-10] MED LIST changes: +DICL100G10 TOP; -DICL1GEL3 TOP; +NORCO, ANEXSIA 5/325MG TABLET (HYDROcodone/ACETAMINOPHEN) As Ordered ONE; -oxyCODONE 5MG TAB As Ordered ONE
== END ==
LOC: M PAIN 09:00
PROVIDERS: ATTEND Anesthesiology
DX: M79.18 Myalgia, other site (principal); G89.29 Other chronic pain; F17.210 Nicotine dependence, cigarettes, uncomplicated; Z88.8 Allergy status to other drugs, medicaments and biological substances; Z79.899 Other long term (current) drug therapy
CPT/HCPCS: 20552; J0665; J3301

== ENCOUNTER 2023-04-28 12:16 | Emergency (ER) | payer OTHER, MEDICAID ==
[~2023-04-28] VITALS: Ht 149.9 cm; Wt 39.1 kg
[2023-04-28 12:16] VITALS: BP 136/81; TEMP 98.5; O2SAT 100
[~2023-04-28 12:16] MED LIST changes: -NORCO, ANEXSIA 5/325MG TABLET (HYDROcodone/ACETAMINOPHEN) As Ordered ONE; -TRIAMCINOLONE ACETONIDE SUSP 40MG/ML 1ML VIAL As Ordered ONE; -diazePAM 5MG TABLET As Ordered ONE
[2023-04-28] MEDS ORDERED: ALBU8.5H (12:48)
[2023-04-28] MEDS ORDERED: KETOROLAC 60MG 2ML VIAL IM ONE (14:05)
== END 2023-04-28 14:26 | disposition home or self-care (01) ==
LOC: M ED 12:16
DX: S90.01XA Contusion of right ankle, initial encounter (principal); W22.8XXA Striking against or struck by other objects, initial encounter; I25.2 Old myocardial infarction; F17.200 Nicotine dependence, unspecified, uncomplicated; F10.10 Alcohol abuse, uncomplicated; Z86.79 Personal history of other diseases of the circulatory system; Z87.442 Personal history of urinary calculi; Z88.8 Allergy status to other drugs, medicaments and biological substances; Z91.048 Other nonmedicinal substance allergy status
CPT/HCPCS: 73590; 73610; 96372; 99282; J1885

== ENCOUNTER → 2023-05-27 | Outpatient (CLI) | payer OTHER, MEDICAID ==
[~2023-05-27] MED LIST changes: +ALBU8.5H
== END ==
LOC: M PAIN 10:30
PROVIDERS: ATTEND Anesthesiology
DX: M79.10 Myalgia, unspecified site (principal); M54.2 Cervicalgia; M25.511 Pain in right shoulder; M25.512 Pain in left shoulder; F17.210 Nicotine dependence, cigarettes, uncomplicated; Z88.8 Allergy status to other drugs, medicaments and biological substances; Z79.899 Other long term (current) drug therapy

== ENCOUNTER → 2023-06-23 | Outpatient (CLI) | payer OTHER, MEDICAID | LOC: M PLAIMG 13:37 | PROVIDERS: ATTEND Anesthesiology | DX: M25.511 Pain in right shoulder (principal); M19.011 Primary osteoarthritis, right shoulder; M85.611 Other cyst of bone, right shoulder; M19.012 Primary osteoarthritis, left shoulder; M85.612 Other cyst of bone, left shoulder ==

== ENCOUNTER → 2023-09-16 | Outpatient (REF) | payer OTHER, MEDICAID ==
[2023-09-16 12:55] LABS: BASO % 0.6 % (0.0-1.0); EOS # 0.1 10^3/uL (0.0-0.5); EOS % 1.1 % (0.0-3.0); HEMATOCRIT 44.9 % (36.0-47.0); HEMOGLOBIN 15.5 g/dl (12.0-15.5); LYMPH # 1.8 10^3/uL (1.5-5.0); LYMPH % 27.5 % (24.0-44.0); MEAN CORPUSCULAR HEMOGLOBIN 35.9 pg (27.0-33.0); MEAN CORPUSCULAR HGB CONC 34.5 g/dl (32.0-36.5); MEAN CORPUSCULAR VOLUME 103.9 fl (80.0-96.0); MONO # 0.6 10^3/uL (0.0-0.8); MONO % 9.4 % (2.0-8.0); NEUTROPHILS % 61.1 % (36.0-66.0); PLATELET COUNT, AUTOMATED 403 10^3/uL (150-450); RED BLOOD COUNT 4.32 10^6/uL (4.00-5.40); WHITE BLOOD COUNT 6.5 10^3/uL (4.0-10.0)
[2023-09-16 13:25] LABS: CHOLESTEROL RISK RATIO 3.09 (<5); HDL CHOLESTEROL 80.8 MG/DL (>40); NON-HDL-C 169.2 MG/DL
[2023-09-16 13:27] LABS: THYROID STIMULATING HORMONE 1.035 uIU/ML (0.55-4.78); TOTAL 25(OH) VITAMIN D 13.7 NG/ML (20.0-100.0)
[2023-09-16 13:28] LABS: FOLATE 16.9 NG/ML (>5.4)
== END ==
LOC: M LAB REF 12:25
PROVIDERS: ATTEND Pediatrics
DX: J43.9 Emphysema, unspecified (principal); E78.5 Hyperlipidemia, unspecified; D75.89 Other specified diseases of blood and blood-forming organs; E55.9 Vitamin D deficiency, unspecified

== ENCOUNTER → 2023-09-23 | Outpatient (CLI) | payer MEDICAID | LOC: M PAIN 11:45 | PROVIDERS: ATTEND Anesthesiology | DX: M47.812 Spondylosis without myelopathy or radiculopathy, cervical region (principal); M54.2 Cervicalgia; M54.50 Low back pain, unspecified; M25.511 Pain in right shoulder; E78.00 Pure hypercholesterolemia, unspecified; K21.9 Gastro-esophageal reflux disease without esophagitis; F17.210 Nicotine dependence, cigarettes, uncomplicated; I25.2 Old myocardial infarction; Z79.891 Long term (current) use of opiate analgesic; Z79.899 Other long term (current) drug therapy; Z88.8 Allergy status to other drugs, medicaments and biological substances ==

== ENCOUNTER → 2023-10-01 | Outpatient (CLI) | payer MEDICARE, MEDICAID | LOC: M WHC 09:27 | PROVIDERS: ATTEND Pediatrics | DX: Z13.820 Encounter for screening for osteoporosis (principal); M81.0 Age-related osteoporosis without current pathological fracture ==

== ENCOUNTER → 2023-10-16 | Outpatient (CLI) | payer MEDICARE, MEDICAID | LOC: M SOG 09:26 | PROVIDERS: ATTEND Physician Assistant | DX: Z53.9 Procedure and treatment not carried out, unspecified reason (principal) ==

== ENCOUNTER → 2023-10-21 | Outpatient (CLI) | payer MEDICARE, MEDICAID | LOC: M PLAIMG 13:03 | PROVIDERS: ATTEND Anesthesiology | DX: M47.816 Spondylosis without myelopathy or radiculopathy, lumbar region (principal); M54.2 Cervicalgia; M47.812 Spondylosis without myelopathy or radiculopathy, cervical region; M48.02 Spinal stenosis, cervical region; J43.9 Emphysema, unspecified; M48.061 Spinal stenosis, lumbar region without neurogenic claudication ==

== ENCOUNTER → 2023-11-16 | Outpatient (CLI) | payer MEDICARE, MEDICAID | LOC: M PAIN 09:45 | PROVIDERS: ATTEND Nurse Practitioner Family | DX: M79.10 Myalgia, unspecified site (principal); Z79.891 Long term (current) use of opiate analgesic; M54.50 Low back pain, unspecified; M54.2 Cervicalgia; F17.200 Nicotine dependence, unspecified, uncomplicated; Z79.51 Long term (current) use of inhaled steroids; Z79.899 Other long term (current) drug therapy; Z88.1 Allergy status to other antibiotic agents; Z88.5 Allergy status to narcotic agent; Z88.8 Allergy status to other drugs, medicaments and biological substances ==

== ENCOUNTER → 2023-12-21 | Outpatient (REF) | payer MEDICARE, MEDICAID ==
[2023-12-21 19:06] LABS: ALBUMIN 3.9 G/DL (3.2-5.2); ALKALINE PHOSPHATASE 88 U/L (46-116); ALT/SGPT 31 U/L (7.0-40); AST/SGOT 37 U/L (<34); BILIRUBIN,TOTAL 0.4 MG/DL (0.3-1.2); BLOOD UREA NITROGEN 7 MG/DL (9-23); CARBON DIOXIDE LEVEL 29 MMOL/L (20-31); CHLORIDE LEVEL 99 MMOL/L (98-107); GLOMERULAR FILTRATION RATE > 60.0 (>45); GLUCOSE, FASTING 85 MG/DL (74-106); POTASSIUM SERUM 5.2 MMOL/L (3.5-5.1); SODIUM LEVEL 132 MMOL/L (136-145); TOTAL PROTEIN 7.5 G/DL (5.7-8.2)
== END ==
LOC: M LAB REF 16:27
PROVIDERS: ATTEND Pediatrics
DX: M81.0 Age-related osteoporosis without current pathological fracture (principal)

== ENCOUNTER → 2024-01-19 | Outpatient (CLI) | payer MEDICARE, MEDICAID ==
[~2024-01-19] MED LIST changes: +TRIAMCINOLONE ACETONIDE SUSP 40MG/ML 1ML VIAL As Ordered ONE; +diazePAM 5MG TABLET As Ordered ONE; +oxyCODONE 5MG TAB As Ordered ONE
== END ==
LOC: M PAIN 08:15
PROVIDERS: ATTEND Anesthesiology
DX: M79.12 Myalgia of auxiliary muscles, head and neck (principal); G89.29 Other chronic pain; I25.2 Old myocardial infarction; E78.00 Pure hypercholesterolemia, unspecified; M54.2 Cervicalgia; K21.9 Gastro-esophageal reflux disease without esophagitis; F17.210 Nicotine dependence, cigarettes, uncomplicated; H90.6 Mixed conductive and sensorineural hearing loss, bilateral; Z88.8 Allergy status to other drugs, medicaments and biological substances; Z79.82 Long term (current) use of aspirin; Z79.891 Long term (current) use of opiate analgesic; Z79.899 Other long term (current) drug therapy
CPT/HCPCS: 20552; J0665; J3301

== ENCOUNTER → 2024-03-15 | Outpatient (CLI) | payer MEDICARE, MEDICAID ==
[~2024-03-15] MED LIST changes: +ONDA-282 PO; -ONDA4TAB6 PO; -TRIAMCINOLONE ACETONIDE SUSP 40MG/ML 1ML VIAL As Ordered ONE; -diazePAM 5MG TABLET As Ordered ONE; -oxyCODONE 5MG TAB As Ordered ONE
== END ==
LOC: M PAIN 11:30
PROVIDERS: ATTEND Nurse Practitioner Family
DX: M79.12 Myalgia of auxiliary muscles, head and neck (principal); G89.29 Other chronic pain; I25.2 Old myocardial infarction; E78.00 Pure hypercholesterolemia, unspecified; M19.90 Unspecified osteoarthritis, unspecified site; K21.9 Gastro-esophageal reflux disease without esophagitis; F17.210 Nicotine dependence, cigarettes, uncomplicated; Z79.82 Long term (current) use of aspirin; Z79.891 Long term (current) use of opiate analgesic; Z79.899 Other long term (current) drug therapy; Z88.8 Allergy status to other drugs, medicaments and biological substances

== ENCOUNTER → 2024-04-22 | Outpatient (REF) | payer MEDICARE, MEDICAID ==
[~2024-04-22] MED LIST changes: +GABA-1490 PO; -GABA600T4 PO
[2024-04-22 17:30] LABS: OSMOLALITY URINE 433 MOSM/KG (50-1400)
[2024-04-22 17:42] LABS: SODIUM,RANDOM URINE 66 MMOL/L
[2024-04-22 18:33] LABS: BLOOD UREA NITROGEN 6 MG/DL (9-23); CALCIUM LEVEL 10.1 MG/DL (8.3-10.6); CARBON DIOXIDE LEVEL 28 MMOL/L (20-31); CHLORIDE LEVEL 104 MMOL/L (98-107); CREATININE FOR GFR 0.52 MG/DL (0.55-1.30); GLOMERULAR FILTRATION RATE > 60.0 (>45); GLUCOSE, FASTING 86 MG/DL (74-106); POTASSIUM SERUM 4.9 MMOL/L (3.5-5.1); SODIUM LEVEL 134 MMOL/L (136-145)
[2024-04-22 18:50] LABS: OSMOLALITY SERUM 285 MOSM/KG (275-295)
== END ==
LOC: M LAB REF 16:05
PROVIDERS: ATTEND Pediatrics
DX: E87.1 Hypo-osmolality and hyponatremia (principal)

== ENCOUNTER → 2024-04-28 | Outpatient (CLI) | payer MEDICARE, MEDICAID | LOC: M PAIN 11:15 | PROVIDERS: ATTEND Nurse Practitioner Family | DX: M47.812 Spondylosis without myelopathy or radiculopathy, cervical region (principal); Z79.891 Long term (current) use of opiate analgesic; G89.29 Other chronic pain; M54.2 Cervicalgia; I25.2 Old myocardial infarction; E78.00 Pure hypercholesterolemia, unspecified; K21.9 Gastro-esophageal reflux disease without esophagitis; F17.210 Nicotine dependence, cigarettes, uncomplicated; Z79.82 Long term (current) use of aspirin; Z79.899 Other long term (current) drug therapy; Z88.8 Allergy status to other drugs, medicaments and biological substances ==

== ENCOUNTER → 2024-05-16 | Outpatient (CLI) | payer MEDICARE, MEDICAID | LOC: M RAD 12:31 | PROVIDERS: ATTEND Internal Medicine Pulmonary Disease | DX: Z12.2 Encounter for screening for malignant neoplasm of respiratory organs (principal); F17.218 Nicotine dependence, cigarettes, with other nicotine-induced disorders; I25.10 Atherosclerotic heart disease of native coronary artery without angina pectoris; Z95.5 Presence of coronary angioplasty implant and graft; J43.2 Centrilobular emphysema ==

== ENCOUNTER → 2024-07-28 | Outpatient (CLI) | payer MEDICARE, MEDICAID ==
[~2024-07-28] MED LIST changes: +GABA-1172 PO; -GABA-282 PO; +[UNRECOGNIZED DRUG - CODE] MT; -[UNRECOGNIZED DRUG - CODE] MT
[2024-07-28 14:34] LABS: BLOOD UREA NITROGEN 7 MG/DL (9-23); CALCIUM LEVEL 10.5 MG/DL (8.3-10.6); CARBON DIOXIDE LEVEL 29 MMOL/L (20-31); CHLORIDE LEVEL 98 MMOL/L (98-107); CREATININE FOR GFR 0.52 MG/DL (0.55-1.30); GLOMERULAR FILTRATION RATE > 60.0 (>45); GLUCOSE, FASTING 86 MG/DL (74-106); PHOSPHORUS LEVEL 4.7 MG/DL (2.4-5.1); POTASSIUM SERUM 4.9 MMOL/L (3.5-5.1); SODIUM LEVEL 134 MMOL/L (136-145)
[2024-07-28 14:35] LABS: PTH INTACT 32.3 PG/ML (18.5-88.0)
== END ==
LOC: M LAB 12:50
PROVIDERS: ATTEND Nurse Practitioner Family
DX: M81.0 Age-related osteoporosis without current pathological fracture (principal); E55.9 Vitamin D deficiency, unspecified

== ENCOUNTER → 2024-07-28 | Outpatient (CLI) | payer MEDICARE, MEDICAID | LOC: M PAIN 11:30 | PROVIDERS: ATTEND Nurse Practitioner Family | DX: M47.812 Spondylosis without myelopathy or radiculopathy, cervical region (principal); E78.00 Pure hypercholesterolemia, unspecified; M19.90 Unspecified osteoarthritis, unspecified site; K21.9 Gastro-esophageal reflux disease without esophagitis; I25.2 Old myocardial infarction; F17.210 Nicotine dependence, cigarettes, uncomplicated; Z88.8 Allergy status to other drugs, medicaments and biological substances; Z79.891 Long term (current) use of opiate analgesic; Z79.82 Long term (current) use of aspirin; Z79.899 Other long term (current) drug therapy; M81.0 Age-related osteoporosis without current pathological fracture; E55.9 Vitamin D deficiency, unspecified | CPT/HCPCS: 36415; 80048; 82306; 83735; 83970; 84100; G0463 ==

== ENCOUNTER → 2025-06-13 | Outpatient (CLI) | payer MEDICARE, MEDICAID ==
[~2025-06-13] MED LIST changes: -ASPI-655 PO; +ASPI-737 PO; -EZET10TA21; -EZET10TA21 PO; +EZET10TA57; +EZET10TA57 PO; -IBUP-1022 PO; +IBUP600T42 PO
== END ==
LOC: M RAD 16:15
PROVIDERS: ATTEND Internal Medicine Pulmonary Disease
DX: Z12.2 Encounter for screening for malignant neoplasm of respiratory organs (principal); F17.218 Nicotine dependence, cigarettes, with other nicotine-induced disorders; J43.2 Centrilobular emphysema